=== PATIENT | male | born 1980 | race Caucasian/White ===

== ENCOUNTER → 2022-07-30 11:53 | Outpatient (POV) | payer MEDICAID, SELFPAY ==
--- NOTE | 2022-07-30 12:24 | EXP.PAIN.OV ---
[facility] Data of Consult Patient: new to practice Consult date: 07/30/22 Requesting Physician: Vivien Dobbs APRN Consult Narrative Reason for consult: ,Low back pain, right foot pain History of present illness: Mr. Gilman is a 42 year old male who presents today as a new patient. He is a referral from [facility]. Today he rates his pain a 9 out of 10. Patient states all of his pain is primarily in his low back. He states this is all related to a work injury that occurred 2 years ago. He did have a bulging disc and tried multiple injections for over 1 year. He had anything from epidurals to medial branch blocks however these did not provide significant relief. Patient did end up having a lumbar discectomy in 2021 at [facility]. He states he did initially get some relief however then the pain worsened including right foot and ankle numbness. He did end up having to have emergency surgery at [place] in June due to this. 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 He states he has had some improvement since and now his pain is just back at his lower back. Patient has tried Tylenol and Advil with no additional relief. He is also use lidocaine patches, topicals and ice with no additional relief. Patient does have an at home TENS unit. He has been prescribed [place] 7.5 mg twice a day from an outside provider. Patient denies any side effects from this medication however he states it does nothing for his pain. Patient is interested in any options we may be able to provide to give additional relief. He does state he has had a recent MRI of his lumbar spine and March at [place]. His Benitez is [id number]. Its been reviewed and appropriate. CC: Vivien Dobbs APRN [facility] Disclaimer: The information contained in this section may have been updated after the patient was seen, as this information can be updated by other users. Social History Smoking Status: Smoker, status unknown alcohol intake: former current occupational status: other Travel in the last 8 weeks: None Review of Systems Review of Systems Review of systems:: pertinent systems reviewed and negative unless documented below Review of systems (narrative): Review of Systems: General: No recent weight changes, no fever, no sleep disturbances Respiratory: No cough, no shortness of air, no recurring pulmonary infections Cardiovascular/peripheral vascular: No chest pain, no palpitations, no edema, no shortness of breath Gastrointestinal: No new onset incontinence, normal bowel movements reported Genitourinary: No new onset incontinence Musculoskeletal: Low back pain Psychiatric: [Normal mood/affect] Neurological: [Denies weakness in extremities], [denies balance issues] Meds Home Medications and Allergies New Prescriptions to Start Prescriptions: Objective Narrative: Physical Exam: General: Alert and oriented x3, no acute distress, pleasant and cooperative Lungs: Respirations even and unlabored, symmetrical chest expansion Eyes: PERRL Musculoskeletal: Flexion and extension of lumbar [spine] somewhat guarded secondary to pain, [antalgic gait noted] Neurological: Speech clear, no gross sensory deficit Oswestry index score of 44/88% Opioid Risk Tool Opioid Risk Tool-Male Family hx alcohol abuse: No Family hx illegal drugs: No Family hx rx drug abuse: No Personal hx alcohol abuse: No Personal hx illegal drugs: No Personal hx rx drug abuse: No Age: 16-45 years Hx of sexual abuse: No Mental health issues-ADD,OCD,Bipolar, etc: No Hx of depression: Yes Male Risk Score: 2 Assessment and Plan *Assessment and plan (1) Low back pain: Status: Acute Category: Medical Code(s): M54.50 - Low back pain, unspecified (2) Degenerative disc disease, lumbar: Status: Acute Category: Medical Code(s): M51.36 - Other intervertebral disc degeneration, lumbar regio
[2022-07-30 13:04] VITALS: BP 131/99; PULSE 97; RESP 18; O2SAT 97; BMI 30.7
== END ==
PROVIDERS: Visit Provider Nurse Practitioner Family
DX: M51.16 Intervertebral disc disorders with radiculopathy, lumbar region (principal); M21.379 Foot drop, unspecified foot; Z98.890 Other specified postprocedural states
CPT/HCPCS: 99202; G0463

== ENCOUNTER → 2022-09-24 08:25 | Outpatient (POV) | payer MEDICAID, SELFPAY ==
[2022-09-24 09:55] VITALS: BP 161/106; PULSE 88; RESP 18; O2SAT 96; BMI 33.2
--- NOTE | 2022-09-24 10:17 | A.OFFVIS_ITS ---
[facility] Pain Management SOAP Note Subjective:: This patient is a pleasant 42-year-old male that comes our clinic today requesting narcotics. He presents in a wheelchair today. His history is 2 lumbar disc surgeries. One was 2021 at [facility]. The other was at [place] and no other [place] earlier in 2022. Patient is scheduled with us October 08, 2022 for intrathecal pain pump trial. I discussed in detail with the patient regarding the need to be narcotic free in preparation for the pain pump trial. Patient will continue taking NSAIDs and Tylenol until October 08. Patient's Benitez #[id number] is been reviewed and appropriate. Objective:: Patient is awake alert [place] x3. In no acute distress. Flexion-extension lumbar spine limited due to presenting in a wheelchair today. Patient has significant foot drop on the right. Normal motor and sensory on the left lower extremity. Gait is antalgic. Assessment:: Degenerative disc lumbar spine multilevels. Lumbar radiculopathy. Postlaminectomy syndrome lumbar spine Plan:: Patient will return October 08, 2022 for intrathecal pain pump trial. [facility] Disclaimer: The information contained in this section may have been updated after the patient was seen, as this information can be updated by other users. Medical History (Updated 09/03/22 @ 15:31 by Anisa Barba [facility]) Asthma DDD (degenerative disc disease), lumbar GERD (gastroesophageal reflux disease) HTN (hypertension) Surgical History (Updated 07/30/22 @ 13:08 by Christina Gonzalez RN) H/O knee surgery H/O lumbar discectomy H/O shoulder surgery History of placement of ear tubes Social History (Updated 07/30/22 @ 13:09 by Chrsitina Gonzalez RN) Smoking Status: Smoker, status unknown alcohol intake: former substance use type: denies use current occupational status: other Travel in the last 8 weeks: None
== END ==
PROVIDERS: Visit Provider Nurse Anesthetist, Certified Registered
DX: M51.16 Intervertebral disc disorders with radiculopathy, lumbar region (principal); M96.1 Postlaminectomy syndrome, not elsewhere classified
CPT/HCPCS: 99212; G0463

== ENCOUNTER 2022-10-08 11:57 | Day surgery (SDC) | payer MEDICAID, SELFPAY ==
[2022-10-08] VITALS (8 sets, daily range): BP systolic 143–185; BP diastolic 74–92; PULSE 72–92; RESP 18; TEMP 36.7–37.1; O2SAT 94–98; BMI 30.7
--- NOTE | 2022-10-08 14:23 | PC.NURSE ---
1415- PT AMBULATED FROM WHEELCHAIR TO CHAIR AND STATES PAIN IS IMPROVED. RATES PAIN 3/10
--- NOTE | 2022-10-08 16:30 | EXP.PAIN.PRO ---
Procedure Date: 10/08/22 Time: 16:30 Anesthesiologist:: Baljinder Ceron MD Complications:: None Pre-procedure Diagnosis:: Postlaminectomy syndrome lumbar spine with lumbar radiculopathy symptoms Post-procedure Diagnosis:: Same Indications for Procedure:: This patient is a pleasant 42-year-old white male who we are treating for low back pain with lumbar radiculopathy symptoms. He has had 2 lumbar disc surgeries and according to Ortho since he is probably in need of another surgery. He is then off of oral narcotics as his Ortho physician has stopped prescribing them. He did recommend a intrathecal pain pump. He has failed all previous conservative treatments including injections, oral medications, physical therapy and he is not yet a candidate for surgery. He has had a successful psychological evaluation. He presents for intrathecal pump trial today. Procedure Details:: Pain pump trial Informed consent was obtained and the risk and benefits of the procedure was explained to the patient. The patient was taken to the procedure room and placed prone on the procedure table. Patient was prepped and draped in sterile fashion. C-arm fluoroscopy was used to view the lumbar spine. The skin and subcutaneous tissues were anesthetized using lidocaine. I placed a 18-gauge spinal needle into the L4-5 interspace and advanced until clear CSF was obtained. After this intrathecal catheter was inserted and advanced very easily to the L1 vertebral body. The needle was withdrawn. We were able to freely withdraw clear CSF through the catheter. We then injected intrathecal opioid single shot bolus of 25 mcg followed by saline and followed by the previous CSF that was withdrawn. The needle and catheter were then removed and a Band-Aid was placed. Patient tolerated the procedure well with no complications. We reevaluated the patient after 30 minutes to 1 hour. He was also reassessed by physical therapy. He was 90 to 100% better. He was much more functional. Pain was under control. This was by all means a successful trial. Patient was discharged home neurologic intact with good relief of pain symptoms. We will plan on permanent placement with intrathecal morphine 1 mg per mall to start at 100 mcg/day. Plan and Disposition:: We will follow-up with this patient in 1 week. Will reevaluate symptoms at that time. We will plan on permanent placement if the patient wishes to proceed with permanent placement of intrathecal pain pump. I did tell him that we will not give him any oral narcotics in the interim.
== END 2022-10-08 15:02 | disposition home or self-care (01) ==
LOC: SC.PAINP 11:59
PROVIDERS: Visit Provider Anesthesiology
DX: M96.1 Postlaminectomy syndrome, not elsewhere classified (principal); M54.16 Radiculopathy, lumbar region
CPT/HCPCS: 62323

== ENCOUNTER 2022-11-19 07:09 | Day surgery (SDC) | payer MEDICAID, SELFPAY ==
[2022-11-16 13:00] VITALS: BMI 31.4
[2022-11-19] VITALS (7 sets, daily range): BP systolic 114–141; BP diastolic 73–94; PULSE 75–93; RESP 16–18; TEMP 36.4–36.7; O2SAT 90–98
--- NOTE | 2022-11-19 07:58 | EXP.ANES.CKL ---
[facility] Disclaimer: The information contained in this section may have been updated after the patient was seen, as this information can be updated by other users. Medical History Asthma DDD (degenerative disc disease), lumbar GERD (gastroesophageal reflux disease) HTN (hypertension) Surgical History H/O knee surgery H/O lumbar discectomy H/O shoulder surgery History of appendectomy History of placement of ear tubes Hx of resection of small bowel Family History Other Colon cancer Family history of diabetes mellitus type II Family history of myocardial infarction Family history of stroke Social History Smoking Status: Former smoker alcohol intake: never substance use type: denies use current occupational status: disabled Travel in the last 8 weeks: None household members: significant other housing: house lives independently: Yes marital status: single education level: college service: No caffeine: Yes special vimal needs: No agree to transfusion: No do you feel safe at home: Yes victim of physical abuse: No victim of emotional abuse: No victim of sexual abuse: No would you like helpful sources: No [facility] Anesthesia Checklist Patient Identification Patient Identification: Arm Band and Verbal (Name & ) Structural Data Admitted From: Home Planned Operative Procedure/s: IPPP Consent for Planned Operative Procedure(s) Verified: Yes NPO Status Verified Time NPO: 00:00 Additional verifications Anesthesia Reactions: No Hx Blood Transfusions: No Blood Transfusion Reaction: No Airway Assessment C-Spine Mobility Assessed: Yes TMJ Mobility Assessed: Yes Dentition: Good Dentition Neurological Assessment Level of Consciousness: Awake Hx Seizures: No Numbness or tingling in extremities: No Anesthesia Plan Anesthesia Risk discussed: Yes Anesthesia Plan: Verified ASA Class: II Anesthesia Type: MAC
[2022-11-19 08:07] LABS: Anion Gap 11.3 mEq/L (5-15); Blood Urea Nitrogen 14 mg/dl (9-20); Calcium 8.8 mg/dl (8.4-10.2); Carbon Dioxide 25 mmol/L (22.0-30.0); Chloride 107 mmol/L (98-107); Creatinine Clearance Estimated 175 mL/min (50-200); Estimated Glomerular Filt Rate 107 ml/min (>60); GFR (African American) 129 ML/MIN (>60); Glucose 121 mg/dl (74-100); Potassium 3.3 mmoL/L (3.5-5.1); Sodium 140 mmol/L (136-145)
[2022-11-19 09:17] LABS: Hematocrit 40.9 % (42.0-52.0); Hemoglobin 13.7 g/dL (14.1-18.0); Mean Corpuscular HGB Conc 33.5 g/dL (31.8-35.4); Mean Corpuscular Hemoglobin 29.4 pg (27.0-31.2); Mean Corpuscular Volume 87.8 fl (80-94); Platelet Count 241 K/mm3 (142-424); Red Blood Count 4.66 M/mm3 (4.60-6.20); White Blood Count 10.2 K/mm3 (4.8-10.8)
[2022-11-19 09:18] LABS: Basophils # 0.1 K/mm3 (0-0.2); Basophils % 0.8 % (0.1-2.0); Eosinophils # 0.1 K/mm3 (0.0-0.4); Eosinophils % 0.9 % (0.1-12.0); Lymphocytes # 2.1 K/mm3 (0.7-4.5); Mean Platelet Volume 10.6 fl (7.4-10.4); Monocytes # 0.6 K/mm3 (0.1-1.0); Neutrophils # 7.4 K/mm3 (1.8-7.8); Neutrophils % 71.9 % (37.0-80.0)
--- NOTE | 2022-11-19 12:30 | P.OP_ITS ---
Date of procedure: 11/19/22 Pre-op Diagnosis:: Post laminectomy syndrome lumbar spine with lumbar radiculopathy symptoms Post-op Diagnosis:: Same Procedure performed:: Permanent placement intrathecal pain pump with generator placement and tunneled intrathecal catheter Surgeon:: Baljinder Ceron MD CLINIC CHARGE NURSE:: Other Anesthesia: MAC Estimated blood loss (mL): 5 Clinical Note:: This patient is a pleasant 42-year-old white male who we have been treating for low back pain with lumbar radiculopathy symptoms and postlaminectomy syndrome with CRPS. He has failed all previous conservative therapy. He is off all oral narcotics. He has had a successful psychological evaluation. He has had a successful intrathecal pump trial. He presents for permanent placement of his intrathecal pain pump today. Operative findings:: None Operative note:: Informed consent was obtained the risk and benefits of the procedure were explained to the patient. Patient was taken the operating placed prone on the procedure table. Patient was prepped and draped in sterile fashion. C-arm fluoroscopy was used to view the right flank. [facility] between the 12th rib and iliac crest I made an incision after anesthetizing skin and subcutaneous tissues. I created the pocket for the pump generator. C-arm fluoroscopy was then used to view the lumbar spine. The skin and subcutaneous tissues were an esthetized and lidocaine. I made an incision and dissected down to the lumbar paraspinous fascia. A 17-gauge spinal needle was inserted and advanced into the L5-S1 interspace. After obtaining clear CSF intrathecal catheter was inserted and advanced very easily to the T10 vertebral body. We were unable to advance any further. The stylette of the catheter and the needle withdrawn. Catheter placement was checked in AP and lateral views. The catheter was posterior in the intrathecal space. Catheter was secured to the fascia with anchoring devices and 2-0 Prolene. I filled the pump with 20 mils of intrathecal morphine 1 mg per mill. I tunneled the catheter from the back to the pump pocket and attached catheter to the pump. We were able to freely withdraw clear CSF through the sideport. The pump was placed in the pocket. We did use an antibiotic pouch in the pocket. Again we were able to freely withdraw clear CSF through the catheter access port. Both incisions were irrigated with antibiotic solution. Both incisions were then closed with 2-0 Vicryl followed by 4-0 nylon and saúl. Patient tolerated the procedure well with no complications. Pump was interrogated and started at 100 mcg/day. Patient tolerated the procedure well with no complications. Patient was discharged home neurologic intact with good relief of pain symptoms. Plan and disposition: We will follow-up with this patient in 1 week for wound check and reprogram. We will follow-up in 2 to 3 weeks for suture and staple removal. Condition: stable Disposition: PACU Complications:: None
== END 2022-11-19 12:00 | disposition home or self-care (01) ==
PROVIDERS: Visit Provider Anesthesiology
PROC: (CPT 62350; principal; 2022-11-19 08:30)
DX: M96.1 Postlaminectomy syndrome, not elsewhere classified (principal); M54.16 Radiculopathy, lumbar region
CPT/HCPCS: 62350; 62362; 80048; 85025; 96374; C1772; C1876; J2405

== ENCOUNTER → 2022-11-25 10:18 | Outpatient (POV) | payer MEDICAID, SELFPAY ==
--- NOTE | 2022-11-25 10:24 | A.OFFVIS_ITS ---
[facility] Pain Management SOAP Note Subjective:: Patient is a pleasant 42-year-old male who presents today for postop follow-up of intrathecal pain pump placement on 11/19/2022. We are currently treating the patient for degenerative disc disease of lumbar spine with lumbar radiculopathy symptoms, low back pain, status post lumbar discectomy, CRPS of the lower extremity, history of dropfoot. Today he rates his pain a Patient denies any new trauma or injury. He denies any change location or type of pain he experiences or any problems following his surgical procedure. He states this is all related to a work injury that occurred 2 years ago. He did have a bulging disc and tried multiple injections for over 1 year. He had anything from epidurals to medial branch blocks however these did not provide significant relief. Patient did end up having a lumbar discectomy in 2021 at [facility]. He states he did initially get some relief however then the pain worsened including right foot and ankle numbness. He did end up having to have emergency surgery at [place] in June due to this. 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 He states he has had some improvement since and now his pain is just back at his lower back. Patient has tried Tylenol and Advil with no additional relief. He is also use lidocaine patches, topicals and ice with no additional relief. Patient does have an at home TENS unit. He has been prescribed [place] 7.5 mg twice a day from an outside provider. Patient denies any side effects from this medication however he states it does nothing for his pain. Patient is interested in any options we may be able to provide to give additional relief. He does state he has had a recent MRI of his lumbar spine and March at [place]. His Benitez is [id number]. Its been reviewed and appropriate. [facility] Disclaimer: The information contained in this section may have been updated after the patient was seen, as this information can be updated by other users. Medical History Asthma DDD (degenerative disc disease), lumbar GERD (gastroesophageal reflux disease) HTN (hypertension) Surgical History H/O knee surgery H/O lumbar discectomy H/O shoulder surgery History of appendectomy History of placement of ear tubes Hx of resection of small bowel Family History Other Colon cancer Family history of diabetes mellitus type II Family history of myocardial infarction Family history of stroke Social History Smoking Status: Former smoker alcohol intake: never substance use type: denies use current occupational status: disabled Travel in the last 8 weeks: None household members: significant other housing: house lives independently: Yes marital status: single education level: college service: No caffeine: Yes special vimal needs: No agree to transfusion: No do you feel safe at home: Yes victim of physical abuse: No victim of emotional abuse: No victim of sexual abuse: No would you like helpful sources: No
[2022-11-25 10:34] VITALS: BP 161/93; PULSE 87; RESP 20; O2SAT 95; BMI 31.4
--- NOTE | 2022-11-25 11:21 | EXP.PAIN.PRO ---
Procedure Date: 11/25/22 Time: 10:24 Anesthesiologist:: Vivien Dobbs APRN Complications:: None Pre-procedure Diagnosis:: Degenerative disc disease of lumbar spine with lumbar radiculopathy symptoms, lumbar postlaminectomy syndrome Post-procedure Diagnosis:: Same Indications for Procedure:: Patient is a pleasant 42-year-old male who presents today for postop follow-up of intrathecal pain pump placement on 11/19/2022. We are currently treating the patient for degenerative disc disease of lumbar spine with lumbar radiculopathy symptoms, low back pain, status post lumbar discectomy, CRPS of the lower extremity, history of dropfoot. Today he rates his pain a 8 out of 10. Patient denies any new trauma or injury. He denies any change location or type of pain he experiences or any problems following his surgical procedure. Patient states he continues to have pain in his low back and left knee. He is currently managed with diazepam 5 mg daily from an outside provider. His intrathecal pump medication is morphine 1 mg/mL with a daily dose of 0.1 mg/day. Patient denies any side effects from this medication. Physical Exam: General: Alert and oriented x3, no acute distress, pleasant and cooperative Lungs: Respirations even and unlabored, symmetrical chest expansion Eyes: PERRL Musculoskeletal: Flexion and extension of lumbar [spine] somewhat guarded secondary to pain, [antalgic gait noted] Neurological: Speech clear, no gross sensory deficit Skin: Incision sites clean, dry, well approximated with no erythema noted, saúl and sutures intact Procedure Details:: Informed consent was obtained and the risk and benefits of the procedure were explained to the patient. Patient was taken to the procedure room where noninvasive monitoring was placed including noninvasive blood pressure cuff and pulse oximeter. Patient's pump was interrogated and was reprogrammed to morphine 0.1201 mg/day. The patient tolerated the procedure well with no complications. Plan and Disposition:: Patient's incision sites are clean, dry, well approximated with no erythema noted and sutures and saúl intact. I have discussed with the patient to continue his postop restrictions of minimal bending, lifting or twisting, no submerging in water until his incisions are fully healed and to continue to wear his abdominal binder to prevent seroma formation. I have also discussed with the patient that he may benefit from intra-articular knee injections in the future as well as going over with him regarding seeing his neurosurgeon to discuss again whether or not if surgical intervention is needed in the future. Patient tolerated his intrathecal increase with no complications and was discharged neurologically intact. Patient will return to clinic in 2 weeks for reevaluation of symptoms and possible intrathecal adjustment. I have counseled the patient at this time we will not set up his PTM device. Patient has been instructed to contact the clinic with any concerns before the next appointment. Dr. Ceron has reviewed this note and agrees with this plan of care. This note was dictated using voice recognition software and make contain errors or omissions. -- It Is medically necessary for this patient to continue to have their intrathecal pump refilled at regular intervals. This patient had an intrathecal pain pump implanted after meeting criteria of chronic intractable pain for greater than 3 months and failing conservative treatments. Patient has committed and been compliant to the treatment plan and all planned follow up care. Since implantation of the intrathecal pain pump, the patient has had decreased pain and been more functional. Oral medications have been reduced including intake of oral opioids. Patient continues to do well with intrathecal therapy with decrease in pain symptoms and increase in functional status. Stopping intrathecal medications can lead to life threatening withdrawal, seizur
== END | disposition home or self-care (01) ==
PROVIDERS: Visit Provider Nurse Practitioner Family
DX: M51.16 Intervertebral disc disorders with radiculopathy, lumbar region (principal); M96.1 Postlaminectomy syndrome, not elsewhere classified
CPT/HCPCS: 62368

== ENCOUNTER → 2022-12-01 08:58 | Outpatient (POV) | payer MEDICAID, SELFPAY ==
--- NOTE | 2022-12-01 09:44 | EXP.PAIN.PRO ---
Procedure Date: 12/01/22 Time: 09:44 Anesthesiologist:: Vivien Dobbs APRN Complications:: None Pre-procedure Diagnosis:: Degenerative disc disease of lumbar spine with lumbar radiculopathy symptoms, lumbar postlaminectomy syndrome Post-procedure Diagnosis:: Same Indications for Procedure:: Patient is a pleasant 42-year-old male who presents today for intrathecal pain pump reprogramming adjustment. The patient is being treated for degenerative disc disease of lumbar spine with lumbar radiculopathy symptoms, postlaminectomy syndrome. Patient is currently being managed with morphine 1 mg/mL with a daily dose of 0.1201 mg/day. Patient denies any side effects from this medication. Patient rates pain a 9 out of 10. Drug screen is appropriate. Benitez [id number] has been reviewed and is appropriate. Physical exam General: Alert and oriented x3, no acute distress, pleasant and cooperative Lungs: Respirations even and unlabored, symmetrical chest expansion Eyes: PERRL Musculoskeletal: Flexion and extension of lumbar [spine] somewhat guarded secondary to pain, [antalgic gait noted] Neurological: Speech clear, no gross sensory deficit Skin: Incision sites clean, dry, well approximated mild erythema noted at right lateral incision saúl and sutures intact Procedure Details:: Informed consent was obtained and the risk and benefits of the procedure were explained to the patient. Patient was taken to the procedure room where noninvasive monitoring was placed including noninvasive blood pressure cuff and pulse oximeter. Patient's pump was interrogated and was reprogrammed to morphine 0.1439 mg/day. The patient tolerated the procedure well with no complications. Plan and Disposition:: I have counseled the patient to continue his postop restrictions and that at next week's appointment we will plan on removing sutures and salú if indicated. Patient tolerated his intrathecal adjustment with no complications and was discharged neurologically intact. Patient has been instructed to contact the clinic with any concerns before the next appointment. Dr. Ceron has reviewed this note and agrees with this plan of care. This note was dictated using voice recognition software and make contain errors or omissions. -- It Is medically necessary for this patient to continue to have their intrathecal pump refilled at regular intervals. This patient had an intrathecal pain pump implanted after meeting criteria of chronic intractable pain for greater than 3 months and failing conservative treatments. Patient has committed and been compliant to the treatment plan and all planned follow up care. Since implantation of the intrathecal pain pump, the patient has had decreased pain and been more functional. Oral medications have been reduced including intake of oral opioids. Patient continues to do well with intrathecal therapy with decrease in pain symptoms and increase in functional status. Stopping intrathecal medications can lead to life threatening withdrawal, seizures, cardiac arrest, severe pain, and possible . Pumps that are not refilled at regular intervals can be damages and cause and need for replacement. We continually titrate dose and concentration to optimize pain relief and function. We are limited in concentration for certain drugs to safely deliver medications through the pump and stay within the recommendations from the Polyanalgesic Consensus Committee Guidelines. Depending on dose and concentration these pumps may need to be refilled sooner than 3 months as we titrate.
[2022-12-01 12:04] VITALS: BP 145/102; PULSE 85; RESP 18; O2SAT 96; BMI 14.3
== END | disposition home or self-care (01) ==
PROVIDERS: Visit Provider Nurse Practitioner Family
DX: M51.16 Intervertebral disc disorders with radiculopathy, lumbar region (principal); M96.1 Postlaminectomy syndrome, not elsewhere classified
CPT/HCPCS: 62368; 99213; G0463

== ENCOUNTER → 2022-12-09 09:32 | Outpatient (POV) | payer MEDICAID, SELFPAY ==
--- NOTE | 2022-12-09 09:54 | EXP.PAIN.PRO ---
Procedure Date: 12/09/22 Time: 09:54 Anesthesiologist:: Vivien Dobbs APRN Complications:: None Pre-procedure Diagnosis:: Degenerative disc disease of lumbar spine with lumbar radiculopathy symptoms, lumbar postlaminectomy syndrome Post-procedure Diagnosis:: Same Indications for Procedure:: Patient is a pleasant 42-year-old male who presents today for follow-up and intrathecal pain pump reprogramming adjustment. The patient is being treated for degenerative disc disease of lumbar spine with lumbar radiculopathy symptoms, postlaminectomy syndrome. Today he rates his pain a 9 out of 10. Patient states he continues to have low back and leg pain and feels like he is not at the right dosage on his intrathecal pump. Patient is currently being managed with morphine 1 mg/mL with a daily dose of 0.1439 mg/day. Patient denies any side effects from this medication. Patient rates pain a 9 out of 10. Drug screen is appropriate. Patient is also prescribed diazepam 5 mg daily from an outside provider. [facility] [id number] has been reviewed and is appropriate. Physical exam General: Alert and oriented x3, no acute distress, pleasant and cooperative Lungs: Respirations even and unlabored, symmetrical chest expansion Eyes: PERRL Musculoskeletal: Flexion and extension of lumbar [spine] somewhat guarded secondary to pain, [antalgic gait noted] Neurological: Speech clear, no gross sensory deficit Skin: Incision sites clean, dry, well approximated mild erythema noted at right lateral incision saúl and sutures intact Procedure Details:: Informed consent was obtained and the risk and benefits of the procedure were explained to the patient. Patient was taken to the procedure room where noninvasive monitoring was placed including noninvasive blood pressure cuff and pulse oximeter. Patient's pump was interrogated and was reprogrammed to morphine 0.1726mg/day. The patient tolerated the procedure well with no complications. Plan and Disposition:: Patient's incision sites are clean, dry, well-approximated with mild erythema noted at the right lateral incision. He did have his sutures and saúl all removed during today's visit and Steri-Strips applied. I have counseled the patient to continue his postop restrictions of minimal bending, twisting or lifting, no submerging in water until his incisions are fully healed and to continue to wear his abdominal binder to prevent seroma formation. Patient was set up with his PTM device during today's visit. I have counseled the patient that he will be able to have 4 boluses during a 24-hour period with this device. Teaching was done on the device during today's visit. Patient tolerated his intrathecal increase with no complications and was discharged neurologically intact. Patient will return to clinic in 2 weeks for reevaluation of symptoms and possible readjustment of his intrathecal pump. Patient has been instructed to contact the clinic with any concerns before the next appointment. Dr. Ceron has reviewed this note and agrees with this plan of care. This note was dictated using voice recognition software and make contain errors or omissions. -- It Is medically necessary for this patient to continue to have their intrathecal pump refilled at regular intervals. This patient had an intrathecal pain pump implanted after meeting criteria of chronic intractable pain for greater than 3 months and failing conservative treatments. Patient has committed and been compliant to the treatment plan and all planned follow up care. Since implantation of the intrathecal pain pump, the patient has had decreased pain and been more functional. Oral medications have been reduced including intake of oral opioids. Patient continues to do well with intrathecal therapy with decrease in pain symptoms and increase in functional status. Stopping intrathecal medications can lead to life threatening withdrawal, seizures, cardiac arrest, severe pain, and
[2022-12-09 11:38] VITALS: BP 162/113; PULSE 86; RESP 18; O2SAT 92; BMI 31.4
== END ==
PROVIDERS: Visit Provider Nurse Practitioner Family
DX: M51.16 Intervertebral disc disorders with radiculopathy, lumbar region (principal); M96.1 Postlaminectomy syndrome, not elsewhere classified
CPT/HCPCS: 62368; 99213; G0463

== ENCOUNTER → 2022-12-16 13:41 | Outpatient (POV) | payer MEDICAID, SELFPAY ==
--- NOTE | 2022-12-16 13:58 | EXP.PAIN.PRO ---
Procedure Date: 12/16/22 Time: 13:58 Anesthesiologist:: Vivien Dobbs APRN Complications:: None Pre-procedure Diagnosis:: Degenerative disc disease of lumbar spine with lumbar radiculopathy symptoms, lumbar postlaminectomy syndrome Post-procedure Diagnosis:: Same Indications for Procedure:: Patient is a pleasant 42-year-old male who presents today for intrathecal pain pump reprogramming adjustment. The patient is being treated for degenerative disc disease of lumbar spine with lumbar radiculopathy symptoms, lumbar postlaminectomy syndrome. Patient is currently being managed with morphine 1 mg/mL with a daily dose of 0.1726mg/day. Patient denies any side effects from this medication. Patient rates pain a 10 out of 10. He does state that he just does not feel like he is getting significant relief with this medication. He is requesting to be increased more than 20% at today's visit. He does state that previously his neurosurgeon was wanting to do an additional surgical intervention however he wanted his pain much more controlled. Drug screen is appropriate. [facility] [id number] has been reviewed and is appropriate. Physical exam General: Alert and oriented x3, no acute distress, pleasant and cooperative Lungs: Respirations even and unlabored, symmetrical chest expansion Eyes: PERRL Musculoskeletal: Flexion and extension of lumbar [spine] somewhat guarded secondary to pain, [antalgic gait noted] Neurological: Speech clear, no gross sensory deficit Procedure Details:: Informed consent was obtained and the risk and benefits of the procedure were explained to the patient. Patient was taken to the procedure room where noninvasive monitoring was placed including noninvasive blood pressure cuff and pulse oximeter. Patient's pump was interrogated and was reprogrammed to morphine 0.2073 mg/day. The patient tolerated the procedure well with no complications. Plan and Disposition:: Patient tolerated his intrathecal increase with no complications and was discharged neurologically intact. I have counseled the patient that unfortunately we are not able to go at higher increases due to risk of oversedation or risk of increased side effects. I have explained to the patient that his safety is our highest priority and unfortunately we have increased his pump medication at a slow and gradual rates. Patient acknowledges understanding of this. Patient will return to clinic in 2 weeks for reevaluation of symptoms and plan of care. Patient has been instructed to contact the clinic with any concerns before the next appointment. Dr. Ceron has reviewed this note and agrees with this plan of care. This note was dictated using voice recognition software and make contain errors or omissions. -- It Is medically necessary for this patient to continue to have their intrathecal pump refilled at regular intervals. This patient had an intrathecal pain pump implanted after meeting criteria of chronic intractable pain for greater than 3 months and failing conservative treatments. Patient has committed and been compliant to the treatment plan and all planned follow up care. Since implantation of the intrathecal pain pump, the patient has had decreased pain and been more functional. Oral medications have been reduced including intake of oral opioids. Patient continues to do well with intrathecal therapy with decrease in pain symptoms and increase in functional status. Stopping intrathecal medications can lead to life threatening withdrawal, seizures, cardiac arrest, severe pain, and possible . Pumps that are not refilled at regular intervals can be damages and cause and need for replacement. We continually titrate dose and concentration to optimize pain relief and function. We are limited in concentration for certain drugs to safely deliver medications through the pump and stay within the recommendations from the Polyanalgesic Consensus Committee Guidelines. Depending on dose
[2022-12-16 14:39] VITALS: BP 116/92; PULSE 83; RESP 20; O2SAT 95; BMI 31.4
== END | disposition home or self-care (01) ==
PROVIDERS: Visit Provider Nurse Practitioner Family
DX: M51.16 Intervertebral disc disorders with radiculopathy, lumbar region (principal); M96.1 Postlaminectomy syndrome, not elsewhere classified; Z97.8 Presence of other specified devices
CPT/HCPCS: 62368; 99212; 99213; G0463

== ENCOUNTER → 2022-12-21 13:22 | Outpatient (POV) | payer MEDICAID, SELFPAY ==
[2022-12-21 13:50] VITALS: BP 150/78; PULSE 88; RESP 20; TEMP 37.2; O2SAT 95; BMI 32.1
--- NOTE | 2022-12-21 13:53 | EXP.PAIN.PRO ---
Procedure Date: 12/21/22 Time: 13:50 Anesthesiologist:: Manjinder Leach CRNA Complications:: None Pre-procedure Diagnosis:: Degenerative disc lumbar spine multilevels. Lumbar radiculopathy. Lumbar postlaminectomy syndrome Post-procedure Diagnosis:: Same. Indications for Procedure:: Patient is a very pleasant 42-year-old male that comes our clinic today for follow-up visit regarding his intrathecal pain pump rate. Patient is about 6 weeks into his implant. He is currently being managed with morphine sulfate 1 mg/mL at a rate of 0.2073 mg/day. Patient complained of significant 10/10 pain in the lumbar back area including bilateral hips. He describes pain as constant, dull, aching. Patient presents with a rollator today due to pain in the low back compromising ambulation ability. Patient was in the office on 12/16/2022 for intrathecal pain pump rate increased. He is requesting increase today as well. Procedure Details:: Details of the procedure explained to the patient. The patient taken the procedure room placed in the sitting position. The pump was interrogated. Patient's current rate is 0.2073 mg/day. We will increase him to 0.2283 mg/day. Patient tolerated procedure without difficulty. No complications. Patient will follow-up in 2 weeks for reevaluation. Plan and Disposition:: Patient was discharged without incident.
== END | disposition home or self-care (01) ==
PROVIDERS: Visit Provider Nurse Practitioner Family
DX: M51.16 Intervertebral disc disorders with radiculopathy, lumbar region (principal); M96.1 Postlaminectomy syndrome, not elsewhere classified; Z97.8 Presence of other specified devices
CPT/HCPCS: 62368

== ENCOUNTER → 2023-01-07 10:00 | Outpatient (POV) | payer MEDICAID, SELFPAY ==
[2023-01-07 10:32] VITALS: BP 152/98; PULSE 104; RESP 20; O2SAT 97; BMI 32.1
--- NOTE | 2023-01-07 10:32 | A.OFFVIS_ITS ---
[facility] Pain Management SOAP Note Subjective:: This patient is a very pleasant 42-year-old male that comes our clinic today in a electric scooter. Patient is not ambulatory secondary to lumbar back pain as well as bilateral hip and leg radicular symptoms. Patient had intrathecal pain pump implantation 8 weeks ago. He is currently being managed with morphine sulfate 1 mg/mL at 0.2283 mg/day. Patient was increased 2 weeks ago. Prior to that he had been increased 1 week prior. Patient continued to complain of severe low back pain he describes as constant, dull, sharp, stabbing, debilitating. Patient states the intrathecal pain pump is not working. However, patient had a excellent trial of fentanyl 25 mcg. Patient states since implantation he has essentially had no relief. I discussed in detail with the patient regarding treatment options. I recommend we turn the pump to minimal flow for 7 days. I explained in detail to the patient we would know as to whether the the pump is helping him to some degree based on his response from turning the pump off. Patient does voice some concern regarding turning the pump to minimal flow. However, I informed the patient that we would not continue turning the pump up if in fact is not helping to any degree. Patient states his pain is 10/10 today. Patient's Benitez #[id number] has been reviewed and appropriate. We will see the patient next Tuesday for follow-up visit and decide what we will do regarding the intrathecal pain pump management. Objective:: Patient is awake alert [place] x3. In no acute distress. Flexion-extension lumbar spine guarded secondary to pain. Deep tendon reflexes upper and lower extremities normal. Motor strength upper lower extremities normal however patient in a motorized wheelchair secondary to increased pain. Assessment:: Degenerative disc lumbar spine multilevels. Lumbar radiculopathy. Lumbar postlaminectomy syndrome Plan:: Patient return in 7 days. We will decide at that time regarding intrathecal pain pump rate and future management. [facility] Disclaimer: The information contained in this section may have been updated after the patient was seen, as this information can be updated by other users. Medical History Asthma DDD (degenerative disc disease), lumbar GERD (gastroesophageal reflux disease) HTN (hypertension) Surgical History H/O knee surgery H/O lumbar discectomy H/O shoulder surgery History of appendectomy History of placement of ear tubes Hx of resection of small bowel Family History Other Colon cancer Family history of diabetes mellitus type II Family history of myocardial infarction Family history of stroke Social History Smoking Status: Former smoker alcohol intake: never substance use type: denies use current occupational status: other Travel in the last 8 weeks: None household members: significant other housing: house lives independently: Yes marital status: single education level: college service: No caffeine: Yes special vimal needs: No agree to transfusion: No do you feel safe at home: Yes victim of physical abuse: No victim of emotional abuse: No victim of sexual abuse: No would you like helpful sources: No
== END ==
PROVIDERS: Visit Provider Nurse Anesthetist, Certified Registered
DX: M51.16 Intervertebral disc disorders with radiculopathy, lumbar region (principal); M96.1 Postlaminectomy syndrome, not elsewhere classified; Z97.8 Presence of other specified devices
CPT/HCPCS: 62368; 99212; 99213; G0463

== ENCOUNTER → 2023-01-10 11:25 | Outpatient (POV) | payer MEDICAID, SELFPAY ==
--- NOTE | 2023-01-10 12:11 | EXP.PAIN.PRO ---
Procedure Date: 01/10/23 Time: 12:11 Anesthesiologist:: Vivien Dobbs APRN Complications:: None Pre-procedure Diagnosis:: Degenerative disc disease of lumbar spine with lumbar radiculopathy symptoms, lumbar postlaminectomy syndrome, left knee pain/OA Post-procedure Diagnosis:: Same Indications for Procedure:: Patient is a pleasant 42-year-old male who presents today for intrathecal adjustment and reprogram as well as follow-up. We are currently treating the patient for degenerative disc disease of lumbar spine with lumbar radiculopathy symptoms, lumbar postlaminectomy syndrome, left knee pain. Today he rates his pain a 10 out of 10. Patient denies any new trauma or injury. At his last visit he was adjusted down to minimal flow of his intrathecal pump because he felt like he was not noticing any additional improvement. Patient does state today that he really did get a true picture of how well the pump medication is working. He is currently managed with intrathecal morphine 1 mg/mL with a daily dose of 0.0063 mg/day. Patient denies any side effects from this medication. He was previously at 0.2283 mg/day. Patient does state that it does help with his overall back pain however he continues to have worsening left knee pain. He states the pain is a constant aching, throbbing sensation that is worse with increased activity. He states he has gotten injections in the past in this joint with some improvement. Patient states that his previous orthopedic doctor did state that it was [id number] and that he needed a total knee replacement. Patient does state that the pain interferes with his ability perform activities of daily living such as cooking and cleaning. Patient states he can even walk due to the worsening pain. Patient does present today in a motorized wheelchair. His Benitez is [id number]. Its been reviewed and appropriate. Physical Exam: General: Alert and oriented x3, no acute distress, pleasant and cooperative Lungs: Respirations even and unlabored, symmetrical chest expansion Eyes: PERRL Musculoskeletal: Flexion and extension of left knee, lumbar [spine] somewhat guarded secondary to pain, [antalgic gait noted] Neurological: Speech clear, no gross sensory deficit Procedure Details:: Informed consent was obtained and the risk and benefits of the procedure were explained to the patient. Patient was taken to the procedure room where noninvasive monitoring was placed including noninvasive blood pressure cuff and pulse oximeter. Patient's pump was interrogated and was reprogrammed to morphine 0.2702 mg/day. The patient tolerated the procedure well with no complications. Plan and Disposition:: In order to monitor for worsening side effects and keep him safe we cannot do any more than 20% increases every 2 weeks. I have counseled the patient due to his increasing left knee pain with limited range of motion that he may benefit from a genicular nerve block. Risk and benefits were explained to the patient and he would like to proceed forward with this plan of care. Patient is not on any blood thinners. Patient has tried and failed conservative therapies for his left knee pain such as oral medications, heat and ice, topicals, physical therapy, at home stretching and exercise for longer than 12 weeks. We will submit to insurance for a left genicular nerve block. Patient will return to clinic in 2 weeks for reevaluation of symptoms and intrathecal adjustment and reprogram. Patient tolerated his intrathecal increase with no complications and was discharged neurologically intact. I have counseled the patient that patient has been instructed to contact the clinic with any concerns before the next appointment. Dr. Ceron has reviewed this note and agrees with this plan of care. This note was dictated using voice recognition software and make contain errors or omissions. -- It Is medically necessary for this patient to continue to have their intra
[2023-01-10 12:24] VITALS: BP 136/98; PULSE 96; RESP 21; O2SAT 97; BMI 32.1
== END | disposition home or self-care (01) ==
PROVIDERS: Visit Provider Nurse Practitioner Family
DX: M51.16 Intervertebral disc disorders with radiculopathy, lumbar region (principal); M96.1 Postlaminectomy syndrome, not elsewhere classified; M17.12 Unilateral primary osteoarthritis, left knee; Z97.8 Presence of other specified devices
CPT/HCPCS: 62368; 99213; G0463

== ENCOUNTER 2023-01-25 13:06 | Day surgery (SDC) | payer MEDICAID, SELFPAY ==
[2023-01-25 13:25] VITALS: BP 137/77; PULSE 96; RESP 18; TEMP 37.3; O2SAT 93; BMI 32.1
[2023-01-25 13:37] VITALS: BP 176/111; PULSE 102; RESP 18; O2SAT 95
[2023-01-25 13:39] VITALS: BP 176/100; PULSE 102; RESP 18; O2SAT 95
--- NOTE | 2023-01-25 13:42 | EXP.PAIN.PRO ---
Procedure Date: 01/25/23 Time: 13:45 Anesthesiologist:: Manjinder Leach CRNA Complications:: None Pre-procedure Diagnosis:: Degenerative disc lumbar spine multilevels. Lumbar radiculopathy. Lumbar postlaminectomy syndrome. Post-procedure Diagnosis:: Same. Indications for Procedure:: Patient is a very pleasant 42-year-old male that comes our clinic today for intrathecal pain pump interrogation and refill. Patient currently being managed with morphine sulfate 1 mg/mL at a rate of 0.2702 mg/day. Patient has multiple complaints regarding different anatomical areas of his body that are painful. Patient rates his overall pain 7/10. Patient's intrathecal pain pump was increased by 20% on 01/10/2023. Procedure Details:: Details of the procedure explained to the patient. The patient taken the procedure room placed in the sitting position. The area over the pump was cleaned using chlorhexidine as a cleansing solution. The pump was interrogated. The pump was accessed with ease using a 22-gauge inch and a half needle. 4 mL of solution was withdrawn and discarded appropriately. The pump was then filled with 20 cc of a solution containing morphine sulfate 1 mg/mL. Patient tolerated the procedure without difficulty. There are no complications. Plan and Disposition:: Patient was discharged without incident.
[2023-01-25 13:50] VITALS: BP 152/96; PULSE 100; RESP 18; O2SAT 93
== END 2023-01-25 13:50 | disposition home or self-care (01) ==
PROVIDERS: PCP Internal Medicine; Visit Provider Nurse Anesthetist, Certified Registered
DX: M51.16 Intervertebral disc disorders with radiculopathy, lumbar region (principal); M96.1 Postlaminectomy syndrome, not elsewhere classified; Z97.8 Presence of other specified devices
CPT/HCPCS: 95991

== ENCOUNTER 2023-03-08 13:29 | Day surgery (SDC) | payer MEDICAID, SELFPAY ==
[2023-03-08 13:30] VITALS: BP 150/104; PULSE 104; RESP 16; O2SAT 94; BMI 32.8
[2023-03-08 13:49] VITALS: BP 167/93; PULSE 116; RESP 20; O2SAT 95
[2023-03-08 13:50] VITALS: BP 167/93; PULSE 110; RESP 20; O2SAT 95
--- NOTE | 2023-03-08 14:03 | P.PCN_ITS ---
Procedure Date: 03/08/23 Time: 13:50 Anesthesiologist:: Manjinder Leach CRNA Complications:: None Pre-procedure Diagnosis:: Degenerative disc lumbar spine multiple levels. Lumbar radiculopathy. Lumbar postlaminectomy syndrome. Post-procedure Diagnosis:: Same. Indications for Procedure:: Patient is a 42-year-old male who comes to clinic today for intrathecal pain pump interrogation refill. He is currently being managed with morphine sulfate 1 mg/mL at a rate of 0.2702 mg/day. Patient does not report any side effects or complications. He is not requesting any changes. However, patient is taking oral narcotics following lumbar fusion in [place]. Procedure Details:: Details of the procedure explained the patient. The patient taken procedure room placed in sitting position. The area of the pumps cleansed using chlorhexidine as a cleansing solution. The pump was interrogated. The pump was accessed with ease using a 22-gauge inch and half needle. 6.5 mL of solution was withdrawn discarded appropriately. The pump was then filled with 20 cc of a solution containing morphine sulfate 1 mg/mL. The rate will continue at 0.2702 mg/day. Patient tolerated procedure without difficulty. There are no complications. Plan and Disposition:: Patient was discharged without incident.
[2023-03-08 14:05] VITALS: BP 166/93; PULSE 98; RESP 16; O2SAT 95
== END 2023-03-08 14:05 | disposition home or self-care (01) ==
PROVIDERS: PCP Internal Medicine; Visit Provider Nurse Anesthetist, Certified Registered
DX: M51.16 Intervertebral disc disorders with radiculopathy, lumbar region (principal); M96.1 Postlaminectomy syndrome, not elsewhere classified; Z97.8 Presence of other specified devices
CPT/HCPCS: 95991

== ENCOUNTER 2023-04-19 14:12 | Day surgery (SDC) | payer MEDICAID, SELFPAY ==
[2023-04-19 14:26] VITALS: BP 157/86; PULSE 99; RESP 20; TEMP 36.8; O2SAT 100; BMI 33.0
--- NOTE | 2023-04-19 14:49 | EXP.PAIN.PRO ---
Procedure Date: 04/19/23 Time: 14:45 Anesthesiologist:: Manjinder Leach CRNA Complications:: None Pre-procedure Diagnosis:: Degenerative disc lumbar spine at the levels. Lumbar radiculopathy. Lumbar postlaminectomy syndrome. Post-procedure Diagnosis:: Same. Indications for Procedure:: Patient is a very pleasant 43-year-old male comes our clinic today for intrathecal pain pump interrogation refill. Patient currently being managed with morphine sulfate 1 mg/mL at a rate of 0.2702 mg/day. We will change his concentration of morphine sulfate today to 2 mg/mL. Rate will be increased by 10%. Patient asking for increase in rate due to increased low back pain as well as right knee pain. Procedure Details:: Details of the procedure explained to the patient. The patient taken the procedure room placed in the sitting position. The area over the pumps cleansed using chlorhexidine's cleansing solution. The pump was interrogated. The pump was accessed with ease using a 22-gauge inch and half needle. 5 mL of solution was withdrawn discarded appropriately. The pump was then filled with 20 cc of solution containing morphine sulfate 2 mg/mL. The new pump rate will be 0.2976 mg/day. Patient tolerated the procedure without difficulty. There are no complications. Plan and Disposition:: Patient was discharged without incident.
[2023-04-19 15:00] VITALS: BP 166/97; PULSE 84; O2SAT 99
== END 2023-04-19 15:01 | disposition home or self-care (01) ==
PROVIDERS: PCP Internal Medicine; Visit Provider Nurse Anesthetist, Certified Registered
DX: M51.16 Intervertebral disc disorders with radiculopathy, lumbar region (principal); M96.1 Postlaminectomy syndrome, not elsewhere classified; Z97.8 Presence of other specified devices; Z45.1 Encounter for adjustment and management of infusion pump
CPT/HCPCS: 95991

== ENCOUNTER → 2023-05-18 09:08 | Outpatient (POV) | payer MEDICAID, SELFPAY ==
--- NOTE | 2023-05-18 09:29 | EXP.PAIN.PRO ---
Procedure Date: 05/18/23 Time: 09:29 Anesthesiologist:: Vivien Dobbs APRN Complications:: None Pre-procedure Diagnosis:: degenerative disc disease of lumbar spine with lumbar radiculopathy symptoms, lumbar postlaminectomy syndrome, left knee pain Post-procedure Diagnosis:: Same Indications for Procedure:: Patient is a pleasant 43-year-old male who presents today for intrathecal adjustment and reprogram. We are currently treating the patient for degenerative disc disease of lumbar spine with lumbar radiculopathy symptoms, lumbar postlaminectomy syndrome, left knee pain. Today he rates his pain a out of 10. Patient denies any new trauma or injury. He is currently managed with morphine 2 mg/mL with a daily dose of 0.2976 mg/day. Patient denies any side effects from this medication. He does state that he continues to have worsening pain and would like an increase today. He does state he has been back to see his surgeon who did back surgery in April and due to his worsening pain they are requesting an updated MRI to review the hardware placed or possible changes since surgery. Patient states he did have trouble getting this scheduled due to initially insurance stating that they were out of network. He states he had to go through his family doctor to get it ordered and that they are currently in process to get him scheduled for this procedure. Patient states he did discuss with his surgeon that he felt like the pump was not helping and that the surgeon believes that he needs fentanyl in his intrathecal pump. Patient also states he is experiencing leg swelling and has been going on since November. His Benitez has been reviewed and is appropriate. Physical Exam: General: Alert and oriented x3, no acute distress, pleasant and cooperative Lungs: Respirations even and unlabored, symmetrical chest expansion Eyes: PERRL Musculoskeletal: Flexion and extension of left knee, lumbar [spine] somewhat guarded secondary to pain, [antalgic gait noted] Neurological: Speech clear, no gross sensory deficit Procedure Details:: Informed consent was obtained and the risk and benefits of the procedure were explained to the patient. Patient was taken to the procedure room where noninvasive monitoring was placed including noninvasive blood pressure cuff and pulse oximeter. Patient's pump was interrogated and was reprogrammed to morphine 0.2235 mg/day. The patient tolerated the procedure well with no complications. Plan and Disposition:: Patient tolerated his intrathecal adjustment with 25% decrease with no complications and was discharged neurologically intact. I did review over with the patient due to his continued oxycodone 10 mg prescriptions that have continued from his spine surgeon with approximately 146 tabs given over the last 6 weeks that his pump will be changed to bupivacaine if this continues. I have counseled the patient the risk regarding having a intrathecal opioid as well as taking high-dose oral opioids. Patient acknowledges this. I have also reviewed with the patient that every time we have seen him in clinic or for pain pump refill that we have asked if he has had any side effects including leg swelling and that the patient has previously denied this. I have counseled the patient that if we are not told of any symptoms we cannot make any adjustments accordingly. Patient acknowledges understanding of this and states that he did not think about the leg swelling he was having as a side effect. Patient will return to clinic in 2 weeks for additional reprogramming and adjustment with an additional 25% decrease. We will plan on switching over his intrathecal pump medication from morphine to bupivacaine or fentanyl based off the patient's Benitez history. Patient has been instructed to contact the clinic with any concerns before the next appointment. Dr. Ceron has reviewed this note and agrees with this plan of care. This note was dictated using voice recognition software and make contain errors or omissions. -- It Is medically necessary for this patient to continue to have their intrathecal pump refilled at regular intervals. This patient had an intrathecal pain pump implanted after meeting criteria of chronic intractable pain for greater than 3 months and failing conservative treatments. Patient has committed and been compliant to the treatment plan and all planned follow up care. Since implantation of the intrathecal pain pump, the patient has had decreased pain and been more functional. Oral medications have been reduced including intake of oral opioids. Patient continues to do well with intrathecal therapy with decrease in pain symptoms and increase in functional status. Stopping intrathecal medications can lead to life threatening withdrawal, seizures, cardiac arrest, severe pain, and possible . Pumps that are not refilled at regular intervals can be damages and cause and need for replacement. We continually titrate dose and concentration to optimize pain relief and function. We are limited in concentration for certain drugs to safely deliver medications through the pump and stay within the recommendations from the Polyanalgesic Consensus Committee Guidelines. Depending on dose and concentration these pumps may need to be refilled sooner than 3 months as we titrate.
[2023-05-18 10:25] VITALS: BP 200/98; PULSE 90; RESP 21; O2SAT 95; BMI 32.1
== END ==
LOC: SC.PAIN 09:09
PROVIDERS: Visit Provider Nurse Practitioner Family
DX: M51.16 Intervertebral disc disorders with radiculopathy, lumbar region (principal); M96.1 Postlaminectomy syndrome, not elsewhere classified; M25.562 Pain in left knee; Z97.8 Presence of other specified devices; Z45.1 Encounter for adjustment and management of infusion pump
CPT/HCPCS: 62368; 99213; G0463

== ENCOUNTER 2023-06-22 10:59 | Outpatient (POV) | payer MEDICAID, SELFPAY ==
--- NOTE | 2023-06-22 12:14 | EXP.PAIN.SOA ---
[facility] Pain Management SOAP Note Subjective:: Patient is a pleasant 43-year-old male who presents today for follow-up. We are currently treating the patient for degenerative disc disease of lumbar spine with lumbar radiculopathy symptoms, lumbar postlaminectomy syndrome. Today he rates his pain a 9 out of 10. Patient denies any new trauma or injury. At our last visit we did decrease his pain due to having swelling in his lower extremities. Patient does state that that has improved. He does state he continues to low back and left knee. Patient states that he has been recently to his orthopedic surgeon for his knee and that they did do an intra-articular injection however he felt like it made it worse. Patient states that they have talked about doing a replacement in the upcoming future however this is a workers comp related injury and notes he has not been given a date at this point. Patient does state that he has continued to follow-up with his spine doctor and that they have given him his last pain medication at his visit last week. Patient states that they did wean him down from his prior prescription. At our last visit we did discuss that we would change him to a fentanyl pump as long as he was coming down off his oral medications. Patient states he would like to still proceed forward with this plan of care. Patient is currently managed with morphine 1 mg/mL with a daily dose of 0.2235 mg/day. His Benitez has been reviewed and is appropriate. Review of Systems: General: No recent weight changes, no fever, no sleep disturbances Respiratory: No cough, no shortness of air, no recurring pulmonary infections Cardiovascular/peripheral vascular: No chest pain, no palpitations, no edema, no shortness of breath Gastrointestinal: No new onset incontinence, normal bowel movements reported Genitourinary: No new onset incontinence Musculoskeletal: Low back pain, left knee pain Psychiatric: [Normal mood/affect] Neurological: [Denies weakness in extremities], [denies balance issues] Objective:: Physical Exam: General: Alert and oriented x3, no acute distress, pleasant and cooperative Lungs: Respirations even and unlabored, symmetrical chest expansion Eyes: PERRL Musculoskeletal: Flexion and extension of lumbar [spine] somewhat guarded secondary to pain, [antalgic gait noted] Neurological: Speech clear, no gross sensory deficit Assessment:: Degenerative disc disease of lumbar spine with lumbar radiculopathy symptoms, lumbar postlaminectomy syndrome, left knee pain Plan:: Patient continues to experience significant pain in his low back and left knee. Patient did just recently have imaging done at [facility] and we will reach out to them to get a copy of this. I have counseled the patient although he does have pain in multiple locations if we do change his pump to fentanyl we still not will be able to give opioid medications for his knee pain due to the high risk of overdose and side effects. Patient acknowledges understanding of this. I will order the patient compounded cream as well as send in a prescription of lidocaine patches and naproxen 500 mg twice daily. Patient denies any heart or kidney issues and states in the past he had been on naproxen and it did work well for him. Patient will return to clinic for his next intrathecal refill date where he will be switched to fentanyl 250 mcg/mL with a daily dose of 25 mcg/day. We will see the patient back in the clinic at the next intrathecal refill. Patient has been instructed to contact the clinic with any concerns before the next appointment. Dr. Ceron has reviewed this note and agrees with this plan of care. This note was dictated using voice recognition software and make contain errors or omissions. -- It Is medically necessary for this patient to continue to have their intrathecal pump refilled at regular intervals. This patient had an intrathecal pain pump implanted after meeting criteria of chronic intractable pain for greater than 3 months and failing conservative treatments. Patient has committed and been compliant to the treatment plan and all planned follow up care. Since implantation of the intrathecal pain pump, the patient has had decreased pain and been more functional. Oral medications have been reduced including intake of oral opioids. Patient continues to do well with intrathecal therapy with decrease in pain symptoms and increase in functional status. Stopping intrathecal medications can lead to life threatening withdrawal, seizures, cardiac arrest, severe pain, and possible . Pumps that are not refilled at regular intervals can be damages and cause and need for replacement. We continually titrate dose and concentration to optimize pain relief and function. We are limited in concentration for certain drugs to safely deliver medications through the pump and stay within the recommendations from the Polyanalgesic Consensus Committee Guidelines. Depending on dose and concentration these pumps may need to be refilled sooner than 3 months as we titrate. [facility] Disclaimer: The information contained in this section may have been updated after the patient was seen, as this information can be updated by other users. Medical History Asthma DDD (degenerative disc disease), lumbar GERD (gastroesophageal reflux disease) HTN (hypertension) Surgical History H/O knee surgery H/O lumbar discectomy H/O shoulder surgery History of appendectomy History of placement of ear tubes Hx of resection of small bowel Family History Other Colon cancer Family history of diabetes mellitus type II Family history of myocardial infarction Family history of stroke Social History (Updated 04/19/23 @ 14:27 by Sheila Harrell RN) Smoking Status: Former smoker tobacco type: cigarettes packs per day: 1 alcohol intake: never substance use type: denies use current occupational status: other Travel in the last 8 weeks: None household members: significant other housing: house lives independently: Yes marital status: single education level: college service: No caffeine: Yes special vimal needs: No agree to transfusion: No do you feel safe at home: Yes victim of physical abuse: No victim of emotional abuse: No victim of sexual abuse: No would you like helpful sources: No
[2023-06-22 12:18] VITALS: BP 164/99; PULSE 95; RESP 18; O2SAT 95; BMI 32.1
== END 2023-06-22 23:59 | disposition home or self-care (01) ==
PROVIDERS: Visit Provider Nurse Practitioner Family
DX: M51.16 Intervertebral disc disorders with radiculopathy, lumbar region (principal); M96.1 Postlaminectomy syndrome, not elsewhere classified; M25.562 Pain in left knee; Z97.8 Presence of other specified devices
CPT/HCPCS: 99212; G0463

== ENCOUNTER 2023-07-05 12:28 | Day surgery (SDC) | payer MEDICAID, SELFPAY ==
[2023-07-05 12:57] VITALS: BP 161/88; PULSE 87; RESP 18; TEMP 36.8; O2SAT 98; BMI 32.1
--- NOTE | 2023-07-05 13:07 | EXP.PAIN.PRO ---
Procedure Date: 07/05/23 Time: 12:50 Anesthesiologist:: Manjinder Leach CRNA Complications:: None Pre-procedure Diagnosis:: Degenerative disc lumbar spine multilevels. Lumbar radiculopathy. Lumbar postlaminectomy syndrome. Post-procedure Diagnosis:: Same. Indications for Procedure:: Patient presents today for intrathecal pain pump medication exchange. He is currently being managed with morphine sulfate 1 mg/mL with a daily dose of 0.2235 mg/day. Patient's current medication will be changed out for fentanyl 250 mcg/mL at a daily dose of 25 mcg/day. Procedure Details:: Details of procedure explained to the patient. The patient taken procedure and placed in the prone position. The over the pump was cleansed using chlorhexidine cleansing solution. The pump was interrogated. The pump was accessed with ease using a 22-gauge inch and half needle. 7 mL of solution was withdrawn discarded appropriate. The pump was then filled with 20 cc of solution containing fentanyl 250 mcg/mL. Daily dose will be set at 25 mcg/day. Patient tolerated procedure without difficulty. There are no complications. Plan and Disposition:: Patient will follow-up in clinic in 2 weeks. He was discharged without incident.
[2023-07-05 13:20] VITALS: BP 147/97; PULSE 86; RESP 18; O2SAT 98
[2023-07-05 14:40] VITALS: BP 186/100; PULSE 92; RESP 18; O2SAT 97
[2023-07-05 14:41] VITALS: BP 186/100; PULSE 92; RESP 18; O2SAT 97
== END 2023-07-05 13:20 | disposition home or self-care (01) ==
PROVIDERS: Visit Provider Nurse Anesthetist, Certified Registered
DX: M51.16 Intervertebral disc disorders with radiculopathy, lumbar region (principal); M96.1 Postlaminectomy syndrome, not elsewhere classified; Z97.8 Presence of other specified devices; Z45.1 Encounter for adjustment and management of infusion pump
CPT/HCPCS: 62370

== ENCOUNTER 2023-07-27 10:06 | Outpatient (POV) | payer MEDICAID, SELFPAY ==
--- NOTE | 2023-07-27 10:43 | EXP.PAIN.PRO ---
Procedure Date: 07/27/23 Time: 10:43 Anesthesiologist:: Vivien Dobbs APRN Complications:: None Pre-procedure Diagnosis:: Degenerative disc disease of lumbar spine with lumbar radiculopathy symptoms, lumbar postlaminectomy syndrome Post-procedure Diagnosis:: Same Indications for Procedure:: Patient is a pleasant 43-year-old male who presents today for intrathecal adjustment and reprogram. Today he rates his pain an 8 out of 10. He denies any problems with his intrathecal pump medication. He states that is helping some but he does feel like it still needs additional adjustment. He does state that recently his sister and he did have to drive 7 hours away for this and that the long drive worsened his pain requiring him to go to the ER for evaluation. Patient states that they did reach out to Dr. Ceron and he did end up getting an injection which did help his symptoms. He is currently managed with intrathecal fentanyl 250 mcg/mL with a daily dose of 25 mcg/day. His Benitez has been reviewed and is appropriate. #[id number] Physical Exam: General: Alert and oriented x3, no acute distress, pleasant and cooperative Lungs: Respirations even and unlabored, symmetrical chest expansion Eyes: PERRL Musculoskeletal: Flexion and extension of lumbar [spine] somewhat guarded secondary to pain, [antalgic gait noted] Neurological: Speech clear, no gross sensory deficit Procedure Details:: Informed consent was obtained and the risk and benefits of the procedure were explained to the patient. Patient was taken to the procedure room where noninvasive monitoring was placed including noninvasive blood pressure cuff and pulse oximeter. Patient's pump was interrogated and was reprogrammed to fentanyl 30.02 mcg/day. The patient tolerated the procedure well with no complications. Plan and Disposition:: Patient tolerated his intrathecal increase with no complications and was discharged neurologically intact. Patient does state that the compounded cream did significantly improve his symptoms however he left there is at his future [id number]'s house that is out of state so if he is ordering a new prescription of it. Patient will return to clinic in 2 weeks for reevaluation of symptoms and additional adjustment and reprogram. Patient has been instructed to contact the clinic with any concerns before the next appointment. Dr. Ceron has reviewed this note and agrees with this plan of care. This note was dictated using voice recognition software and make contain errors or omissions. -- It Is medically necessary for this patient to continue to have their intrathecal pump refilled at regular intervals. This patient had an intrathecal pain pump implanted after meeting criteria of chronic intractable pain for greater than 3 months and failing conservative treatments. Patient has committed and been compliant to the treatment plan and all planned follow up care. Since implantation of the intrathecal pain pump, the patient has had decreased pain and been more functional. Oral medications have been reduced including intake of oral opioids. Patient continues to do well with intrathecal therapy with decrease in pain symptoms and increase in functional status. Stopping intrathecal medications can lead to life threatening withdrawal, seizures, cardiac arrest, severe pain, and possible . Pumps that are not refilled at regular intervals can be damages and cause and need for replacement. We continually titrate dose and concentration to optimize pain relief and function. We are limited in concentration for certain drugs to safely deliver medications through the pump and stay within the recommendations from the Polyanalgesic Consensus Committee Guidelines. Depending on dose and concentration these pumps may need to be refilled sooner than 3 months as we titrate.
[2023-07-27 13:05] VITALS: BP 176/96; PULSE 106; RESP 20; O2SAT 98; BMI 32.1
== END 2023-07-27 23:59 | disposition home or self-care (01) ==
PROVIDERS: Visit Provider Nurse Practitioner Family
DX: M51.16 Intervertebral disc disorders with radiculopathy, lumbar region (principal); M96.1 Postlaminectomy syndrome, not elsewhere classified; Z97.8 Presence of other specified devices; Z45.1 Encounter for adjustment and management of infusion pump
CPT/HCPCS: 62368; 99213; G0463

== ENCOUNTER 2023-08-10 15:03 | Outpatient (POV) | payer MEDICAID, SELFPAY ==
--- NOTE | 2023-08-10 15:43 | EXP.PAIN.PRO ---
Procedure Date: 08/10/23 Time: 15:43 Anesthesiologist:: Vivien Dobbs APRN Complications:: None Pre-procedure Diagnosis:: Degenerative disc disease of lumbar spine with lumbar radiculopathy symptoms, lumbar postlaminectomy syndrome Post-procedure Diagnosis:: same Indications for Procedure:: Patient is a 43-year-old male who presents today for intrathecal adjustment and reprogram. Today he rates his pain a 10 out of 10. Patient denies any new trauma or injury. He does state with his last 20% increase he did not get any additional relief. Patient is currently managed with intrathecal fentanyl 250 mcg/mL with a daily dose of 30.02 mcg/day. Patient denies any side effects from this medication. He does state that he has been back to his neurosurgeon who states that he was not recommending any additional surgery at this time. Patient does state that he did quiz him about possible spine doctors that you hear about online that are offering to pay for services including additional surgery. He states today he is asking for our recommendation regarding this as well. He states that the neurosurgeon was not a fan of this option and did not recommend it. Patient does also state that he is still not gotten back in touch with the pharmacy regarding his compounded cream. Patient did leave his original prescription at his home in a different state when he went back for a . He does state that this was helping percent of his additional pains and would like refills. He is requesting the telephone number for today's visit. His Benitez has been reviewed and is appropriate. Physical Exam: General: Alert and oriented x3, no acute distress, pleasant and cooperative Lungs: Respirations even and unlabored, symmetrical chest expansion Eyes: PERRL Musculoskeletal: Flexion and extension of lumbar [spine] somewhat guarded secondary to pain, [antalgic gait noted] Neurological: Speech clear, no gross sensory deficit Procedure Details:: Informed consent was obtained and the risk and benefits of the procedure were explained to the patient. Patient was taken to the procedure room where noninvasive monitoring was placed including noninvasive blood pressure cuff and pulse oximeter. Patient's pump was interrogated and was reprogrammed to fentanyl 35.98 mcg/day. The patient tolerated the procedure well with no complications. Plan and Disposition:: Patient tolerated his intrathecal increase with no complications and was discharged neurologically intact. I have counseled the patient that I do not recommend the patient to contact online services regarding possible spinal surgery. I have counseled the patient that if his neurosurgeon also did not think this was a good idea I would not recommend he proceed forward with that. Patient does state initially his pump had been all covered by his Worker[employer]. claim however that once he had his surgery they dropped him and he had to knot picker [employer] Medicaid services. He does state that he has a follow-up appointment next month with them and is hoping to get back on this insurance. Patient will return to clinic in 2 weeks for additional adjustment and reprogram. Patient has been instructed to contact the clinic with any concerns before the next appointment. Dr. Ceron has reviewed this note and agrees with this plan of care. This note was dictated using voice recognition software and make contain errors or omissions. -- It Is medically necessary for this patient to continue to have their intrathecal pump refilled at regular intervals. This patient had an intrathecal pain pump implanted after meeting criteria of chronic intractable pain for greater than 3 months and failing conservative treatments. Patient has committed and been compliant to the treatment plan and all planned follow up care. Since implantation of the intrathecal pain pump, the patient has had decreased pain and been more functional. Oral medications have been reduced including intake of oral opioids. Patient continues to do well with intrathecal therapy with decrease in pain symptoms and increase in functional status. Stopping intrathecal medications can lead to life threatening withdrawal, seizures, cardiac arrest, severe pain, and possible . Pumps that are not refilled at regular intervals can be damages and cause and need for replacement. We continually titrate dose and concentration to optimize pain relief and function. We are limited in concentration for certain drugs to safely deliver medications through the pump and stay within the recommendations from the Polyanalgesic Consensus Committee Guidelines. Depending on dose and concentration these pumps may need to be refilled sooner than 3 months as we titrate.
[2023-08-10 16:11] VITALS: BP 182/100; PULSE 102; RESP 20; O2SAT 96; BMI 32.1
== END 2023-08-10 23:59 | disposition home or self-care (01) ==
PROVIDERS: Visit Provider Nurse Practitioner Family
DX: M51.16 Intervertebral disc disorders with radiculopathy, lumbar region (principal); M96.1 Postlaminectomy syndrome, not elsewhere classified; Z97.8 Presence of other specified devices; Z45.1 Encounter for adjustment and management of infusion pump
CPT/HCPCS: 62368; 99213; G0463

== ENCOUNTER 2023-08-31 14:16 | Outpatient (POV) | payer MEDICAID, SELFPAY ==
[2023-08-31 14:44] VITALS: BP 132/85; PULSE 80; RESP 18; O2SAT 98; BMI 32.1
--- NOTE | 2023-08-31 14:53 | P.PCN_ITS ---
Procedure Date: 08/31/23 Time: 14:53 Anesthesiologist:: Vivien Dobbs APRN Complications:: None Pre-procedure Diagnosis:: Degenerative disc disease of lumbar spine with lumbar radiculopathy symptoms, lumbar postlaminectomy syndrome Post-procedure Diagnosis:: Same Indications for Procedure:: Patient is a pleasant 43-year-old male who presents today for intrathecal adjustment and reprogram. Patient denies any new trauma or injury. He does state that he continues to have the chronic low back pain and states that the current dosage of fentanyl 250 mcg/mL with a daily dose of 35.98 mcg/day still does not seem to be providing significant relief. He denies any side effects from this medication. He is prescribed compounded cream from our office and diazepam from an outside provider. His Benitez has been reviewed and is appropriate. Physical Exam: General: Alert and oriented x3, no acute distress, pleasant and cooperative Lungs: Respirations even and unlabored, symmetrical chest expansion Eyes: PERRL Musculoskeletal: Flexion and extension of lumbar [spine] somewhat guarded second adrian to pain, [antalgic gait noted] Neurological: Speech clear, no gross sensory deficit Procedure Details:: Informed consent was obtained and the risk and benefits of the procedure were explained to the patient. Patient was taken to the procedure room where noninvasive monitoring was placed including noninvasive blood pressure cuff and pulse oximeter. Patient's pump was interrogated and was reprogrammed to fentanyl 50.42 mcg/day. The patient tolerated the procedure well with no complications. Plan and Disposition:: Patient tolerated his intrathecal increase with no complications and was discharged neurologically intact. Patient was counseled that if he has any increased weakness in his legs or abnormal side effects that he is to come back to our office immediately or call eyes. Patient states he was going to go downstairs and smoke a cigarette or 2 and that if he felt anything change that he would immediately come back at. Patient will return to clinic in 2 weeks for reevaluation of symptoms and plan of care. Patient has been instructed to contact the clinic with any concerns before the next appointment. Dr. Ceron has reviewed this note and agrees with this plan of care. This note was dictated using voice recognition software and make contain errors or omissions. -- It Is medically necessary for this patient to continue to have their intrathecal pump refilled at regular intervals. This patient had an intrathecal pain pump implanted after meeting criteria of chronic intractable pain for greater than 3 months and failing conservative treatments. Patient has committed and been compliant to the treatment plan and all planned follow up care. Since implantation of the intrathecal pain pump, the patient has had decreased pain and been more functional. Oral medications have been reduced including intake of oral opioids. Patient continues to do well with intrathecal therapy with decrease in pain symptoms and increase in functional status. Stopping intrathecal medications can lead to life threatening withdrawal, seizures, cardiac arrest, severe pain, and possible . Pumps that are not refilled at regular intervals can be damages and cause and need for replacement. We continually titrate dose and concentration to optimize pain relief and function. We are limited in concentration for certain drugs to safely deliver medications through the pump and stay within the recommendations from the Polyanalgesic Consensus Committee Guidelines. Depending on dose and concentration these pumps may need to be refilled sooner than 3 months as we titrate.
== END 2023-08-31 23:59 | disposition home or self-care (01) ==
PROVIDERS: Visit Provider Nurse Practitioner Family
DX: M51.16 Intervertebral disc disorders with radiculopathy, lumbar region (principal); M96.1 Postlaminectomy syndrome, not elsewhere classified; Z97.8 Presence of other specified devices; Z45.1 Encounter for adjustment and management of infusion pump
CPT/HCPCS: 62368; 99212; G0463

== ENCOUNTER 2023-11-08 08:42 | Day surgery (SDC) | payer MEDICAID, SELFPAY ==
[2023-11-08 09:10] VITALS: BP 158/99; PULSE 109; RESP 18; TEMP 36.9; O2SAT 98; BMI 33.0
--- NOTE | 2023-11-08 09:20 | EXP.PAIN.PRO ---
Procedure Date: 11/08/23 Time: 09:10 Anesthesiologist:: Manjinder Leach CRNA Complications:: None Pre-procedure Diagnosis:: Degenerative disc lumbar spine multilevels. Lumbar radiculopathy. Lumbar postlaminectomy syndrome. Post-procedure Diagnosis:: Same. Indications for Procedure:: Patient is a very pleasant 43-year-old male comes to clinic today for intrathecal pain pump interrogation refill. Patient's pump was interrogated. Patient reports hearing at low volume signal from the pump. 0.5 mL of solution was withdrawn from the pump and discarded appropriately. Patient has had several family health issues that he has been helping with and has not been able to make his appointments over the last 6 to 8 weeks. Procedure Details:: Details of the procedure explained to the patient. The patient taken procedure room placed in sitting position. They over the pumps cleansed using chlorhexidine's cleansing solution. The pump was interrogated. The pump was accessed with ease using a 22-gauge inch and half needle. 0.5 mL of solution was withdrawn discarded appropriate. The pump was then filled with 20 cc of solution containing fentanyl during 50 mcg/mL at a rate of 50.42 mcg/day. Patient tolerated procedure without difficulty. There are no complications. Plan and Disposition:: Patient was discharged without incident.
--- NOTE | 2023-11-08 09:29 | PC.NURSE ---
PT LEFT WITHOUT BEING SEEN AFTER PROCEDURE
--- NOTE | 2023-11-08 14:06 | PC.NURSE ---
Pt left without doing his urine drug screen. Pt was notified of drug screen order, pt stated was going to given something to his and would be back but did not return. Will notify Dustin Dobbs APRN.
== END 2023-11-08 09:29 | disposition home or self-care (01) ==
PROVIDERS: Visit Provider Nurse Anesthetist, Certified Registered
DX: G89.29 Other chronic pain (principal); M51.36 Other intervertebral disc degeneration, lumbar region
CPT/HCPCS: 95991

== ENCOUNTER 2024-01-31 08:01 | Day surgery (SDC) | payer MEDICAID, SELFPAY ==
[2024-01-31 08:30] VITALS: BP 161/80; PULSE 102; RESP 18; TEMP 36.7; O2SAT 97; BMI 31.5
--- NOTE | 2024-01-31 08:52 | EXP.PAIN.PRO ---
Procedure Date: 01/31/24 Time: 08:35 Anesthesiologist:: Manjinder Leach CRNA Complications:: None Pre-procedure Diagnosis:: Degenerative disc lumbar spine multilevels. Lumbar radiculopathy. Lumbar postlaminectomy syndrome. Chronic pain syndrome. Post-procedure Diagnosis:: Same. Indications for Procedure:: Patient is a pleasant 43-year-old male who comes our clinic today for intrathecal pain pump interrogation and refill. He is currently being managed with fentanyl 250 mcg/mL at a rate of 50.42 mcg/day. He is requesting increase due to low back pain with activity. Patient reports having difficulty walking with his cane that typically is not an issue. I will increase his pump 5%. He rates his pain 7/10. Patient is awake alert [place] x 3. In no acute distress. Flexion-extension cervical lumbar spine guarded secondary to pain. Deep tendon reflexes upper and lower extremities normal. Motor strength upper extremities normal. Lower extremities not evaluated. Patient arrives in a electrical scooter per usual. There is no gross sensory deficit. Procedure Details:: Details of the procedure explained to the patient. The patient taken procedure room placed in sitting position. The area of the pump is cleansed using chlorhexidine as a cleansing solution. The pump was interrogated. The pump was accessed with ease using a 22-gauge inch and half needle. 2 and half cc was removed and discarded appropriately. The pump was then filled with 20 cc of solution containing fentanyl 250 mcg/mL. The rate will increase to 5 2.95 mcg/day. Patient tolerated procedure without difficulty. There are no complications. Plan and Disposition:: Patient was discharged without incident.
[2024-01-31 08:56] VITALS: BP 147/91; PULSE 97; RESP 18; O2SAT 100
== END 2024-01-31 08:56 | disposition home or self-care (01) ==
LOC: SC.PAINP 08:01
PROVIDERS: Visit Provider Nurse Anesthetist, Certified Registered
DX: M51.16 Intervertebral disc disorders with radiculopathy, lumbar region (principal); M96.1 Postlaminectomy syndrome, not elsewhere classified; G89.4 Chronic pain syndrome; Z79.891 Long term (current) use of opiate analgesic
CPT/HCPCS: 95991

== ENCOUNTER 2024-05-01 09:48 | Day surgery (SDC) | payer MEDICAID, SELFPAY ==
[2024-05-01 10:28] VITALS: BP 172/101; PULSE 104; RESP 16; TEMP 36.8; O2SAT 97; BMI 32.3
--- NOTE | 2024-05-01 10:52 | EXP.PAIN.PRO ---
Procedure Date: 05/01/24 Time: 10:30 Anesthesiologist:: Manjinder Leach CRNA Complications:: None Pre-procedure Diagnosis:: Degenerative disc lumbar spine multilevels. Lumbar radiculopathy. Lumbar postlaminectomy syndrome. Post-procedure Diagnosis:: Same Indications for Procedure:: Patient is a 44-year-old male who comes our clinic today for intrathecal pain pump interrogation and refill. Patient currently being managed with fentanyl 2 and 50 mcg/mL at a rate of 52.95 mcg/day. He is requesting increase in the rate due to low back pain. He rates his pain 7/10. Procedure Details:: Details of the procedure explained to the patient. The patient taken procedure room placed in sitting position. The area over the pump was cleansed using chlorhexidine's cleansing solution. The pump was interrogated. The pump was accessed with ease using a 22-gauge inch and half needle. 0.5 mL solution was withdrawn discarded appropriate. The pump was then filled with 20 cc of solution containing fentanyl 250 mcg/mL. The rate will be increased by 5%. The new rate will be 55.63 mcg/day. Patient tolerated procedure without difficulty. No complications. Plan and Disposition:: Patient was discharged without incident.
[2024-05-01 11:00] VITALS: BP 165/120; PULSE 90; RESP 16; TEMP 36.9; O2SAT 98
== END 2024-05-01 11:00 | disposition home or self-care (01) ==
PROVIDERS: Visit Provider Nurse Anesthetist, Certified Registered
DX: M51.16 Intervertebral disc disorders with radiculopathy, lumbar region (principal); M96.1 Postlaminectomy syndrome, not elsewhere classified
CPT/HCPCS: 62370

== ENCOUNTER 2024-05-14 11:07 | Outpatient (POV) | payer MEDICAID, SELFPAY ==
--- NOTE | 2024-05-14 11:41 | P.PCN_ITS ---
Procedure Date: 05/14/24 Time: 11:41 Anesthesiologist:: Vivien Dobbs APRN Complications:: None Pre-procedure Diagnosis:: Degenerative disc disease of lumbar spine with lumbar radiculopathy symptoms, lumbar postlaminectomy syndrome, left knee pain Post-procedure Diagnosis:: Same Indications for Procedure:: Patient is a pleasant 44-year-old male who presents today for intrathecal adjustment and reprogram as well as worsening pain in his left knee. Patient does rate his pain an 8 out of 10. He denies any new falls or injuries. Patient does state from our last appointment he had several things that came up at home including both of his parents . Patient states he has been dealing a lot with the stress of this and settling the states. He does state that he the chronic knee pain which he has talked to our office about just continues to get worse over time. He describes it as a constant aching, throbbing sensation and that this was a work-related injury around the same time of his back. He states that he does know that he is going to have to have a knee replacement however is trying to prevent doing this at this time. He does state the pain interferes with his ability perform activities of daily living such as cooking and cleaning. Patient is currently managed with fentanyl 250 mcg/mL with a daily dose of 55.63 mcg/day. He denies any side effects from this medication. He has prescribed diazepam from an outside provider and compounded cream from our office. His Benitez has been reviewed. Physical Exam: General: Alert and oriented x3, no acute distress, pleasant and cooperative Lungs: Respirations even and unlabored, symmetrical chest expansion Eyes: PERRL Musculoskeletal: Flexion and extension of left knee somewhat guarded secondary to pain, [antalgic gait noted] Neurological: Speech clear, no gross sensory deficit Procedure Details:: Informed consent was obtained and the risk and benefits of the procedure were explained to the patient. Patient did have noninvasive monitoring was placed in cluding noninvasive blood pressure cuff and pulse oximeter. Patient's pump was interrogated and was reprogrammed to fentanyl 58.44 mcg/day. The patient tolerated the procedure well with no complications. Plan and Disposition:: Patient tolerated his intrathecal increase with no complications and was discharged neurologically intact. I did discuss with the patient that I do believe he would be a beneficial candidate of a intra-articular left knee injection due to his limited range of motion of that joint. Risk and benefits were discussed with the patient and he would like to proceed forward with this plan of care. Patient has tried and failed conservative therapy including oral medications, heat and ice, topicals, at home exercising and stretching for longer than 12 weeks. Patient will be scheduled for a left knee intra-articular injection without fluoroscopy or ultrasound. Patient has been instructed to contact the clinic with any concerns before the next appointment. Dr. Ceron has reviewed this note and agrees with this plan of care. This note was dictated using voice recognition software and make contain errors or omissions. All injections are used with Lidocaine, Bupivacaine and Depo Medrol. Occasionally urine drug screen is needed to verify patient's compliance with our office pain contract. This is ordered based off specific treatments related to chronic pain with the potential to abuse certain medications.
[2024-05-14 12:02] VITALS: BP 150/105; PULSE 95; RESP 18; O2SAT 100; BMI 31.5
== END 2024-05-14 23:59 | disposition home or self-care (01) ==
PROVIDERS: Visit Provider Nurse Practitioner Family
DX: M51.16 Intervertebral disc disorders with radiculopathy, lumbar region (principal); M96.1 Postlaminectomy syndrome, not elsewhere classified; M25.562 Pain in left knee; Z73.89 Other problems related to life management difficulty
CPT/HCPCS: 62368; 99212; 99213; G0463

== ENCOUNTER 2024-06-29 09:45 | Day surgery (SDC) | payer MEDICAID, SELFPAY ==
[2024-06-29 10:01] VITALS: BP 147/104; PULSE 98; RESP 16; TEMP 36.9; O2SAT 96; BMI 31.5
--- NOTE | 2024-06-29 10:01 | P.PCN_ITS ---
Procedure Date: 06/29/24 Time: 10:01 Anesthesiologist:: Vivien Dobbs APRN Complications:: None Pre-procedure Diagnosis:: Degenerative disc disease of lumbar spine with lumbar radiculopathy symptoms Post-procedure Diagnosis:: Same Indications for Procedure:: Patient is a pleasant 44-year-old male who presents today for intrathecal refill and reprogram. Today he rates his pain 9 out of 10. He denies any new trauma or injury.Patient is prescribed diazepam from an outside provider, compounded cream from our office and does have intrathecal fentanyl 250 mcg/mL. He is currently on 5 58.44 mg/day. He denies any side effects from this medication. He is asking if we can increase. He states that he has been very busy with his diet as a state still and having increased back pain. He does also request if we can reactivate his PTM device.His Benitez has been reviewed and is appropriat e. Physical Exam: General: Alert and oriented x3, no acute distress, pleasant and cooperative Lungs: Respirations even and unlabored, symmetrical chest expansion Eyes: PERRL Musculoskeletal: Flexion and extension of lumbar [spine] somewhat guarded secondary to pain, [antalgic gait noted] Neurological: Speech clear, no gross sensory deficit Procedure Details:: Informed consent was obtained and the risk and benefits of the procedure were explained to the patient. The patient had noninvasive monitoring placed including noninvasive blood pressure cuff and pulse oximeter. Patient's pump was interrogated. The area over the pump was cleansed with chlorhexidine as a cleansing solution. In sterile fashion the pump was accessed with a 22-gauge n eedle. Approximately 7 mls of the pump solution was removed and discarded appropriately. The pump was then refilled with 20 mL's of fentanyl 250 mcg/mL. The needle was withdrawn and a bandage was placed over the puncture site. The infusion rate was reprogrammed and increased to 64.33 mcg/day. The patient tolerated well with no complication. Plan and Disposition:: Patient tolerated the procedure well with no complications and was discharged neurologically intact. I did reactivate his bolus device with 2 mcg per dose with unavailability of 6/day. Patient will return to clinic on or before their next intrathecal refill date. We will see the patient back in the clinic at the next intrathecal refill. Patient has been instructed to contact the clinic with any concerns before the next appointment. Dr. Ceron has reviewed this note and agrees with this plan of care. This note was dictated using voice recognition software and make contain errors or omissions. -- It Is medically necessary for this patient to continue to have their intrathecal pump refilled at regular intervals. This patient had an intrathecal pain pump implanted after meeting criteria of chronic intractable pain for greater than 3 months and failing conservative treatments. Patient has committed and been compliant to the treatment plan and all planned follow up care. Since implantation of the intrathecal pain pump, the patient has had decreased pain and been more functional. Oral medications have been reduced including intake of oral opioids. Patient continues to do well with intrathecal therapy with decrease in pain symptoms and increase in functional status. Stopping intrathecal medications can lead to life threatening withdrawal, seizures, cardiac arrest, severe pain, and possible . Pumps that are not refilled at regular intervals can be damages and cause and need for replacement. We continually titrate dose and concentration to optimize pain relief and function. We are limited in concentration for certain drugs to safely deliver medications through the pump and stay within the recommendations from the Polyanalgesic Consensus Committee Guidelines. Depending on dose and concentration these pumps may need to be refilled sooner than 3 months as we titrate. A UDS is needed to verify patient's compliance with our office pain contract. This is ordered based off specific treatments related to chronic pain with the potential to abuse certain medications.
[2024-06-29 10:04] VITALS: BP 144/98; PULSE 94; RESP 18; O2SAT 96
[2024-06-29 10:05] VITALS: BP 144/98; PULSE 94; RESP 18; O2SAT 96
[2024-06-29 10:22] VITALS: BP 130/92; PULSE 104; RESP 16; O2SAT 97
== END 2024-06-29 10:22 | disposition home or self-care (01) ==
PROVIDERS: Visit Provider Nurse Practitioner Family
DX: M51.16 Intervertebral disc disorders with radiculopathy, lumbar region (principal)
CPT/HCPCS: 62370

== ENCOUNTER 2024-07-16 09:21 | Outpatient (POV) | payer MEDICAID, SELFPAY ==
[2024-07-16 09:39] VITALS: BP 165/81; BP 166/94; PULSE 98; RESP 16; O2SAT 100; BMI 30.7
--- NOTE | 2024-07-16 10:06 | XR_ITS ---
FINAL REPORT TECHNIQUE: 5 views CLINICAL HISTORY: LBP COMPARISON: None FINDINGS: Postoperative changes from a lumbar fusion at the L4-5 level are noted. Minimal levoscoliosis is present. There is mild diffuse degenerative disc disease noted. No acute bony abnormality is identified. IMPRESSION: Mild degenerative changes present without acute bony abnormality. Reviewed, Interpreted and Dictated by Lars Wilkes MD Transcribed by Yenny Mcghee Authenticated and . [facility]
--- NOTE | 2024-07-16 10:16 | P.PCN_ITS ---
Procedure Date: 07/16/24 Time: 09:53 Anesthesiologist:: Vivien Dobbs APRN Complications:: None Pre-procedure Diagnosis:: Degenerative disc disease of lumbar spine with lumbar radiculopathy symptoms, history of spinal fusion, sacroiliitis Post-procedure Diagnosis:: Same Indications for Procedure:: Patient is a pleasant 44-year-old male who presents today for intrathecal adjustment and reprogram as well as worsening pain. He rates his pain a 9 out of 10. He denies any new trauma or injury. He does state that he is just having a lot more pain in his low back now going across both hips whereas prior was more right-sided. He does have numbness that runs into his upper legs. Patient has had this going on for longer than 3 months but feels like it is definitely progressing. Patient has had prior back surgery and that his prior physician is no longer available for additional evaluation. Patient states he is interested in seeing a new neurosurgeon if we are able to send him. Patient does state that the numbness is really bothering him and last night he felt like he had an episode of bowel incontinence that he had not experienced before. Patient does state the pain is constant and interferes with his ability perform activities of daily living such as cooking and cleaning. Patient does state that he still continues to go to the chiropractor however they limit what all activities they do because of his hardware history. He states they do a lot of radiowave and TENS therapy and he does go 4 times a week. Patient does still continue to be very active and do his much as he can. His Benitez has been reviewed. Physical Exam: General: Alert and oriented x3, no acute distress, pleasant and cooperative Lungs: Respirations even and unlabored, symmetrical chest expansion Eyes: PERRL Musculoskeletal: Flexion and extension of lumbar [spine] somewhat guarded secondary to pain, [antalgic gait noted] point tenderness along bilateral SIs with positive bilateral Debbie's, Alesia's, Gaenslen's, compression and distraction exam Neurological: Speech clear, no gross sensory deficit Procedure Details:: Informed consent was obtained and the risk and benefits of the procedure were explained to the patient. Patient did have noninvasive monitoring was placed including noninvasive blood pressure cuff and pulse oximeter. Patient's pump was interrogated and was reprogrammed to fentanyl 73.94 mcg/day. The patient tolerated the procedure well with no complications. Plan and Disposition:: Patient is experiencing worsening pain along the low back and bilateral hips. They did have limited range of motion of the lumbar spine along with point tenderness along bilateral SI joints and a positive bilateral Debbie's, Alesia's, Gaenslen's, compression and distraction exam. I did discuss with the patient that I do believe they would benefit from bilateral SI injections. Risk and benefits were discussed with the patient and they would like to proceed forward with this option. Patient has tried and failed conservative therapy including continued at home stretching exercise for longer than 12 weeks. Patient does and has been seeing chiropractor therapy on a regular basis and has continued physician guided therapy. This will be a diagnostic injection with less than 1 mL of solution injected. I did also discuss with the patient due to his increasing symptoms I would like to order a new lumbar x-ray with an MRI without contrast to follow. Patient does live around [place] and would like to do it closer to home. We will send him with a written order for this imaging. Patient was counseled that once we have the x-ray findings that we will plan on ordering the advanced imaging and once we have that we will plan on referring him to Dr. Marinelli in [place]. Patient agrees with this plan of care. Patient will be scheduled for bilateral SI injections under fluoroscopy. Patient has been instructed to contact the clinic with any concerns before the next appointment. Dr. Ceron has reviewed this note and agrees with this plan of care. This note was dictated using voice recognition software and make contain errors or omissions. All injections are used with Lidocaine or Bupivacaine and Depo Medrol.
== END 2024-07-16 23:59 | disposition home or self-care (01) ==
PROVIDERS: Visit Provider Nurse Practitioner Family
DX: M51.16 Intervertebral disc disorders with radiculopathy, lumbar region (principal); M46.1 Sacroiliitis, not elsewhere classified; Z98.1 Arthrodesis status; Z73.89 Other problems related to life management difficulty
CPT/HCPCS: 62368; 72110; 99212; 99213; G0463

== ENCOUNTER 2024-08-24 10:05 | Day surgery (SDC) | payer MEDICAID, SELFPAY ==
--- OUTSIDE RECORDS SUMMARY | 2024-08-24 10:08 | XMS_ITS | Continuity of Care Document ---
Author Organization [place] - [facility] & [place] [facility] Address [address] [place] [address] Care Team Providers Care Tap And Die Maker Technician Name Role Phone PRIMARY PLUS (FAMILY) Primary Care Provider [phone] Assessment No assessment recorded. Plan of Treatment Reminders Order Date Submit Date Provider Last Modified By Organization Details Last Modified Time Details Appointments None record ed. Lab None record ed. Referral None record ed. Procedures None record ed. Surgeries None record ed. Imaging None record ed. Medication Orders None record ed. Patient TargetsNo targets recorded. Patient Instructions Encounter Date Encounter Id Patient Instructions Last Modified By Organization Details Last Modified Time 08/22/2024 [id number] I have personall y reviewed the data obtained and entered from the scribe, medical laboratory scientist or nurse for this patient for this patient encounter. Discussed with patient. Patient for audiogram. Patient to consider hearing aid evaluation versus ossicular reconstruction. [email or web address] Not available 08/22/2024 10:53:56 Reason for Referral None Reported. Results Created Date Observation Date Name Description Value Unit Range Abnormal Flag Note LastModifiedBy Organization Detail LastModifiedTime 08/23/1912/22/2021 MRI, brain , w/o contr ast No observ ation record ed. [email or web address] Not Available 08/22 09:23:13 08/23/1912/21/2021 CT, tempo ral bone, w/o contr ast No observ ation record ed. [email or web address] Not Available 08/22 09:24:16 08/23/19 25 12/09/2021 audio gram No observ ation record ed. [email or web address] Not Available 08/22 09:25:04 08/23/1908/22/2024 audio gram No observ ation record ed. [email or web address] Not Available 2024 10:16:51 Result Notes None recorded. Problems Name Problem SNOMED Code Status Onset Date Resolution Date Notes Provider Name and Address Organization Details Recorded Time Sensorineural hearing loss 72610786 Active 2024 LINDA MARTIN, [employer] [address], [place], [address], [place] - [facility] - [place] & [place] 5 10:14:51 Conductive hearing loss, bilateral 381534250 Active 2024 LINDA MARTIN, [facility] [address], [place], [address], [place] - [facility] - [place] & [place] 5 10:16:24 Chronic back pain 178204303 Active 2021 Angela daniel, [place] - [facility] - [place] & [place] 3 14:46:02 Asthma 562869663 Active Angela Florez null, [place] - [facility] - [place] & [place] 3 14:46:02 Gastroesophage al reflux disease 343866872 Active 2021 Angela daniel, [place] - [facility] - [place] & [place] 3 14:46:02 Osteoarthritis of knee 259449715 Active 2021 Angela Florez null, [place] - [facility] [place] & [place] 3 14:46:02 Drug abuse 29119799 Active 2021 Angela Florez null, [place] - [facility] [place] & [place] 3 14:46:02 Chronic low back pain 481570394 Active 2022 Angela Florez null, [place] - [facility] - [place] & [place] 3 14:46:02 Seasonal allergic rhinitis 007896259 Active 2022 Angela Florez null[place] - [facility] [place] & [place] 3 14:46:02 Hypertensive disorder 16147126 Active 2021 Angela Gautam null, [place] - [facility] - [place] & [place] 3 14:46:02 Cough 17957928 Active 2021 Angela daniel, JAREK - [facility] - [place] & [place] 3 14:46:02 Mastoiditis 73908253 Active 2021 Angela daniel, JAREK - [facility] - [place] & [place] 3 14:46:02 Essential hypertension 05922334 Active 2022 JAREK Mann - [facility] - [place] & [place] 3 14:46:02 Arthritis of lumbosacral spine 146279617 Active 2021 Angela daniel, [place] - [facility] - [place] & [place] 3 14:46:03 Gastroesophage al reflux disease without esophagitis 818336766 Active 2022 He Guzman MD [address] [place] [address], [address], [place] JAREK - [facility] - [place] & [place] 3 15:31:45 Problem Notes None recorded. Procedures Surgical History Date Name Laterality Status Provider Name and Address Organization Details Recorded Time 06/03/19 23 Back Surgery completed Angela TILLEY - [facility] - [place] & [place] 10/05/2022 14:54:51 05/02/19 22 Appendectomy completed Fabiola TILLEY - [facility] - [place] & [place] 02/25/2022 13:14:03 05/02/19 21 Joint Replacement completed Fabiolavivek Grimm JAREK - [facility] - [place] & [place] 02/25/2022 13:14:03 Other completed Fabiola Grimm JAREK Rachel PREP MANAGER T - [place] & [place] 02/25/2022 13:14:03 ENT Surgery completed Fabiola Grimm JAREK - L [facility] - [place] & [place] 02/25/2022 13:14:03 Imaging Results None recorded. Procedure Notes None recorded. Medical Equipment None Reported. Allergies No known drug allergies Medications Name Sig Start Date Stop Date Status Note LastModified by Organization Details LastModified Time celecoxib 200 mg capsule TAKE 1 CAPSULE BY MOUTH ONCE DAILY IN THE MORNING 05/26 completed Not Available Not Available Not Available cyclobenzap rine 10 mg tablet Take 1 tablet twice a day by oral route as needed. 05/26 completed Not Available Not Available Not Available methocarbam ol 500 mg tablet 05/26 completed Not Available Not Available Not Available prednisone 10 mg tablet TAKE 6 TABLETS ON DAY 1 THEN TAKE 5 TABLETS ON DAY 2 THEN TAKE 4 TABLETS ON DAY 3 THEN TAKE 3 TABLETS ON DAY 4 THEN TAKE 2 TABLETS ON DAY 5 THEN TAKE 1 TABLET ON DAY 6. TAKE ALL DOSES WITH FOOD. 02/25 completed Not Available Not Available Not Available naproxen 375 mg tablet take 1 tablet by mouth twice a day if needed 08/22 completed Not Available Not Available Not Available albuterol sulfate 2.5 mg/3 mL (0.083 %) solution for nebulizatio n Inhale 3 mL 3 times a day by nebulizat ion route. active Not Available Not Available No t Available trazodone 50 mg tablet Take 1 tablet every day by oral route. active Not Available Not Available No t Available cetirizine 10 mg tablet TAKE 1 TABLET BY MOUTH ONCE DAILY 08/22 completed Not Available Not Available Not Available ibuprofen 800 mg tablet TAKE 1 TABLET BY MOUTH THREE TIMES DAILY NEEDED FOR MILD PAIN 10/05 completed Not Available Not Available Not Available metoprolol succinate ER 50 mg tablet,exte nded release 24 hr Take 1 tablet every day by oral route. 10/05 completed Not Available Not Available Not Available hydrocodone 5 mg-acetamin ophen 325 mg tablet TAKE 1 TABLET BY MOUTH EVERY 12 HOURS NEEDED 10/05 completed Not Available Not Available Not Available meloxicam 15 mg tablet TAKE 1 TABLET BY MOUTH DAILY 10/05 completed Not Available Not Available Not Available prednisone 20 mg tablet TAKE 3 TABLETS BY MOUTH ONCE DAILY FOR 5 DAYS 08/22 completed Not Available Not Available Not Available dexamethaso ne 6 mg tablet Take 1 tablet every day by oral route for 7 days. 10/05 completed Not Available Not Available Not Available amlodipine 2.5 mg tablet TAKE ONE (1) TABLET EVERY DAY BY MOUTH 02/25 completed Not Available Not Available Not Available metronidazo le 500 mg tablet TAKE 1 TABLET BY MOUTH THREE TIMES DAILY FOR 10 DAYS 08/22 completed Not Available Not Available Not Available chlorthalid one 25 mg tablet TAKE 1 TABLET BY MOUTH ONCE DAILY 10/05 completed Not Available Not Available Not Available amlodipine 5 mg tablet TAKE ONE (1) TABLET EVERY DAY BY MOUTH 02/25 completed Not Available Not Available Not Available ciprofloxac in 500 mg tablet TAKE 1 TABLET BY MOUTH EVERY 12 HOURS FOR 14 DAYS 02/25 completed Not Available Not Available Not Available sulfamethox azole 800 mg-trimetho prim 160 mg tablet TAKE 1 TABLET BY MOUTH TWICE DAILY FOR 7 DAYS 05/26 completed Not Available Not Available Not Available omeprazole 40 mg capsule,del ayed release TAKE 1 CAPSULE BY MOUTH ONCE DAILY NEEDED FOR BREAKTHRO UGH REFLUX 08/22 completed Not Available Not Available Not Available tramadol 50 mg tablet Take 2 tablets every 8 hours by oral route as needed. 03/04 completed Not Available Not Available Not Available ketorolac 10 mg tablet 01/28 completed Not Available Not Available Not Available prednisone 10 mg tablets in a dose pack TAKE DIRECTED ON THE PACKAGE 02/25 completed Not Available Not Available Not Available nortriptyli ne 25 mg capsule Take 1 capsule every day by oral route at bedtime. 02/25 completed Not Available Not Available Not Available meloxicam 7.5 mg tablet TAKE 1 TABLET BY MOUTH EVERY DAY 12/03 completed Not Available Not Available Not Available prazosin 5 mg capsule TAKE THREE CAPSULES BY MOUTH DAILY AT bedtime active Not Available Not Available No t Available oxycodone-a cetaminophe n 5 mg-325 mg tablet TAKE 1 TABLET BY MOUTH EVERY 6 HOURS FOR UP TO 3 DAYS NEEDED FOR ACUTE PAIN active Not Available Not Available No t Available terbinafine HCl 250 mg tablet TAKE ONE TABLET BY MOUTH DAILY active Not Available Not Available No t Available ofloxacin 0.3 % ear drops INSTILL FIVE (5) DROPS INTO AFFECTED EAR(S) THREE TIMES A DAY FOR TWO (2) WEEKS 01/28 completed Not Available Not Available Not Available famotidine 20 mg tablet TAKE 1 TABLET BY MOUTH TWICE DAILY 10/05 completed Not Available Not Available Not Available methocarbam ol 750 mg tablet TAKE 1 TABLET BY MOUTH THREE TIMES DAILY 10/05 completed Not Available Not Available Not Available Lidoderm 5 % topical patch Apply 1 patch every day by topical route as directed. 08/22 completed Not Available Not Available Not Available diazepam 2 mg tablet Take ONE tablet by MOUTH AT bedtime NEEDED 10/05 completed Not Available Not Available Not Available baclofen 10 mg tablet TAKE 1 TABLET BY MOUTH THREE TIMES DAILY 12/03 completed Not Available Not Available Not Available amlodipine 10 mg tablet TAKE 1 TABLET BY MOUTH ONCE DAILY 08/22 completed Not Available Not Available Not Available hydrocodone 7.5 mg-acetamin ophen 325 mg tablet TAKE 1 TABLET BY MOUTH EVERY 12 HOURS NEEDED FOR CHRONIC PAIN 08/22 completed Not Available Not Available Not Available cephalexin 500 mg capsule take 1 capsule by mouth four times a day for 10 days 02/25 completed Not Available Not Available Not Available paroxetine 30 mg tablet TAKE ONE TABLET BY MOUTH DAILY active Not Available Not Available No t Available paroxetine 20 mg tablet 10/05 completed Not Available Not Available Not Available buspirone 10 mg tablet Take 1 tablet twice a day by oral route as needed for 30 days. 05/26 completed Not Available Not Available Not Available lisinopril 10 mg tablet TAKE 1 TABLET BY MOUTH ONCE DAILY 10/05 completed Not Available Not Available Not Available gabapentin 300 mg capsule Take 1 capsule 3 times a day by oral route for 30 days. 10/05 completed Not Available Not Available Not Available diclofenac sodium 75 mg tablet,janessa yed release TAKE 1 TABLET BY MOUTH TWICE DAILY 11/16 completed Not Available Not Available Not Available hydroxyzine HCl 25 mg tablet TAKE ONE TABLET BY MOUTH THREE times a DAY NEEDED active Not Available Not Available No t Available levetiracet am 750 mg tablet TAKE ONE TABLET BY MOUTH TWICE DAILY active Not Available Not Available No t Available ibuprofen 600 mg tablet take 1 tablet by mouth every 6 hours 10/05 completed Not Available Not Available Not Available methylpredn isolone 4 mg tablets in a dose pack TAKE BY MOUTH DIRECTED ON INSIDE OF PACKAGE 10/05 completed Not Available Not Available Not Available ondansetron 4 mg disintegrat ing tablet DISSOLVE 1 TABLET IN MOUTH THREE TIMES DAILY NEEDED active Not Available Not Available No t Available fluticasone propionate 50 mcg/actuati on nasal spray,suspe nsion INHALE TWO (2) SPRAYS IN EACH NOSTRIL EVERY DAY active Not Available Not Available No t Available sertraline 50 mg tablet TAKE 1 TABLET BY MOUTH EVERY DAY 01/28 completed Not Available Not Available Not Available naproxen 500 mg tablet TAKE 1 TABLET BY MOUTH TWICE DAILY 08/22 completed Not Available Not Available Not Available nortriptyli ne 50 mg capsule Take 1 capsule every day by oral route in the evening. 05/20 completed Not Available Not Available Not Available diazepam 5 mg tablet TAKE ONE TABLET BY MOUTH TWICE DAILY NEEDED FOR 7 DAYS 08/22 completed Not Available Not Available Not Available amoxicillin 500 mg-adan m clavulanate 125 mg tablet take 1 tablet by mouth every 12 hours 02/25 completed Not Available Not Available Not Available Ventolin HFA 90 mcg/actuati on aerosol inhaler INHALE 2 PUFFS BY MOUTH EVERY 4 HOURS NEEDED FOR WHEEZING 08/22 completed Not Available Not Available Not Available oxycodone 5 mg tablet TAKE 1 TABLET BY MOUTH EVERY 12 HOURS NEEDED FOR MAJOR SURGERY AND TRAUMA 10/05 completed Not Available Not Available Not Available cyclobenzap rine 5 mg tablet TAKE 1 TABLET BY MOUTH THREE TIMES DAILY FOR 14 DAYS 05/26 completed Not Available Not Available Not Available bupropion HCl XL 150 mg 24 hr tablet, extended release Take ONE tablet by MOUTH IN THE MORNING 10/05 completed Not Available Not Available Not Available duloxetine 30 mg capsule,del ayed release TAKE 1 CAPSULE BY MOUTH ONCE DAILY 10/05 completed Not Available Not Available Not Available GaviLyte-G 236 gram-22.74 gram-6.74 gram-5.86 gram oral solution TAKE DIRECTED 08/22 completed Not Available Not Available Not Available Thera M Plus (ferrous fumarate) 9 mg iron-400 mcg tablet 05/26 completed Not Available Not Available Not Available naloxone 4 mg/actuatio n nasal spray INSTILL 1 SPRAY INTO ONE NOSTRIL NEEDED FOR OPIOD REVERSE.M AY REPEAT EVERY 2 TO 3 MINUTES NEEDED ALTERNATI NG NOSTRILS. CALL 911 AFTER USE. 05/26 completed Not Available Not Available Not Available Vitals Date Recorded Body height Body mass index (BMI) Body weight Body temperature Provider Name and Address Organization Details Last Updated DateTime 08/22/2024 180.34 cm 30.7 kg/m2 82340.32 g 97.8 [degF] Kenroy Herminio [facility] & [place] 08/22/2024 09:48:33 Social History Question Answer Notes LastModified by Organizat ion Details LastModified Time Tobacco Smoking Status Current Every Day Smoker Fabiola daniel, JAREK Rachel [facility] & [place] 02/25/2022 13:14:03 Do You Have An Advance Directive? No [email or web address] Information not available 02/25/2022 What Is Your Level Of Alcohol Consumption? None [email or web address] Information not available 02/25/2022 Are You Blind Or Do You Have Difficulty Seeing? No Information not available 02/25/2022 What Is Your Level Of Caffeine Consumption? Heavy Pot Coffee/da y [email or web address] Information not available 10/05/2022 What Type Of Diet Are You Following? REGULAR [email or web address] Information not available 10/05/2022 What Was The Date Of Your Most Recent Tobacco Screening? 02/25/2022 [email or web address] Information not available 02/25/2022 Are You Passively Exposed To Smoke? Yes [email or web address] Information not available 02/25/2022 Do You Or Have You Ever Used Smokeless Tobacco? Currently Chews Tobacco Information not available 02/25/2022 How Much Tobacco Do You Smoke? 1 PPD [email or web address] Information not available 02/25/2022 Do You Feel Stressed (tense, Restless, Nervous, Or Anxious, Or Unable To Sleep At Night)? [id number] [email or web address] Information not available 02/25/2022 Do You Use Any Illicit Or Recreational Drugs? No [email or web address] Information not available 02/25/2022 How Many Years Have You Smoked Tobacco? 20 [email or web address] Information not available 02/25/2022 Sex: Unknown Functional Status Question Answer Note LastModified by Organization D etails LastModified Time What is your exercise level? None [email or web address] Information not available 10/05/2022 Mental Status None recorded. Family History Relationship Description Onset Age of this Age Resolved Age Notes LastModified by Organization Details LastModified Time Mother Acute stroke [email or web address] Not a vailable 10/05/2022 14:51:47 Mother Malignant tumor of colon [email or web address] Not available 09/2022 14:52:55 Father Myocardial infarction [email or web address] Not available 14:52:05 Medical History Condition Response Coronary Artery Disease N None N Gout N Colon Cancer N Kidney Stones N Hyperthyroidism N Hypothyroidism N Depression Y COPD N Osteoporosis/Osteopenia N Diverticulitis/Diverticulosis N Colon Polyps Y Spine Problems Y Diabetes N Anxiety Disorder Y Bleeding Disorder N Seizures/Epilepsy N Arthritis Y Tuberculosis N Hyperlipidemia N Cancer N Back Problems Y Stroke N Asthma Y Sleep Apnea N GERD/Reflux Y Hepatitis N Liver Disease N Cirrhosis N Heart Disease N Hypertension Y Kidney Disease N Past Encounters Encounter ID Performer Location Encounter Start Date Encounter Closed Date Diagnosis/Indication Diagnosis SNOMED-CT Code Diagnosis ICD10 Code Diagnosis Note [id number] RUPERT MACIEL [facility] [place] [address] 08/22/2024 09:20:48 08/22/2024 10:14:16 Conductive hearing loss, bilateral 232001122 H90.0 [id number] fEren Conn MD [facility] [place] [address] 08/22/2024 09:23:01 08/22/2024 10:15:28 Hearing loss 66517016 H91.8X9 Bilateral perforation of tympanic membranes 8386135012 973147 H72.93 Discontinu ity of ear ossicles 43710727 H74.20 Health Concerns Section Related Observation LastModified by Organization Detai ls LastModified Time None Recorded Concern Status LastModified by Organization Details LastModified Time None Recorded Payers Encounter Date Sequence Insurance Name Policy Number Policy Montiel Covered Member ID Montiel Member ID Guarantor Name 08/22/2024 1 [employer] (MEDICAID REPLACEMENT - HMO) Vince Gilman [id number] Vince Gilman Notes Date Note Type Note Provider Name and Address Organization Details Recorded Time 08/22/2024 text/html Patient presents for evaluation and management of hearing loss patient states hearing has progressively declined. Efren Conn MD [address] [place] [address],[address], [place], [address], [facility] 08/22/2024 10:54:20 08/22/2024 text/html Mr. Gilman was seen today for an audiologic evaluation due to long-standing, conductive hearing loss bilaterally. He currently has bilateral TM perforations per Dr. Efren Conn MD. He reports difficulty hearing well in all settings. Audiometric testing revealed a mild, conductive hearing loss bilaterally with good word rec scores. 1-Discussed findings with Ke Kalina and Dr. Conn. 2-F/u with Dr. Conn as planned. 3-Discussed hearing aids; he will consider. LINDA MARTIN, [facility] [address], [place], [address], [facility] - [place] - [place] & [place] 08/22/2024 10:16:55
--- OUTSIDE RECORDS SUMMARY | 2024-08-24 10:08 | XMS_ITS | Continuity of Care Document ---
Author Organization [place] - [facility] NEW Address [address] [place] [address] [address] [place] [address] Care Team Providers Care Broadcast Program Director Name Role Phone PRIMARY PLUS (FAMILY) Primary Care Provider [phone] Assessment No assessment recorded. Plan of Treatment Reminders Order Date Submit Date Provider Last Modified By Organization Details Last Modified Time Details Appointments None record ed. Lab None record ed. Referral None record ed. Procedures None record ed. Surgeries None record ed. Imaging None record ed. Medication Orders None record ed. Patient TargetsNo targets recorded. Patient InstructionsNo instructions recorded. Reason for Referral None Reported. Results Created Date Observation Date Name Description Value Unit Range Abnormal Flag Note LastModifiedBy Organization Detail LastModifiedTime 08/23/19 25 12/22/2021 MRI, brain , w/o contr ast No observ ation record ed. [email or web address] Not Available 08/22 09:23:13 08/23/19 25 12/21/2021 CT, tempo ral bone, w/o contr ast No observ ation record ed. Not Available 08/22 09:24:16 08/23/19 25 12/09/2021 audio gram No observ ation record ed. [email or web address] Not Available 08/22 09:25:04 08/23/19 25 08/22/2024 audio gram No observ ation record ed. Not Available 2024 10:16:51 Result Notes None recorded. Problems Name Problem SNOMED Code Status Onset Date Resolution Date Notes Provider Name and Address Organization Details Recorded Time Sensorineural hearing loss 92712927 Active 2024 LINDA MARTIN, AUD [address], [place], [address], [place] [facility] - [place] 5 10:14:51 Conductive hearing loss, bilateral 039652481 Active 2024 LINDA MARTIN, AUD [address], [place], [address], [place] [facility] [place] 5 10:16:24 Chronic back pain 486399729 Active 2021 Angela Florez null, [place] [facility] [place] 3 14:46:02 Asthma 499993963 Active Angela Florez null, [place] [facility] [place] 3 14:46:02 Gastroesophage al reflux disease 152092359 Active 2021 Angela Florez null, [place] [facility] [place] 3 14:46:02 Osteoarthritis of knee 166645896 Active 2021 Angela Florez null, [place] [facility] [place] 3 14:46:02 Drug abuse 21412756 Active 2021 Angela Florez null, [place] [facility] [place] 3 14:46:02 Chronic low back pain 013680010 Active 2022 Angela Florez null[place] [facility] [place] 3 14:46:02 Seasonal allergic rhinitis 628067555 Active 2022 Angela Florez null[place] [facility] [place] 3 14:46:02 Hypertensive disorder 85196834 Active 2021 Angela Florez null, [place] [facility] [place] 3 14:46:02 Cough 19514425 Active 2021 Angela Florez null, [place] [facility] [place] 3 14:46:02 Mastoiditis 35072729 Active 2021 Angela Florez null[place] [facility] [place] 3 14:46:02 Essential hypertension 52558994 Active 2022 JAREK Mann [facility] & [place] 3 14:46:02 Arthritis of lumbosacral spine 135600216 Active 2021 Angela daniel, JAREK Rachel [facility] - [place] 3 14:46:03 Gastroesophage al reflux disease without esophagitis 913500184 Active 2022 He Guzman MD [address] [place] [address],[address], [address] [facility] JAREK Rachel [facility] - [place] 3 15:31:45 Problem Notes None recorded. Procedures Surgical History Date Name Laterality Status Provider Name and Address Organization Details Recorded Time 06/03/19 23 Back Surgery completed Angela Rachel [facility] & [place] 10/05/2022 14:54:51 05/02/19 22 Appendectomy completed Fabiola Rachel [facility] - [place] 02/25/2022 13:14:03 05/02/19 21 Joint Replacement completed Fabiola Rachel [facility] - [place] 02/25/2022 13:14:03 Other completed Fabiola Rachel [employer] T - [place] 02/25/2022 13:14:03 ENT Surgery completed Fabiola Rachel L [facility]NT [facility] & [place] 02/25/2022 13:14:03 Imaging Results None recorded. Procedure [...] Available Not Available Not Available amoxicillin 500 mg-potassiu m clavulanate 125 mg tablet take 1 [...] Updated DateTime 08/22/2024 180.34 cm 30.7 kg/m2 46234.32 g 97.8 [degF] Kenroy GANDHI [facility] [place] 08/22/2024 09:48:33 Social History Question Answer Notes LastModified by Organizat ion Details LastModified Time Tobacco Smoking Status Current Every Day Smoker JAREK Herrera [facility] & [place] 02/25/2022 13:14:03 Do You Have An Advance Directive? No [email or web address] Information not available 02/25/2022 What Is Your Level Of Alcohol Consumption? None Information not available 02/25/2022 Are You Blind Or Do You Have Difficulty Seeing? No Information not available 02/25/2022 What Is Your Level Of Caffeine Consumption? Heavy Pot Coffee/da y [email or web address] Information not available 10/05/2022 What Type Of Diet Are You Following? REGULAR [email or web address] Information not available 10/05/2022 What Was The Date Of Your Most Recent Tobacco Screening? 02/25/2022 Information not available 02/25/2022 Are You Passively Exposed To Smoke? Yes [email or web address] Information not available 02/25/2022 Do You Or Have You Ever Used Smokeless Tobacco? Currently Chews Tobacco Information not available 02/25/2022 How Much Tobacco Do You Smoke? 1 PPD [email or web address] Information not available 02/25/2022 Do You Feel Stressed (tense, Restless, Nervous, Or Anxious, Or Unable To Sleep At Night)? [id number] [email or web address] Information not available 02/25/2022 Do You Use Any Illicit Or Recreational Drugs? No [email or web address] Information not available 02/25/2022 How Many Years Have You Smoked Tobacco? 20 [email or web address] Information not available 02/25/2022 Sex: Unknown Functional Status Question Answer Note LastModified by Organization D etails LastModified Time What is your exercise level? None [email or web address] Information not available 10/05/2022 Mental Status None recorded. Family History Relationship Description Onset Age of this Age Resolved Age Notes LastModified by Organization Details LastModified Time Mother Acute stroke [email or web address] Not a vailable 10/05/2022 14:51:47 Mother Malignant tumor of colon [email or web address] Not available 09/2022 14:52:55 Father Myocardial infarction [email or web address] Not available 14:52:05 Medical History Condition Response Coronary Artery Disease N None N Gout N Colon Cancer N Kidney Stones N Hyperthyroidism N Hypothyroidism N Depression Y COPD N Osteoporosis/Osteopenia N Diverticulitis/Diverticulosis N Colon Polyps Y Spine Problems Y Anxiety Disorder Y Diabetes N Bleeding Disorder N Arthritis Y Seizures/Epilepsy N Tuberculosis N Hyperlipidemia N Cancer N Back Problems Y Stroke N Asthma Y Sleep Apnea N GERD/Reflux Y Hepatitis N Cirrhosis N Liver Disease N Heart Disease N Hypertension Y Kidney Disease N Past Encounters Encounter ID Performer Location Encounter Start Date Encounter Closed Date Diagnosis/Indication Diagnosis SNOMED-CT Code Diagnosis ICD10 Code Diagnosis Note [id number] RUPERT MACIEL [address] [place] [address] 08/22/2024 09:20:48 08/22/2024 10:14:16 Conductive hearing loss, bilateral 194450053 H90.0 [id number] Efren Conn MD [facility] [place] [address] 08/22/2024 09:23:01 08/22/2024 10:15:28 Hearing loss 98129562 H91.8X9 Bilateral perforation of tympanic membranes 8486802343 442999 H72.93 Discontinu ity of ear ossicles 70488104 H74.20 Health Concerns Section Related Observation LastModified by Organization Detai ls LastModified Time None Recorded Concern Status LastModified by Organization Details LastModified Time None Recorded Payers Encounter Date Sequence Insurance Name Policy Number Policy Montiel Covered Member ID Montiel Member ID Guarantor Name 08/22/2024 1 [employer] (MEDICAID REPLACEMENT - HMO) Vince Gilman [id number] Vince Gilman Notes Date Note Type Note Provider Name and Address Organization Details Recorded Time 08/22/2024 text/html Patient presents for evaluation and management of hearing loss patient states hearing has progressively declined. Efren Conn MD [address] [place] [address],[address], [place], [address], [facility] 08/22/2024 10:54:20 08/22/2024 text/html Mr. Gilman was seen today for an audiologic evaluation due to long-standing, conductive hearing loss bilaterally. He currently has bilateral TM perforations per Dr. Efren Conn MD. He reports difficulty hearing well in all settings. Audiometric testing revealed a mild, conductive hearing loss bilaterally with good word rec scores. 1-Discussed findings with Mr. Gilman and Dr. Conn. 2-F/u with Dr. Conn as planned. 3-Discussed hearing aids; he will consider. RUPERT MACIEL [address] [facility],[address], [place], [address], [facility] - [facility] - [place] 08/22/2024 10:16:55
--- OUTSIDE RECORDS SUMMARY | 2024-08-24 10:08 | XMS_ITS | Continuity of Care Document ---
Author Organization [facility] TIM Phone Care Team Providers Care Public Transit Specialist Name Role Phone TREVA ROSADO Primary Attending TREVA ROSADO Admitting NO, FAMILY P Primary Care Unavailable TREVA ROSADO Unavailable ALLERGIES AND ADVERSE REACTIONS ALLERGIES AND ADVERSE REACTIONS Code System Allergy Substance Adverse Reaction Date Reaction (Severity) Comment Status Reported By Updated By [id number] RXNorm Morphine Adverse reaction to substance Swelling of legs active [id number] on July 04, 2024 3:35:30 AM UT MEDICATIONS HOME MEDICATIONS Status RXNORM NDC Medication Dose Route Frequency Dates Comments Reported By Updated By Active [facility] amlodipine oral 0.0 Last Dose: [id number] on July 04, 2024 3:35:06 AM UT Active [facility] omeprazole oral 0.0 Last Dose: [id number] on July 04, 2024 3:35:06 AM UT Active [facility] Valium oral 0.0 Last Dose: [id number] on July 04, 2024 3:35:06 AM UTC Active [facility] gabapentin oral 0.0 Last Dose: [id number] on July 04, 2024 3:35:06 AM UT DISCHARGE MEDICATIONS Status RXNORM NDC Medication Dose Route Frequency Dates Comments Physician Updated By No Discharge Medication Info rmation Available INPATIENT MEDICATIONS Status RXNORM NDC Medication Dose Route Frequency Rat e Quantity Dates Comments Physician Updated By Jonn [facility] [phone] HYDROmorpho ne (DILAUDID) 1 MG/ML SOLN 1.0 MG INTRAV ENOUS ONE TIME ONLY Start: July 04, 2024 3:39:0 0 AM UTC End: July 04, 2024 3:39:0 0 AM UT ALONZO Mcgill INTERFAC ED on July 04, 2024 3:38:00 AM UT SOCIAL HISTORY SOCIAL HISTORY SNOMED-CT Social History Element Description Effective Dates Offered Cessation Comment UpdatedBy [id number] Current Tobacco smoking status Light Tobacco Smoker [email or web address] on July 04, 2024 3:36:07 AM UT SOCIAL HISTORY - Gender Sex: Male SOCIAL HISTORY - Status : status i nformation is not available Intention in Next Year: intention information is not available SOCIAL HISTORY - Sexual Behavior Sexual Orientation Gender Identity SNOMED-CT Description SNO MED -CT Description Activity Level No of Partners Partner Type UpdatedBy Information is not available VITAL SIGNS PATIENT VITAL SIGNS This section displays the mo st recent value for each vital sign as of July 05, 2024 6:41:57 AM UT Loinc Code Vital Sign Activity Date Result Updated By 8302-2 Body height July 04, 2024 3:31:16 AM UT 180.34 cm (71.0 in) [id number] on July 04, 2024 3:31:16 [place] [address]-0 Body mass index (BMI ) [Ratio] July 04, 2024 3:31:16 AM UTC 31.363 kg/m2 [id number] on July 04, 2024 3:31:16 AM UT 3140-1 Body Surface Area Derived From Formula July 04, 2024 3:31:16 AM UT 2.2166 m2 [id number] on July 04, 2024 3:31:16 [place] [address]-6 Body weight Measured July 04 3:31:16 AM UTC 102.0 kg (225.0 lb) [id number] on July 04, 2024 3:31:16 AM UT 8867-4 Heart rate July 04, 2024 3:16:00 AM UT 103 /min [id number] on July 04, 2024 3:36:22 AM UT 8462-4 Diastolic blood pressure July 04, 2024 3:15:00 AM UTC 96.0 mm[Hg] [id number] on July 04, 2024 3:36:21 [place] [address]-4 Oxygen saturation in Arterial blood by Pulse oximetry July 04, 2024 3:16:00 AM UT 96.0 % [id number] on July 04, 2024 3:36:22 AM UT 9279-1 Respiratory rate July 04, 2024 2:58:00 AM UTC 18 /min [id number] on July 04, 2024 3:31:15 AM UT 8480-6 Systolic blood pressure July 04, 2024 3:15:00 AM UTC 163.0 mm[Hg] [id number] on July 04, 2024 3:36:21 AM UT PEDIATRIC GROWTH CHART - VITAL SIGNS This section displays Head C ircumference Percentile, Weight for Length Percentile and BMI Percentile Loinc Code Pediatric Measure Age (Months) Result Updat ed By No Pediatric Growth Chart Pe rcentile Information Available. HEALTH CONCERNS Problems Concern Status Health Concern problem infor mation not available. Smoking Status Status Years Used Consumed packs p er day Health Concern smoking histo ry information not available. Family History Concern Status Health Concern family histor y information not available. ENCOUNTERS ENCOUNTER INFORMATION Reason for Visit BACK PAIN Admission July 04, 2024 2:41:[place] [id number] Discharge July 04, 2024 3:50:00 AM UT DIS CHARGED TO HOME OR SELF CARE ENCOUNTER DIAGNOSES Notes information is not abdiel ilable. Code System Diagnosis Onset Date Diagnosis information is not available. ABSTRACT DIAGNOSES Code System Diagnosis Updated By M54.50 ICD10 LOW BACK PAIN, UNSPECIFIED D [id number] on July 05, 2024 6:41:08 AM [facility] M79.604 ICD10 PAIN IN RIGHT LEG [id number] on July 05, 2024 6:41:08 AM [facility] M79.605 ICD10 PAIN IN LEFT LEG [id number] on July 05, 2024 6:41:08 AM UT M54.16 ICD10 RADICULOPATHY, LUMBAR REGION [id number] on July 05, 2024 6:41:08 AM UT G89.29 ICD10 OTHER CHRONIC PAIN [id number] o n July 05, 2024 6:41:08 AM UT I10 ICD10 ESSENTIAL (PRIMARY) HYPERTEN MANNY [id number] on July 05, 2024 6:41:08 AM UT Z88.5 ICD10 ALLERGY STATUS TO NARCOTIC A GENT [id number] on July 05, 2024 6:41:08 AM UT F17.210 ICD10 NICOTINE DEPENDE NCE, CIGARETTES, UNCOMPLICATED [id number] on July 05, 2024 6:41:08 AM UT Z79.899 ICD10 OTHER GRAVE CLEANER (CURRENT) DR MONTALVO THERAPY [id number] on July 05, 2024 6:41:08 AM UT CARE TEAM Care Public Transit Specialist Role TREVA ROSADO Primary Attending TREVA ROSADO Admitting FAMILY NO Primary Care TREVA ROSADO Referring CARE TEAM CARE burn out tender lace Role on Team Status Start Date End Date Update d By ALONZO Mcgill APRN Referring normal July 04, 2024 3:39:35 AM UTC July 04, 2024 3:50:00 AM UT [id number] on July 04, 2024 3:39:35 AM UTC ALONZO Mcgill APRN Attending normal July 04, 2024 3:39:35 AM UTC July 04, 2024 3:50:00 AM UT [id number] on July 04, 2024 3:39:35 AM UTC ALONZO Mcgill APRN Admitting normal July 04, 2024 3:39:35 AM UTC July 04, 2024 3:50:00 AM UT [id number] on July 04, 2024 3:39:35 AM [facility] NO FAMILY PHYSICIAN PCP normal July 04, 2024 2:41:57 AM UTC July 04, 2024 3:50:00 AM UTC [id number] on July 04, 2024 3:39:35 AM UT
--- OUTSIDE RECORDS SUMMARY | 2024-08-24 10:08 | XMS_ITS | Data Portability ---
Author Organization [facility] Address [address] [place] [address] Care Team Providers Care Digital Media Associate Name Role Phone PRIMARY PLUS (FAMILY) Primary Care Provider Assessment No assessment recorded. Plan of Treatment Reminders Order Date Submit Date Provider Last Modified By Organization Details Last Modified Time Details Appointments None recorded. Lab None recorded. Referral None recorded. Procedures colonoscopy procedure (PROC) - PHYSICIAN ORDERS1. Ensure patient is NPO and bowel prep complete.0. 9% normal saline @kvo preferably in right arm; IV patent to gravity.3. Verify consent. Colonoscopy with possible biopsy with possible polypectomy .4. On-Call to Endoscopy.5 . If prep not clear, give large volume enema and report results.6. Draw pt/inr if patient on Coumadin Hold 2022 023 [facility] [address] [facility] (Outpatient Surgery), [address] [place] [address] [place], [address], 3 09:28:47 esophagogas troduodenos copy with biopsy (PROC) - PHYSICIAN ORDERS1. Ensure patient is NPO.0.9% normal saline @kvo preferably in right arm; IV patent to gravity.3. verify consent. EGD with possible biopsy with possible dilation.4. On-Call to Endoscopy.5 . Draw pt/inr if patient on Coumadin Hold 2022 023 [email or web address] [address] [place] [address] [place], [address], 3 07:28:33 Surgeries None recorded. Imaging None recorded. Medication Orders Golytely 236 gram-22.74 gram-6.74 gram-5.86 gram oral solution 2022 023 [email or web address] 1 [facility] [place], [address], 5 09:51:11 Bactrim DS 800 mg-160 mg tablet 2021 022 [email or web address] [facility] [address] [place], [address], 15:20:57 ibuprofen 800 mg tablet 2021 022 [email or web address] 451 [facility] [place], [address], 14:49:23 Patient TargetsNo targets recorded. Patient Instructions Encounter Date Encounter Id Patient Instructions Last Modified By Organization Details Last Modified Time 02/25/2022 [id number] Follow-up in 3 weeks Keep the area covered with a light dressing to absorb drainage and change p.r.n. He can shower or do Sitz baths after bowel movements. I applied an Aquacel foam dressing over the area today. corrina Not available 02/25/2022 13:38:36 Patient seen by physician chiropractic assistant. I have reviewed the patient's medical record, the medical decision making and treatment plan. corrina Not available 02/25/2022 13:37:58 03/17/2022 [id number] I applied PolyMe m Silver under tape and they can change this daily Return if the wound has not resolved in 2-3 weeks. corrina Not available 03/17/2022 10:29:45 Patient seen by physician chiropractic assistant. I have reviewed the patient's medical record, the medical decision making and treatment plan. corrina Not available 03/17/2022 10:29:48 10/05/2022 [id number] The indications, technique, alternatives, and potential risks and complications of planned procedure were discussed with the patient including, but not limited to bleeding, perforation, missed lesions, and anesthesia complications. The patient understands and wishes to proceed and has given informed consent. Written information provided to the patient. [email or web address] Not available 10/05/2022 15:36:01 08/22/2024 [id number] I have personall y reviewed the data obtained and entered from the scribe, emergency medical dispatcher or nurse for this patient for this [...] observ ation record ed. Not Available 08/22 09:23:13 08/23/19 25 12/21/2021 CT, tempo ral bone, w/o contr ast No observ ation record ed. [email or web address] Not Available 08/22 09:24:16 08/23/19 25 12/09/2021 audio gram No observ ation record ed. [email or web address] Not Available 08/22 09:25:04 08/23/19 25 08/22/2024 audio gram No observ ation record ed. [email or web address] Not Available 2024 10:16:51 Result Notes None recorded. Problems Name Problem SNOMED Code Status Onset Date Resolution Date Notes Provider Name and Address Organization Details Recorded Time Sensorineural hearing loss 27711900 Active 2024 LINDA MARTIN, [employer] [address], [place], [address], [facility] - [facility] & [place] 5 10:14:51 Conductive hearing loss, bilateral 563773226 Active 2024 LINDA MARTIN, [employer] [address], [place], [address], [facility] - [facility] - [place] & [place] 5 10:16:24 Chronic back pain 828267747 Active 2021 Angela daniel, [place] - [place] - [place] & [place] 3 14:46:02 Asthma 143133065 Active Angela daniel, [place] - [place] - [place] & [place] 3 14:46:02 Gastroesophage al reflux disease 413482897 Active 2021 Angela daniel[place] & [place] 3 14:46:02 Osteoarthritis of knee 499751908 Active 2021 [place] 3 14:46:02 Drug abuse 92099909 Active 2021 [place]iel[place] 3 14:46:02 Chronic low back pain 314505533 Active 2022 Angela daniel[place] 3 14:46:02 Seasonal allergic rhinitis 418998427 Active 2022 [place]iel[place] 3 14:46:02 Hypertensive disorder 70157881 Active 2021 [place]iel[place] 3 14:46:02 Cough 09131911 Active 2021 Angela daniel[place] - [place] & [place] 3 14:46:02 Mastoiditis 50398636 Active 2021 [place] 3 14:46:02 Essential hypertension 67837809 Active 2022 Angela daniel[place] - [place] 3 14:46:02 Arthritis of lumbosacral spine 975368490 Active 2021 Angela daniel[place] 3 14:46:03 Gastroesophage al reflux disease without esophagitis 654386055 Active 2022 He Guzman MD [address] [place] [address],[address], [address] [facility] [place] - [facility] - [place] & [place] 15:31:45 Problem Notes None recorded. Procedures Surgical History Date Name Laterality Status Provider Name and Address Organization Details Recorded Time 06/03/19 23 Back Surgery completed Angela TILLEY - [facility] - [place] & [place] 10/05/2022 14:54:51 05/02/19 22 Appendectomy completed Fabiola TILLEY - [facility] - [place] & [place] 02/25/2022 13:14:03 05/02/19 21 Joint Replacement completed Fabiola TILLEY - LPNT - [place] & [place] 02/25/2022 13:14:03 Other completed Fabiola TILLEY - FAMILY NURSE T - [place] & [place] 02/25/2022 13:14:03 ENT Surgery completed Fabiola TILLEY - L PNT - [place] & [place] 02/25/2022 13:14:03 Imaging Results Imaging Date Name Status LastModified by Organiz ation Details LastModified Time 12/22/2021 MRI, brain, w/o contrast completed [email or web address] Information not available 08/22/2024 09:23:13 12/21/2021 CT, temporal bone, w/o contrast completed [email or web address] Information not available 08/22/2024 09:24:16 12/09/2021 audiogram completed [email or web address] Information no t available 08/22/2024 09:25:04 08/22/2024 audiogram completed [email or web address] Information no t available 08/22/2024 10:16:51 Procedure Notes None recorded. Medical Equipment None [...] mass index (BMI) Body weight Body temperature Respiratory rate Heart rate Systolic blood pressure Diastolic blood pressure Provider Name and Address Organization Details Last Updated DateTime 3 180.34 cm 30.7 kg/m2 05964.6 g 97.6 [degF] 16 /min 92 /min 152 mm[Hg] 100 mm[Hg] Angela Florez [place] - [facility] - [place] & [place] 3 14:46:53 Date Recorded Body height Body mass index (BMI) Body weight Heart rate Oxygen saturation Oxygen saturation in Arterial blood by Pulse oximetry Body temperature Systolic blood pressure Diastolic blood pressure Provider Name and Address Organization Details Last Updated DateTime 180.34 cm 30.8 kg/m2 235805. 2 g 98 /min 95 % 95 % 98.2 [degF] 121 mm[Hg] 86 mm[Hg] Fabiola TILLEY [facility] & [place] 13:23:35 Date Recorded Body height Provider Name an d Address Organization Details Last Updated DateTime 03/17/2022 180.34 cm Tammie Driscoll [facility] & [place] 03/17/2022 10:19:00 Date Recorded Body height Body mass index (BMI) Body weight Body temperature Provider Name and Address Organization Details Last Updated DateTime 08/22/2024 180.34 cm 30.7 kg/m2 64021.32 g 97.8 [degF] Kenroy Herminio [facility] & [place] 08/22/2024 09:48:33 Social History Question Answer Notes LastModified by Organizat ion Details LastModified Time Tobacco Smoking Status Current Every Day Smoker Fabiola Grimm [facility] & [place] 02/25/2022 13:14:03 Do You Have An Advance Directive? No [email or web address] Information not available 02/25/2022 What Is Your Level Of Alcohol Consumption? None [email or web address] Information not available 02/25/2022 Are You Blind Or Do You Have Difficulty Seeing? No [email or web address] Information not available 02/25/2022 What Is Your Level Of Caffeine Consumption? Heavy Pot Coffee/da y [email or web address] Information not available 10/05/2022 What Type Of Diet Are You Following? REGULAR [email or web address] Information not available 10/05/2022 What Was The Date Of Your Most Recent Tobacco Screening? 02/25/2022 Information not available 02/25/2022 Are You Passively Exposed To Smoke? Yes Information not available 02/25/2022 Do You Or Have You Ever Used Smokeless Tobacco? Currently Chews Tobacco [email or web address] Information not available 02/25/2022 How Much Tobacco Do You Smoke? 1 PPD [email or web address] Information not available 02/25/2022 Do You Feel Stressed (tense, Restless, Nervous, Or Anxious, Or Unable To Sleep At Night)? [id number] [email or web address] Information not available 02/25/2022 Do You Use Any Illicit Or Recreational Drugs? No [email or web address] Information not available 02/25/2022 How Many Years Have You Smoked Tobacco? 20 [email or web address] Information not available 02/25/2022 Sex: Unknown Functional Status Question Answer Note LastModified by Organization D etails LastModified Time What is your exercise level? None [email or web address] Information not available 10/05/2022 Mental Status None recorded. Family History Relationship Description Onset Age of this Age Resolved Age Notes LastModified by Organization Details LastModified Time Mother Acute stroke [email or web address] Not a vailable 10/05/2022 14:51:47 Mother Malignant tumor of colon [email or web address] Not available 09/2022 14:52:55 Father Myocardial infarction [email or web address] Not available 14:52:05 Medical History Condition Response Coronary Artery Disease N Gout N None N Colon Cancer N Kidney Stones N Hyperthyroidism N Depression Y COPD N Hypothyroidism N Diverticulitis/Diverticulosis N Spine Problems Y Anxiety Disorder Y Arthritis Y Cancer N Stroke N Liver Disease N Kidney Disease N Osteoporosis/Osteopenia N Colon Polyps Y Diabetes N Bleeding Disorder N Seizures/Epilepsy N Tuberculosis N Hyperlipidemia N Back Problems Y Asthma Y Sleep Apnea N GERD/Reflux Y Hepatitis N Cirrhosis N Heart Disease N Hypertension Y Past Encounters Encounter ID Performer Location Encounter Start Date Encounter Closed Date Diagnosis/Indication Diagnosis SNOMED-CT Code Diagnosis ICD10 Code Diagnosis Note [id number] FEDERICO Hernandez [facility] [address] [place] [address] 02/25/2022 13:01:16 02/25/2022 13:34:18 Perirectal abscess 90022447 K61.1 Postoperative visit 1836 48289 Z09 S/P I and D of perirectal abscess 02/07/2022 . [id number] FEDERICO Hernandez [facility] [address] [place] [address] 03/17/2022 10:13:44 03/17/2022 10:26:43 Postoperative visit 954714812 Z09 S/P I and D of perirectal abscess 02/07/2022 . [id number] MD FRANKLIN Ramires [facility] [address] [place] [address] [address] [place] [address] 10/05/2022 14:13:18 10/05/2022 15:40:39 History of polyp of colon 298169201 Z86.010 History of colonic polyps, per history, records not available. Given family history feel will be best to proceed with colonoscop y without those records. Schedule at this time. Gastroesop hageal reflux disease without esophagitis 280081604 K21.9 Gastroesop hageal reflux disease, refractory to a H2 markel and PPI therapy, schedule EGD for evaluation . [id number] RUPERT MACIEL [address] GONZALEZ [address] [place] [address] 8 08/22/2024 09:20:48 08/22/2024 10:14:16 Conductive hearing loss, bilateral 802660985 H90.0 [id number] Efren Conn MD [address] GONZALEZ [address] [place] [address] 8 08/22/2024 09:23:01 08/22/2024 10:15:28 Hearing loss 12597458 H91.8X9 Bilateral perforation of tympanic membranes 1475297375 974057 H72.93 Discontinu ity of ear ossicles 82966437 H74.20 Health Concerns Section Related Observation LastModified by Organization Detai ls LastModified Time None Recorded Concern Status LastModified by Organization Details LastModified Time None Recorded Advance Directives Directive N: Payers Encounter Date Sequence Insurance Name Policy Number Policy Montiel Covered Member ID Montiel Member ID Guarantor Name 02/25/2022 1 PASSPORT BY [employer] (MEDICAID REPLACEMENT - HMO) Vince Mcgill Schimpf [id number] Vince Schimpf 03/17/2022 1 PASSPORT BY [employer] (MEDICAID REPLACEMENT - HMO) Vince Mcgill Schimpf [id number] Vince Schimpf 10/05/2022 1 PASSPORT BY [facility] (MEDICAID REPLACEMENT - HMO) Vince Mcgill Schimpf [id number] Vince Schimpf 08/22/2024 1 PASSPORT BY [employer] (MEDICAID REPLACEMENT - O) Vince Mcgill Schimpf [id number] Vince [facility] 08/22/2024 1 [facility] ([facility] - [facility]) Vince Mcgill [facility] [id number] Vince [facility] Notes Date Note Type Note Provider Name and Address Organization Details Recorded Time 02/25/2022 text/html Miguel Angel is in the office today for postop check. He had an incision and drainage of a perirectal abscess 02/07/2022. the wound was packed at the time of surgery however when discharge from the hospital he was instructed to leave it open and just apply dressings to catch drainage. He still is having some significant discomfort but denies any fevers or chills. He is awaiting total knee arthroplasty and low back surgery when this area heals. FEDERICO Hernandez [address] [place] [address],[address], [place], [address], [facility] & [place] 02/25/2022 13:39:02 03/17/2022 text/html Miguel Angel is in the office today for postop check. He had an incision and drainage of a perirectal abscess 02/07/2022. His is been applying a dressing on a daily basis. His pain has decreased markedly and he wishes to return to physical therapy For his back pain. FEDERICO Hernandez [address] [place] [address],[address], [place], [address], [facility] & [place] 03/17/2022 10:30:15 10/05/2022 text/html this is a 42-yea r-old male who reports a long history of gastroesophageal reflux disease. Patient in the past notes that it was easier to control but recently been poorly controlled despite omeprazole and augmenting this with an H2 markel. It occurs both Postprandially and when the patient lies down. He denies any dysphagia. the patient also reports that he has a history of colonic polyps, removed 10 years ago thinks he was supposed to come back in a year. Notes he also has a family history of colon cancer. He Guzman MD [address] [place] [address],[address], [place], [address], [facility] & [place] 10/05/2022 15:36:37 08/22/2024 text/html Patient presents for evaluation and management of hearing loss patient states hearing has progressively declined. Efren Conn MD [address] [place] [address],[address], [place], [address], [facility] & [place] 08/22/2024 10:54:20 08/22/2024 text/html Mr. Gilman was [...] hearing aids; he will consider. RUPERT MACIEL [address] [place] [address],[address], [place], [address], [facility] & [place] 08/22/2024 10:16:55
--- NOTE | 2024-08-24 10:11 | P.HP_ITS ---
History of Present Illness *Admission Date: 08/24/24 *Reason for visit:: Intrathecal refill; DDD *History of present illness: Degenerative disc disease [facility] Disclaimer: The information contained in this section may have been updated after the patient was seen, as this information can be updated by other users. Medical History Asthma DDD (degenerative disc disease), lumbar GERD (gastroesophageal reflux disease) HTN (hypertension) Surgical History H/O knee surgery H/O lumbar discectomy H/O shoulder surgery History of appendectomy History of placement of ear tubes Hx of resection of small bowel Family History Other Colon cancer Family history of diabetes mellitus type II Family history of myocardial infarction Family history of stroke Social History Smoking Status: Former smoker tobacco type: cigarettes packs per day: 1 alcohol intake: never substance use type: denies use current occupational status: other Travel in the last 8 weeks: None household members: significant other housing: house lives independently: Yes marital status: single education level: college service: No caffeine: Yes special vimal needs: No agree to transfusion: No do you feel safe at home: Yes victim of physical abuse: No victim of emotional abuse: No victim of sexual abuse: No would you like helpful sources: No Have you lived/traveled outside US in past 30 days?: No Contact w/someone who lives/traveled outside US past 30 days?: No Exposure to someone with infectious disease in past 14 days?: No Do you have a fever (greater than 100.4 F or 38 C)?: No Have you tested positive for COVID-19: No Exposed to someone with COVID-19 in past 14 days?: No Do you have a sore throat?: No Do you have a cough?: No Do you have any weakness?: No Do you have any diarrhea?: No Are you experiencing any unusual bleeding?: No Do you have any muscle aches/pain?: No Do you have any abdominal pain?: No Are you experiencing loss of taste or smell?: No Other Medical History Have you received the Flu Vaccine for this season: No Have you received the Pneumonia Vaccine: No Review of Systems Review of Systems Review of systems:: pertinent systems reviewed and negative unless documented below Review of systems (narrative): Review of Systems: General: No recent weight changes, no fever, no sleep disturbances Respiratory: No cough, no shortness of air, no recurring pulmonary infections Cardiovascular/peripheral vascular: No chest pain, no palpitations, no edema, no shortness of breath Gastrointestinal: No new onset incontinence, normal bowel movements reported Genitourinary: No new onset incontinence Musculoskeletal: Chronic back pain Psychiatric: [Normal mood/affect] Neurological: [Denies weakness in extremities], [denies balance issues] Constitutional Constitutional: Reports system reviewed and no additional complaints, except as documented Meds Home Medications and Allergies Home Medications ?Medication ?Instructions ?Recorded ?Confirmed ?Type amlodipine 10 mg tablet 10 mg PO DAILY BLOOD PRESSURE 07/30/22 07/16/24 History omeprazole 40 mg capsule,delayed 40 mg PO DAILY GERD 07/30/22 07/16/24 History release diazepam 5 mg tablet 5 mg PO BID Anxiety 01/12/23 07/16/24 History paroxetine HCl 30 mg tablet 30 mg PO DAILY mood 01/12/23 07/16/24 History lidocaine 5 % topical patch 1 patch topical DAILY #30 ea 06/22/23 07/16/24 Rx naproxen 500 mg tablet 500 mg PO BID Pain #60 tabs 06/22/23 07/16/24 Rx fentanyl (PF) 5 mcg/mL in 0.9 % 250 mcg epidural CONT Pain 07/27/23 07/16/24 History sodium chloride intravenous New Prescriptions to Start Prescriptions: Allergies Allergy/AdvReac Type Severity Reaction Status Date / Time No Known Allergies Allergy Verified 06/29/24 10:01 Exam Constitutional Constitutional: no acute distress *Routine HEENT Exam Head: Present normocephalic and atraumatic Eye: Present PERRL ENT: Present mucous membranes moist *Routine Neck Exam Neck: Present supple *Routine Respiratory Exam Respiratory: Present CTA bilaterally *Routine Cardiovascular Exam Cardiovascular: Present RRR *Routine Abdominal Exam Abdominal: Present soft *Routine Rectal Exam Rectal:: deferred *Routine Genitalia Exam Genitalia:: normal male *Routine Skin Exam Skin: Present intact *Routine Neurological Exam Neurological: Present alert and oriented X3 Assessment and Plan *Assessment and plan (1) Degenerative disc disease, lumbar: Status: Acute Category: Medical Code(s): M51.369 - Other intervertebral disc degeneration, lumbar region without mention of lumbar back pain or lower extremity pain (2) Low back pain: Status: Acute Category: Medical Code(s): M54.50 - Low back pain, unspecified Plan Patient has been instructed to contact the clinic with any concerns before the next appointment. Dr. Ceron has reviewed this note and agrees with this plan of care. This note was dictated using voice recognition software and make contain errors or omissions. All injections are used with Lidocaine, Bupivacaine and dexamethasone. Occasionally urine drug screen is needed to verify patient's compliance with our office pain contract. This is ordered based off specific treatments related to chronic pain with the potential to abuse certain medications.
[2024-08-24 10:21] VITALS: BP 152/81; PULSE 95; RESP 16; O2SAT 99; BMI 30.7
--- NOTE | 2024-08-24 10:26 | EXP.PAIN.PRO ---
Procedure Date: 08/24/24 Time: 10:49 Anesthesiologist:: Vivien Dobbs APRN Complications:: None Pre-procedure Diagnosis:: Degenerative disc disease of lumbar spine with lumbar radiculopathy symptoms, chronic pain syndrome Post-procedure Diagnosis:: Same Indications for Procedure:: Patient is a pleasant 44-year-old male who presents today for intrathecal refill and reprogram. Today he rates his pain a 9 out of 10. He denies any new trauma or injury. He does state that he is still having severe pain in his low back as what we had discussed at his last visit. He states that he ended up having to cancel his SI injections due to having an issue with probate court. Patient does state that he did end up getting the advanced MRI and does believe he has the disc with him today. He states that he ended up seeing a neurosurgeon that he originally had his first back surgery with and they were stating that he had more severe narrowing of the lower lumbar spine. He does state that that provider did agree that he may benefit from SI injections as well as possible epidurals where there was more severe narrowing. Patient does state that he is still very much interested in additional injection but does want to see how he ends up feeling over the next week or so before deciding whether or not to proceed forward with rescheduling this injections. He does state the pain interferes with his ability to perform activities of daily living such as cooking and cleaning. Patient is currently managed with intrathecal fentanyl 500 mcg/mL with a daily dose of 73.94 mcg/day. He denies any side effects. He is requesting an increase today. Physical Exam: General: Alert and oriented x3, no acute distress, pleasant and cooperative Lungs: Respirations even and unlabored, symmetrical chest expansion Eyes: PERRL Musculoskeletal: Flexion and extension of lumbar [spine] somewhat guarded secondary to pain, [antalgic gait noted] point tenderness along bilateral SIs with positive bilateral Debbie's, Alesia's, Gaenslen's, compression and distraction exam Neurological: Speech clear, no gross sensory deficit Procedure Details:: Informed consent was obtained and the risk and benefits of the procedure were explained to the patient. The patient had noninvasive monitoring placed including noninvasive blood pressure cuff and pulse oximeter. Patient's pump was interrogated. The area over the pump was cleansed with chlorhexidine as a cleansing solution. In sterile fashion the pump was accessed with a 22-gauge needle. Approximately 3.1 mls of the pump solution was removed and discarded appropriately. The pump was then refilled with 20 mL's of fentanyl 500 mcg/mL. The needle was withdrawn and a bandage was placed over the puncture site. The infusion rate was reprogrammed and increased to 88.84 mcg/day. The patient tolerated well with no complication. Plan and Disposition:: Patient tolerated the procedure well with no complications and was discharged neurologically intact. I did review over with the patient that we will review over the disc once radiology gets it uploaded into the computer. I do believe he would still very much benefit from SI injections as well as possible epidural of the lower lumbar spine. We will wait to hear from this patient later going into next week if he would like to proceed forward with additional injection therapy. Patient agrees with this plan of care. Patient will return to clinic on or before their next intrathecal refill date. We will see the patient back in the clinic at the next intrathecal refill. Patient has been instructed to contact the clinic with any concerns before the next appointment. Dr. Ceron has reviewed this note and agrees with this plan of care. This note was dictated using voice recognition software and make contain errors or omissions. -- It Is medically necessary for this patient to continue to have their intrathecal pump refilled at regular intervals. This patient had an intrathecal pain pump implanted after meeting criteria of chronic intractable pain for greater than 3 months and failing conservative treatments. Patient has committed and been compliant to the treatment plan and all planned follow up care. Since implantation of the intrathecal pain pump, the patient has had decreased pain and been more functional. Oral medications have been reduced including intake of oral opioids. Patient continues to do well with intrathecal therapy with decrease in pain symptoms and increase in functional status. Stopping intrathecal medications can lead to life threatening withdrawal, seizures, cardiac arrest, severe pain, and possible . Pumps that are not refilled at regular intervals can be damages and cause and need for replacement. We continually titrate dose and concentration to optimize pain relief and function. We are limited in concentration for certain drugs to safely deliver medications through the pump and stay within the recommendations from the Polyanalgesic Consensus Committee Guidelines. Depending on dose and concentration these pumps may need to be refilled sooner than 3 months as we titrate. A UDS is needed to verify patient's compliance with our office pain contract. This is ordered based off specific treatments related to chronic pain with the potential to abuse certain medications.
[2024-08-24 10:44] VITALS: BP 152/81; PULSE 95; RESP 18; O2SAT 99
[2024-08-24 10:45] VITALS: BP 152/81; PULSE 95; RESP 18; O2SAT 99
[2024-08-24 11:03] VITALS: BP 157/95; PULSE 82; RESP 16; O2SAT 95
== END 2024-08-24 11:09 | disposition home or self-care (01) ==
PROVIDERS: Visit Provider Nurse Practitioner Family
DX: M51.16 Intervertebral disc disorders with radiculopathy, lumbar region (principal); G89.4 Chronic pain syndrome; Z73.89 Other problems related to life management difficulty
CPT/HCPCS: 62370; 99212; 99221; G0463

== ENCOUNTER 2024-09-10 10:27 | Outpatient (POV) | payer MEDICAID, SELFPAY ==
--- OUTSIDE RECORDS SUMMARY | 2024-09-10 10:31 | XMS_ITS | Data Portability ---
Author Organization [facility] Address [address] [place] [address] Care Team Providers Care Turning Machine Set Up Operator Name Role Phone PRIMARY PLUS (FAMILY) Primary Care Provider [phone] Assessment No assessment recorded. Plan of Treatment [...] if patient on Coumadin Hold 2022 023 [facility] [address] [place] (Out[facility]), [address] [place] [address] [place], [address], 3 09:28:47 esophagogas troduodenos copy with biopsy (PROC) - PHYSICIAN ORDERS1. Ensure patient is NPO.0.9% normal saline @kvo preferably in right arm; IV patent to gravity.3. verify consent. EGD with possible biopsy with possible dilation.4. On-Call to Endoscopy.5 . Draw pt/inr if patient on Coumadin Hold 2022 023 [email or web address] [place] (Out[facility]), [address] [place] [address] [place], [address], 3 07:28:33 Surgeries None recorded. Imaging None recorded. Medication Orders Golytely 236 gram-22.74 gram-6.74 gram-5.86 gram oral solution 2022 023 [email or web address] 1 [facility] [place], [address], 5 09:51:11 Bactrim DS 800 mg-160 mg tablet 2021 022 [email or web address] [facility] [address] [place], [address], 15:20:57 ibuprofen 800 mg tablet 2021 022 [email or web address] 451 [facility] [address] [place], [address], 14:49:23 Patient TargetsNo targets recorded. Patient Instructions Encounter Date Encounter Id Patient Instructions Last Modified By Organization Details Last Modified Time 02/25/2022 [id number] Follow-up in 3 weeks Keep the area covered with a light dressing to absorb drainage and change p.r.n. He can shower or do Sitz baths after bowel movements. I applied an Aquacel foam dressing over the area today. [email or web address] Not available 02/25/2022 13:38:36 Patient seen by physician pediatric dental assistant. I have reviewed the patient's medical record, the medical decision making and treatment plan. corrina Not available 02/25/2022 13:37:58 03/17/2022 [id number] I applied PolyMe m Silver under tape and they can change this daily Return if the wound has not resolved in 2-3 weeks. [email or web address] Not available 03/17/2022 10:29:45 Patient seen by physician pediatric dental assistant. I have reviewed the patient's medical record, the medical decision making and treatment plan. corrina Not available 03/17/2022 10:29:48 10/05/2022 [id number] The indications, technique, alternatives, and potential risks and complications of planned procedure were discussed with the patient including, but not limited to bleeding, perforation, missed lesions, and anesthesia complications. The patient understands and wishes to proceed and has given informed consent. Written information provided to the patient. [email or web address] Not available 10/05/2022 15:36:01 08/22/2024 [id number] I have personall y reviewed the data obtained and entered from the scribe, medical affairs manager or nurse for this patient for this [...] contr ast No observ ation record ed. [email or web address] Not Available 08/22 09:23:13 08/23/19 25 12/21/2021 CT, tempo ral bone, w/o contr ast No observ ation record ed. [email or web address] Not Available 08/22 09:24:16 08/23/19 25 12/09/2021 audio gram No observ ation record ed. [email or web address] Not Available 08/22 09:25:04 08/23/19 25 08/22/2024 audio gram No observ ation record ed. Not Available 2024 10:16:51 Result Notes None recorded. Problems Name Problem SNOMED Code Status Onset Date Resolution Date Notes Provider Name and Address Organization Details Recorded Time Sensorineural hearing loss 85161288 Active 2024 LINDA MARTIN, [employer] [address], [place], [address], [facility] - [facility] & [place] 5 10:14:51 Conductive hearing loss, bilateral 977494453 Active 2024 LINDA MARTIN, [employer] [address], [place], [address], [facility] - [facility] - [place] & [place] 5 10:16:24 Chronic back pain 922766167 Active 2021 Angela daniel, [place] 3 14:46:02 Asthma 310952629 Active Angela daniel, [place] - [place] - [place] & [place] 3 14:46:02 Gastroesophage al reflux disease 668023129 Active 2021 Angela daniel, [place] 3 14:46:02 Osteoarthritis of knee 288447710 Active 2021 Angela daniel, [place] - [place] - [place] & [place] 3 14:46:02 Drug abuse 25029456 Active 2021 Angela daniel[place] 3 14:46:02 Chronic low back pain 967460864 Active 2022 Angela daniel[place] 3 14:46:02 Seasonal allergic rhinitis 519509047 Active 2022 Angela daniel[place] 3 14:46:02 Hypertensive disorder 66158093 Active 2021 Angela daniel[place] 3 14:46:02 Cough 77518424 Active 2021 Angela daniel, [place] - [place] - [place] & [place] 3 14:46:02 Mastoiditis 34695707 Active 2021 Angela daniel[place] 3 14:46:02 Essential hypertension 14346082 Active 2022 Angela daniel[place] - [place] - [place] & [place] 3 14:46:02 Arthritis of lumbosacral spine 323024444 Active 2021 Angela daniel[place] - [place] - [place] & [place] 3 14:46:03 Gastroesophage al reflux disease without esophagitis 065363055 Active 2022 He Guzman MD [address] [place] [address],[address], [address] [facility] [place] - [place] - [place] & [place] 15:31:45 Problem Notes None recorded. Procedures Surgical History Date Name Laterality Status Provider Name and Address Organization Details Recorded Time 06/03/19 23 Back Surgery completed Angela TILLEY - [facility] - [place] & [place] 10/05/2022 14:54:51 05/02/19 22 Appendectomy completed Fabiola TILLEY - [facility] - [place] & [place] 02/25/2022 13:14:03 05/02/19 21 Joint Replacement completed Fabiola TILLEY - [facility] - [place] & [place] 02/25/2022 13:14:03 Other completed Fabiola TILLEY - [employer] T - [place] & [place] 02/25/2022 13:14:03 ENT Surgery completed Fabiola TILLEY - L PNT - [place] & [place] 02/25/2022 13:14:03 Imaging Results Imaging Date Name Status LastModified by Organiz ation Details LastModified Time 12/22/2021 MRI, brain, w/o contrast completed [email or web address] Information not available 08/22/2024 09:23:13 12/21/2021 CT, temporal bone, w/o contrast completed [email or web address] Information not available 08/22/2024 09:24:16 12/09/2021 audiogram completed Information no t available 08/22/2024 09:25:04 08/22/2024 audiogram completed [email or web address] Information no t available 08/22/2024 10:16:51 Procedure [...] Updated DateTime 3 180.34 cm 30.7 kg/m2 44222.6 g 97.6 [degF] 16 /min 92 /min 152 mm[Hg] 100 mm[Hg] Angela Florez [place] - [facility] - [place] & [place] 3 14:46:53 Date Recorded Body height Body mass index (BMI) Body weight Heart rate Oxygen saturation Oxygen saturation in Arterial blood by Pulse oximetry Body temperature Systolic blood pressure Diastolic blood pressure Provider Name and Address Organization Details Last Updated DateTime 180.34 cm 30.8 kg/m2 419071. 2 g 98 /min 95 % 95 % 98.2 [degF] 121 mm[Hg] 86 mm[Hg] Fabiola TILLEY [facility] & [place] 13:23:35 Date Recorded Body height Provider Name an d Address Organization Details Last Updated DateTime 03/17/2022 180.34 cm [facility] & [place] 03/17/2022 10:19:00 Date Recorded Body height Body mass index (BMI) Body weight Body temperature Provider Name and Address Organization Details Last Updated DateTime 08/22/2024 180.34 cm 30.7 kg/m2 15579.32 g 97.8 [degF] Kenroy Herminio [facility] & [place] 08/22/2024 09:48:33 Social History Question Answer Notes LastModified by Organizat ion Details LastModified Time Tobacco Smoking Status Current Every Day Smoker Fabiola Grimm [facility], [facility] & [place] 02/25/2022 13:14:03 Do You Have An Advance Directive? No [email or web address] Information not available 02/25/2022 Are You Blind Or Do You Have Difficulty Seeing? No [email or web address] Information not available 02/25/2022 What Is Your Level Of Caffeine Consumption? Heavy Pot Coffee/day [id number] Information not available 10/05/2022 What Type Of Diet Are You Following? REGULAR [email or web address] Information not available 10/05/2022 What Was The Date Of Your Most Recent Tobacco Screening? 02/25/2022 [email or web address] Information not available 02/25/2022 Are You Passively Exposed To Smoke? Yes [email or web address] Information not available 02/25/2022 How Much Tobacco Do You Smoke? 1 PPD [email or web address] Information not available 02/25/2022 How Many Years Have You Smoked Tobacco? 20 Information not available 02/25/2022 Sex: Unknown Functional Status Question Answer Note LastModified by Organizat ion Details LastModified Time Do you use any illicit or recreational drugs? No [email or web address] Information not available 02/25/2022 What is your level of alcohol consumption? None [email or web address] Information not available 02/25/2022 Do you or have you ever used smokeless tobacco? Currently [email or web address] Information not available 02/25/2022 What is your exercise level? None [email or web address] Information not available 10/05/2022 Mental Status Question Answer Note LastModified by Organization D etails LastModified Time Do you feel stressed (tense, restless, nervous, or anxious, or unable to sleep at night)? [id number] [email or web address] Information not available 02/25/2022 Family History Relationship Description Onset Age of this Age Resolved Age Notes LastModified by Organization Details LastModified Time Mother Acute stroke [email or web address] Not a vailable 10/05/2022 14:51:47 Mother Malignant tumor of colon [email or web address] Not available 09/2022 14:52:55 Father Myocardial infarction [email or web address] Not available 14:52:05 Medical History Condition Response Coronary Artery Disease N None N Gout N Colon Cancer N Kidney Stones N Hyperthyroidism N Hypothyroidism N COPD N Depression Y Osteoporosis/Osteopenia N Diverticulitis/Diverticulosis N Colon Polyps Y [...] SNOMED-CT Code Diagnosis ICD10 Code Diagnosis Note [id number] FEDERICO Hernandez [facility] [address] [place] [address] 02/25/2022 13:01:16 02/25/2022 13:34:18 Perirectal abscess 23939313 K61.1 Postoperative visit 1836 76389 Z09 S/P I and D of perirectal abscess 02/07/2022 . [id number] FEDERICO Hernandez [facility] [address] [place] [address] 03/17/2022 10:13:44 03/17/2022 10:26:43 Postoperative visit 958707452 Z09 S/P I and D of perirectal abscess 02/07/2022 . [id number] He Guzman MD [facility] [address] [place] [address] Drive[address] [place] [address] 10/05/2022 14:13:18 10/05/2022 15:40:39 History of polyp of colon 259813331 Z86.010 History of colonic polyps, per history, records not available. Given family history feel will be best to proceed with colonoscop y without those records. Schedule at this time. Gastroesop hageal reflux disease without esophagitis 268154226 K21.9 Gastroesop hageal reflux disease, refractory to a H2 markel and PPI therapy, schedule EGD for evaluation . [id number] RUPERT MACIEL [address] GONZALEZ [address] [place] [address] 8 08/22/2024 09:20:48 08/22/2024 10:14:16 Conductive hearing loss, bilateral 198113429 H90.0 [id number] Efren Conn MD [address] GONZALEZ [address] [place] [address] 8 08/22/2024 09:23:01 08/22/2024 10:15:28 Hearing loss 55029879 H91.8X9 Bilateral perforation of tympanic membranes 1792319263 190031 H72.93 Discontinu ity of ear ossicles 89573313 H74.20 Health Concerns Section Related Observation LastModified by Organization Detai ls LastModified Time None Recorded Concern Status LastModified by Organization Details LastModified Time None Recorded Advance Directives Directive N: Payers Insurance Date Sequence Insurance Name Policy Number Policy Montiel Covered Member ID Montiel Member ID Guarantor Name 08/19/2024 1 [employer] (MEDICAID REPLACEMENT - HMO) Vince Gilman [id number] Vince Gilman Notes Date Note Type Note [...] surgery when this area heals. FEDERICO Hernandez [address] [place] [address],[address], [place], [address], [facility] & [place] 02/25/2022 13:39:02 03/17/2022 text/html Miguel Angel is in the office today for postop check. He had an incision and drainage of a perirectal abscess 02/07/2022. His is been applying a dressing on a daily basis. His pain has decreased markedly and he wishes to return to physical therapy For his back pain. FEDERICO Hernandez [address] [place] [address],[address], [place], [address], [facility] & [place] 03/17/2022 10:30:15 10/05/2022 text/html this is a [...] history of colon cancer. He Guzman MD [address] [place] [address],[address], [place], [address], [facility] & [place] 10/05/2022 15:36:37 08/22/2024 text/html Patient presents for evaluation and management of hearing loss patient states hearing has progressively declined. Efren Conn MD [address] [place] [address],[address], [place], [address], [facility] & [place] 08/22/2024 10:54:20 08/22/2024 text/html Mr. Gilman was [...] hearing aids; he will consider. LINDA MARTIN, [facility] [address] [facility],[address], [place], [address], [facility] - [facility] & [place] 08/22/2024 10:16:55
--- OUTSIDE RECORDS SUMMARY | 2024-09-10 10:32 | XMS_ITS | Continuity of Care Document ---
Author Organization [place] - [facility] Address [address] [place] [address] [address] [place] [address] Care Team Providers Care Rouge Presser Name Role Phone PRIMARY PLUS (FAMILY) Primary [...] contr ast No observ ation record ed. [email or web address] Not Available 08/22 09:23:13 08/23/19 25 12/21/2021 CT, tempo ral bone, w/o contr ast No observ ation record ed. [email or web address] Not Available 08/22 09:24:16 08/23/19 25 12/09/2021 audio gram No observ ation record ed. [email or web address] Not Available 08/22 09:25:04 08/23/19 25 08/22/2024 audio gram No observ ation record ed. [email or web address] Not Available 2024 10:16:51 Result Notes None recorded. Problems Name Problem SNOMED Code Status Onset Date Resolution Date Notes Provider Name and Address Organization Details Recorded Time Sensorineural hearing loss 49635066 Active 2024 LINDA MARTIN, AUD [address], [place], [address], [place] - [facility] - [place] & [place] 5 10:14:51 Conductive hearing loss, bilateral 641242134 Active 2024 LINDA MARTIN, AUD [email or web address], [place], [address], [place] [facility] [place] 5 10:16:24 Chronic back pain 407099271 Active 2021 Angela Florez null, [place] [facility] [place] 3 14:46:02 Asthma 328665423 Active Angela Florez null[place] [facility] [place] 3 14:46:02 Gastroesophage al reflux disease 093081612 Active 2021 Angela Florez null[place] [facility] [place] 3 14:46:02 Osteoarthritis of knee 440849461 Active 2021 Angela Florez null[place] [facility] [place] 3 14:46:02 Drug abuse 93139745 Active 2021 Angela Florez null[place] [facility] [place] 3 14:46:02 Chronic low back pain 772086535 Active 2022 Angela Florez null[place] [facility] [place] 3 14:46:02 Seasonal allergic rhinitis 675071386 Active 2022 Angela Florez null[place] [facility] [place] 3 14:46:02 Hypertensive disorder 12127575 Active 2021 Angela Florez null[place] - [facility] [place] 3 14:46:02 Cough 74940714 Active 2021 Angela Florez null[place] - [facility] [place] 3 14:46:02 Mastoiditis 20144648 Active 2021 Angela Florez null[place] [facility] [place] 3 14:46:02 Essential hypertension 00059126 Active 2022 JAREK Mann LPNT [facility] & [place] 3 14:46:02 Arthritis of lumbosacral spine 957155934 Active 2021 Angela daniel, JAREK Rachel [facility] - [place] & [place] 3 14:46:03 Gastroesophage al reflux disease without esophagitis 123629562 Active 2022 He Guzman MD [address] [place] [address],[address], [address] [facility] JAREK Rachel [facility] - [place] & [place] 3 15:31:45 Problem Notes None recorded. Procedures Surgical History Date Name Laterality Status Provider Name and Address Organization Details Recorded Time 06/03/19 23 Back Surgery completed Angela Rachel [facility]NT 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 & [place] 02/25/2022 13:14:03 Imaging Results None recorded. Procedure [...] Updated DateTime 08/22/2024 180.34 cm 30.7 kg/m2 66512.32 g 97.8 [degF] Kenroy GANDHI [facility] & [place] 08/22/2024 09:48:33 Social History Question Answer Notes LastModified by Organizat ion Details LastModified Time Tobacco Smoking Status Current Every Day Smoker JAREK Herrera [facility] & [place] 02/25/2022 13:14:03 Do You Have An Advance Directive? No Information not available 02/25/2022 Are You Blind Or Do You Have Difficulty Seeing? No Information not available 02/25/2022 What Is Your Level Of Caffeine Consumption? Heavy Pot Coffee/day [email or web address] Information not available 10/05/2022 What Type Of Diet Are You Following? REGULAR [email or web address] Information not available 10/05/2022 What Was The Date Of Your Most Recent Tobacco Screening? 02/25/2022 [email or web address] Information not available 02/25/2022 Are You Passively Exposed To Smoke? Yes Information not available 02/25/2022 How Much Tobacco Do You Smoke? 1 PPD [email or web address] Information not available 02/25/2022 How Many Years Have You Smoked Tobacco? 20 [email or web address] Information not available 02/25/2022 Sex: Unknown Functional Status Question Answer Note LastModified by Organizat ion Details LastModified Time Do you use any illicit or recreational drugs? No Information not available 02/25/2022 What is your level of alcohol consumption? None [email or web address] Information not available 02/25/2022 Do you or have you ever used smokeless tobacco? Currently chews tobacco Information not available 02/25/2022 What is your exercise level? None [email or web address] Information not available 10/05/2022 Mental Status Question Answer Note LastModified by Organization D etails LastModified Time Do you feel stressed (tense, restless, nervous, or anxious, or unable to sleep at night)? [id number] [email or web address] Information not available 02/25/2022 Family History Relationship Description Onset Age of this Age Resolved Age Notes LastModified by Organization Details LastModified Time Mother Acute stroke [email or web address] Not a vailable 10/05/2022 14:51:47 Mother Malignant tumor of colon [email or web address] Not available 09/2022 14:52:55 Father Myocardial infarction [email or web address] Not available 14:52:05 Medical History Condition Response Coronary Artery Disease N None N Gout N Colon Cancer N Kidney Stones N Hyperthyroidism N Depression Y COPD N Hypothyroidism N Osteoporosis/Osteopenia N Diverticulitis/Diverticulosis N Colon Polyps [...] SNOMED-CT Code Diagnosis ICD10 Code Diagnosis Note [id number] RUPERT MACIEL [address]NT[address] [place] [address] 08/22/2024 09:20:48 08/22/2024 10:14:16 Conductive hearing loss, bilateral 226212554 H90.0 [id number] Efren Conn MD ENT[address] [place] [address] 08/22/2024 09:23:01 08/22/2024 10:15:28 Hearing loss 35963347 H91.8X9 Bilateral perforation of tympanic membranes 3891449153 014134 H72.93 Discontinu ity of ear ossicles 10470338 H74.20 Health Concerns Section Related Observation LastModified by Organization Detai ls LastModified Time None Recorded Concern Status LastModified by Organization Details LastModified Time None Recorded Payers Encounter Date Sequence Insurance Name Policy Number Policy Montiel Covered Member ID Montiel Member ID Guarantor Name 08/22/2024 1 PASSPORT BY [employer] (MEDICAID REPLACEMENT - HMO) Vince Gilman [id number] Vince Gilman Notes Date Note Type Note Provider Name and Address Organization Details Recorded Time 08/22/2024 text/html Patient presents for evaluation and management of hearing loss patient states hearing has progressively declined. Efren Conn MD [address] [place] [address],[address], [place], [address], [facility] - NT [facility] 08/22/2024 10:54:20 08/22/2024 text/html Mr. Gilman was [...] hearing aids; he will consider. LINDA MARTIN, AUD [address] [facility],[address], [place], [address], [facility] - [facility] - [place] & [place] 08/22/2024 10:16:55
--- OUTSIDE RECORDS SUMMARY | 2024-09-10 10:32 | XMS_ITS | Continuity of Care Document ---
Author Organization [place] - [facility] & [place] [facility] Address [address] [facility] [address] [place] [address] Care Team Providers Care Community Engagement Representative Name Role Phone PRIMARY PLUS (FAMILY) Primary [...] By Organization Details Last Modified Time 08/22/2024 [id number] I have personall y reviewed the data obtained and entered from the scribe, medical appliance maker or nurse for this patient for this patient encounter. Discussed with patient. Patient for audiogram. Patient to consider hearing aid evaluation versus ossicular reconstruction. [email or web address] Not available 08/22/2024 10:53:56 Reason for Referral None Reported. Results Created Date Observation Date Name Description Value Unit Range Abnormal Flag Note LastModifiedBy Organization Detail LastModifiedTime 08/23/1912/22/2021 MRI, brain , w/o contr ast No observ ation record ed. [email or web address] Not Available 08/22 09:23:13 08/23/1912/21/2021 CT, tempo ral bone, w/o contr ast No observ ation record ed. Not Available 08/22 09:24:16 08/23/19 25 12/09/2021 audio gram No observ ation record ed. [email or web address] Not Available 08/22 09:25:04 08/23/1908/22/2024 audio gram No observ ation record ed. [email or web address] Not Available 2024 10:16:51 Result Notes None recorded. Problems Name Problem SNOMED Code Status Onset Date Resolution Date Notes Provider Name and Address Organization Details Recorded Time Sensorineural hearing loss 76567522 Active 2024 LINDA MARTIN, fypio [address], [place], [address], [place] [facility] [place] & [place] 5 10:14:51 Conductive hearing loss, bilateral 992033020 Active 2024 LINDA MARTIN, AUD [address], [place], [address], [place] [facility] [place] 5 10:16:24 Chronic back pain 921423756 Active 2021 Angela daniel, [place] [facility] [place] 3 14:46:02 Asthma 589219548 Active Angela Florez null, [place] [facility] [place] 3 14:46:02 Gastroesophage al reflux disease 818806488 Active 2021 Angela daniel, [place] - [facility] [place] & [place] 3 14:46:02 Osteoarthritis of knee 246916986 Active 2021 Angela Florez null, [place] [facility] [place] 3 14:46:02 Drug abuse 12940307 Active 2021 Angela Florez null, [place] [facility] [place] 3 14:46:02 Chronic low back pain 914659638 Active 2022 Angela Florez null, [place] [facility] [place] 3 14:46:02 Seasonal allergic rhinitis 288922893 Active 2022 Angela Florez null, [place] [facility] [place] 3 14:46:02 Hypertensive disorder 45367677 Active 2021 Angela Gautam null, [place] - [facility] [place] & [place] 3 14:46:02 Cough 80427766 Active 2021 Angela daniel, JAREK - [facility] - [place] & [place] 3 14:46:02 Mastoiditis 45095799 Active 2021 Angela daniel, JAREK - [facility] - [place] & [place] 3 14:46:02 Essential hypertension 49778780 Active 2022 JAREK Mann - [facility] - [place] & [place] 3 14:46:02 Arthritis of lumbosacral spine 615864740 Active 2021 Angela daniel, [place] - [facility] - [place] & [place] 3 14:46:03 Gastroesophage al reflux disease without esophagitis 480100885 Active 2022 He Guzman MD [address] [place] [address], [address], [place] JAREK - [facility] - [place] & [place] 3 15:31:45 Problem Notes None recorded. 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 Procedure [...] Updated DateTime 08/22/2024 180.34 cm 30.7 kg/m2 65618.32 g 97.8 [degF] Kenroy Herminio [facility] & [place] 08/22/2024 09:48:33 Social History Question Answer Notes LastModified by Organizat ion Details LastModified Time Tobacco Smoking Status Current Every Day Smoker Fabiola daniel, JAREK [facility] & [place] 02/25/2022 13:14:03 Do You Have An Advance Directive? No [email or web address] Information not available 02/25/2022 Are You Blind Or Do You Have Difficulty Seeing? No Information not available 02/25/2022 What Is Your Level Of Caffeine Consumption? Heavy Pot Coffee/day [email or web address] Information not available 10/05/2022 What Type Of Diet Are You Following? REGULAR [email or web address] Information not available 10/05/2022 What Was The Date Of Your Most Recent Tobacco Screening? 02/25/2022 [email or web address] Information not available 02/25/2022 Are You Passively Exposed To Smoke? Yes [email or web address] Information not available 02/25/2022 How Much Tobacco Do You Smoke? 1 PPD [email or web address] Information not available 02/25/2022 How Many Years Have You Smoked Tobacco? 20 [email or web address] Information not available 02/25/2022 Sex: Unknown Functional Status Question Answer Note LastModified by Organizat ion Details LastModified Time Do you use any illicit or recreational drugs? No [email or web address] Information not available 02/25/2022 What is your level of alcohol consumption? None Information not available 02/25/2022 Do you or have you ever used smokeless tobacco? Currently chews tobacco [email or web address] Information not available 02/25/2022 What is your exercise level? None [email or web address] Information not available 10/05/2022 Mental Status Question Answer Note LastModified by Organization D etails LastModified Time Do you feel stressed (tense, restless, nervous, or anxious, or unable to sleep at night)? [id number] [email or web address] Information not available 02/25/2022 Family History Relationship Description Onset Age of this Age Resolved Age Notes LastModified by Organization Details LastModified Time Mother Acute stroke [email or web address] Not a vailable 10/05/2022 14:51:47 Mother Malignant tumor of colon [email or web address] Not available 09/2022 14:52:55 Father Myocardial infarction [email or web address] Not available 14:52:05 Medical History Condition Response [...] SNOMED-CT Code Diagnosis ICD10 Code Diagnosis Note [id number] RUPERT MACIEL [address] [place] [address] 08/22/2024 09:20:48 08/22/2024 10:14:16 Conductive hearing loss, bilateral 122461832 H90.0 [id number] Efren Conn MD [address] [place] [address] 08/22/2024 09:23:01 08/22/2024 10:15:28 Hearing loss 37880058 H91.8X9 Bilateral perforation of tympanic membranes 7689339560 009903 H72.93 Discontinu ity of ear ossicles 53458274 H74.20 Health Concerns Section Related Observation LastModified by Organization Detai ls LastModified Time None Recorded Concern Status LastModified by Organization Details LastModified Time None Recorded Payers Encounter Date Sequence Insurance Name Policy Number Policy Montiel Covered Member ID Montiel Member ID Guarantor Name 08/22/2024 1 [employer]SP[employer] BY [employer] (MEDICAID REPLACEMENT - HMO) Vince Gilman [id number] Vince Gilman Notes Date Note Type Note Provider Name and Address Organization Details Recorded Time 08/22/2024 text/html Patient presents for evaluation and management of hearing loss patient states hearing has progressively declined. Efren Conn MD [address] [place] [address],[address], [place], [address], [facility] 08/22/2024 10:54:20 08/22/2024 text/html Mr. Gilman was [...] hearing aids; he will consider. LINDA MARTIN, [facility] [address] [facility] [facility],[address], [place], [address], [facility] - [facility] - [place] & [place] 08/22/2024 10:16:55
[2024-09-10 10:48] VITALS: BP 164/101; BP 166/90; PULSE 100; RESP 14; O2SAT 97; BMI 30.7
--- NOTE | 2024-09-10 11:20 | EXP.PAIN.PRO ---
Procedure Date: 09/10/24 Time: 11:21 Anesthesiologist:: Vivien Dobbs APRN Complications:: None Pre-procedure Diagnosis:: Degenerative disc disease of lumbar spine with lumbar radiculopathy symptoms Post-procedure Diagnosis:: Same Indications for Procedure:: Patient is a pleasant 44-year-old male who presents today for intrathecal adjustment and reprogram. Today he rates his pain a 9 out of 10. He denies any new falls or injuries. He does state that he is still having the chronic low back pain as well as symptoms going down into his legs. Patient does state that it will vary which leg from day-to-day. He states he does have numbness and tingling. Patient has recently seen neurosurgery and they are at however is being sent to a complex neurosurgeon due to his longstanding history of previous lumbar fusion. Patient does state that that provider was recommending a lumbar epidural at the L5-S1 level. Patient does state today that he is interested in trying this injection as the pain does interfere with his ability perform activities of daily living such as cooking and cleaning. Patient is currently managed with fentanyl 250 mcg/mL with a daily dose of 88.84 mcg/day. He denies any side effects. He is requesting an increase. His Benitez has been reviewed and is appropriate. Physical Exam: General: Alert and oriented x3, no acute distress, pleasant and cooperative Lungs: Respirations even and unlabored, symmetrical chest expansion Eyes: PERRL Musculoskeletal: Flexion and extension of lumbar [spine] somewhat guarded secondary to pain, [antalgic gait noted] positive leg raise Neurological: Speech clear, no gross sensory deficit Procedure Details:: Informed consent was obtained and the risk and benefits of the procedure were explained to the patient. Patient did have noninvasive monitoring was placed including noninvasive blood pressure cuff and pulse oximeter. Patient's pump was interrogated and was reprogrammed to fentanyl 111 mcg/day. The patient tolerated the procedure well with no complications. Plan and Disposition:: Patient tolerated the procedure well with no complications and was discharged neurologically intact. Patient is experiencing worsening pain in his low back with numbness and tingling into his lower extremities. Patient did have limited range of motion of his lumbar spine with a positive leg raise. I did discuss with patient that I do believe they would benefit from a lumbar epidural steroid injection. Risk and benefits were discussed with patient and the patient would like to proceed forward with this plan of care. Patient is not on any blood thinners. Patient has tried and failed conservative therapy including oral medication, heat and ice, topicals, previous physical therapy and continued at home stretching exercise for longer than 12 weeks between injections. Patient has been seen by neurosurgery and is possibly a candidate for additional surgery however they are recommending an epidural at the L5-S1 level. Based off of his results this may show that he would or would not benefit from additional fusion. We will schedule the patient for an LESI L5-S1 under fluoroscopy. Patient has been instructed to contact the clinic with any concerns before the next appointment. Dr. Ceron has reviewed this note and agrees with this plan of care. This note was dictated using voice recognition software and make contain errors or omissions. All injections are used with Lidocaine, Bupivacaine and Depo Medrol. Occasionally urine drug screen is needed to verify patient's compliance with our office pain contract. This is ordered based off specific treatments related to chronic pain with the potential to abuse certain medications. We will see the patient back in the clinic at the next intrathecal refill. Patient has been instructed to contact the clinic with any concerns before the next appointment. Dr. Ceron has reviewed this note and agrees with this plan of care. This note was dictated using voice recognition software and make contain errors or omissions. -- It Is medically necessary for this patient to continue to have their intrathecal pump refilled at regular intervals. This patient had an intrathecal pain pump implanted after meeting criteria of chronic intractable pain for greater than 3 months and failing conservative treatments. Patient has committed and been compliant to the treatment plan and all planned follow up care. Since implantation of the intrathecal pain pump, the patient has had decreased pain and been more functional. Oral medications have been reduced including intake of oral opioids. Patient continues to do well with intrathecal therapy with decrease in pain symptoms and increase in functional status. Stopping intrathecal medications can lead to life threatening withdrawal, seizures, cardiac arrest, severe pain, and possible . Pumps that are not refilled at regular intervals can be damages and cause and need for replacement. We continually titrate dose and concentration to optimize pain relief and function. We are limited in concentration for certain drugs to safely deliver medications through the pump and stay within the recommendations from the Polyanalgesic Consensus Committee Guidelines. Depending on dose and concentration these pumps may need to be refilled sooner than 3 months as we titrate. A UDS is needed to verify patient's compliance with our office pain contract. This is ordered based off specific treatments related to chronic pain with the potential to abuse certain medications.
== END 2024-09-10 23:59 | disposition home or self-care (01) ==
PROVIDERS: Visit Provider Nurse Practitioner Family
DX: M51.16 Intervertebral disc disorders with radiculopathy, lumbar region (principal); Z73.89 Other problems related to life management difficulty
CPT/HCPCS: 62368; 99212; G0463

== ENCOUNTER 2024-09-11 13:29 | Emergency (ER) | payer MEDICAID, SELFPAY ==
[2024-09-11 13:34] VITALS: BP 182/105; PULSE 92; O2SAT 94
--- NOTE | 2024-09-11 13:35 | CT_ITS ---
PROCEDURE INFORMATION: Exam: CT Abdomen And Pelvis With Contrast Exam date and time: 09/11/2024 3:09 PM Age: 44 years old Clinical indication: Abdominal pain; Prior surgery; Surgery date: 6+ months; Surgery type: Appendectomy; Additional info: Rlq abd and testicular pain, previous appendectomy TECHNIQUE: Imaging protocol: Computed tomography of the abdomen and pelvis with contrast. Radiation optimization: All CT scans at this facility use at least one of these dose optimization techniques: automated exposure control; mA and/or kV adjustment per patient size (includes targeted exams where dose is matched to clinical indication); or iterative reconstruction. Contrast material: ISOVUE; Contrast volume: 75 ml; Contrast route: IV; COMPARISON: No relevant prior studies available. FINDINGS: Tubes, catheters and devices: There is a neuro stimulatory device with pattern implanted within the right paraspinal soft tissues electrode terminating within the lower thoracic spinal canal. Lungs: Lung bases are clear. Liver: Mild fatty infiltration throughout the liver. No masses or enlargement detected. Gallbladder and biliary ducts: Normal. No calcified stones. No ductal dilation. Pancreas: Unremarkable. Main pancreatic duct is not significantly dilated. Spleen: Normal. No splenomegaly. Adrenal glands: Normal. No mass. Kidneys and ureters: Small nonobstructing calculi both kidneys. No ureteral stones or hydronephrosis on either side. Stomach and bowel: Right half of the large bowel is somewhat distended with stool. There are scattered diverticuli distal large bowel without evidence acute diverticulitis. Appendix: The appendix has been removed. Intraperitoneal space: Unremarkable. No free air. No significant fluid collection. Vasculature: Unremarkable. No abdominal aortic aneurysm. Lymph nodes: Unremarkable. No enlarged lymph nodes. Urinary bladder: Unremarkable as visualized. Reproductive: Unremarkable as visualized. Bones/joints: Postsurgical changes L4-L5 with arthrodesis and interbody spacer. Hardware is intact. No acute bony abnormalities. Soft tissues: There are some nodular calcifications right buttock likely secondary to calcified injection granulomas. IMPRESSION: 1. No acute findings within the abdomen or pelvis. 2. Small nonobstructing calculi both kidneys.
--- NOTE | 2024-09-11 13:35 | HMH.EDGENADL ---
Discharge Plan Disposition Patient Disposition: Home, Self-Care Condition: Good Prescriptions Prescriptions: No Action paroxetine HCl 30 mg tablet 30 mg PO DAILY Patient Comments: TAKE ONE TABLET BY MOUTH EVERY MORNING diazepam 5 mg tablet 5 mg PO BID Patient Comments: TAKE ONE TABLET BY MOUTH TWICE DAILY NEEDED omeprazole 40 mg capsule,delayed release(DR/EC) 40 mg PO DAILY Patient Comments: TAKE ONE CAPSULE BY MOUTH DAILY NEEDED FOR BREAKTHROUGH REFLUX amlodipine 10 mg tablet 10 mg PO DAILY Patient Comments: TAKE 1 TABLET BY MOUTH ONCE DAILY lidocaine 5 % adhesive patch,medicated 1 patch topical DAILY Qty: 30 2RF Rx Instructions: leave on most painful area for up to 12 hrs naproxen 500 mg Tablet 500 mg PO BID Qty: 60 2RF fentanyl citrate (PF)-0.9%NaCl 5 mcg/mL Solution 250 mcg EPIDURAL CONT Rx Instructions: CORRECTION TO STRENGTH MEDICATION IS FENTANYL 250MCG/ML. REFER TO EMR FOR CURRENT DAILY DOSE. Referrals Follow up/Referrals: Sheila Ovalle DO [Primary Care Provider] - See instructions Activity Restrictions/Add. Instructions Additional Instructions/Restrictions: Recommend following up with your spine surgeon as discussed. Also recommend following up with pain management at earliest available appointment. If you have any worsening signs or symptoms follow-up with your PCP return the ER as needed Clinical Impressions Clinical Impression: Acute exacerbation of chronic low back pain Radiculopathy Qualifiers: Spinal region: lumbosacral Qualified Code(s): M54.17 - Radiculopathy, lumbosacral region Instructions Patient Instructions: DI for Low Back Pain Print Language Print Language: Citizen Of [place] Discharge ED Provider: Khari Bobo General Adult HPI <FEDERICO Baron - Last Filed: 09/11/24 20:59> General Chief complaint: Back Pain/Injury Stated complaint: Testicular pain Time Seen by Provider: 09/11/24 13:35 History of Present Illness HPI narrative: Patient presents for evaluation of right testicular pain. Patient has a longstanding history of degenerative degenerative disc disease of the lumbar spine with neurogenic claudication and multiple back surgeries. Patient has had a referral to the [facility] to the complex spine service. Patient reports over the last 3 days he has had increasing right sided low back pain that radiates to his right testicle. He denies chest pain shortness of breath fever chills hemoptysis hematochezia melena nausea vomiting diarrhea abdominal pain loss of bladder or bowel function no focal neurologic deficits. He contacted the [facility] who told him to go to the closest local emergency department to rule out testicular torsion. On arrival to the emergency department patient stumbled and fell forward in the ER lobby but did not strike his head did not lose consciousness. He does have a seizure disorder but did not have seizure activity. At the time of arrival to the patient in the lobby patient was awake and alert Randy Coma Score 15. Related Data Home Medications ?Medication ?Instructions ?Recorded ?Confirmed amlodipine 10 mg tablet 10 mg PO DAILY BLOOD PRESSURE 07/30/22 09/10/24 omeprazole 40 mg capsule,delayed 40 mg PO DAILY GERD 07/30/22 09/10/24 release diazepam 5 mg tablet 5 mg PO BID Anxiety 01/12/23 09/10/24 paroxetine HCl 30 mg tablet 30 mg PO DAILY mood 01/12/23 09/10/24 fentanyl (PF) 5 mcg/mL in 0.9 % 250 mcg epidural CONT Pain 07/27/23 09/10/24 sodium chloride intravenous Previous Rx's ?Medication ?Instructions ?Recorded lidocaine 5 % topical patch 1 patch topical DAILY #30 ea 06/22/23 naproxen 500 mg tablet 500 mg PO BID Pain #60 tabs 06/22/23 Allergies Allergy/AdvReac Type Severity Reaction Status Date / Time No Known Allergies Allergy Verified 06/29/24 10:01 [facility] <FEDERICO Baron - Last Filed: 09/11/24 20:59> [facility] Disclaimer: The information contained in this section may have been updated after the patient was seen, as this information can be updated by other users. Medical History Asthma DDD (degenerative disc disease), lumbar GERD (gastroesophageal reflux disease) HTN (hypertension) Surgical History H/O knee surgery H/O lumbar discectomy H/O shoulder surgery History of appendectomy History of placement of ear tubes Hx of resection of small bowel Family History Other Colon cancer Family history of diabetes mellitus type II Family history of myocardial infarction Family history of stroke Social History Smoking Status: Current every day smoker tobacco type: cigarettes packs per day: 1 alcohol intake: never substance use type: denies use current occupational status: other Travel in the last 8 weeks?: None household members: significant other housing: house lives independently: Yes marital status: single education level: college service: No caffeine: Yes special vimal needs: No agree to transfusion: No do you feel safe at home: Yes victim of physical abuse: No victim of emotional abuse: No victim of sexual abuse: No would you like helpful sources: No Have you lived/traveled outside [place] in past 30 days?: No Contact w/someone who lives/traveled outside US past 30 days?: No Exposure to someone with infectious disease in past 14 days?: No Do you have a fever (greater than 100.4 F or 38 C)?: No Have you tested positive for COVID-19?: No Exposed to someone with COVID-19 in past 14 days?: No Do you have a sore throat?: No Do you have a cough?: No Do you have any weakness?: No Do you have any diarrhea?: No Are you experiencing any unusual bleeding?: No Do you have any muscle aches/pain?: No Do you have any abdominal pain?: No Are you experiencing loss of taste or smell?: No Other Medical History Have you received the Flu Vaccine for this season: No Have you received the Pneumonia Vaccine: No <FEDERICO Baron - Last Filed: 09/11/24 20:59> ROS Obtained: Yes Systems reviewed as appropriate & no additional complaints except as documented Physical Exam <FEDERICO Baron - Last Filed: 09/11/24 20:59> General General appearance: alert and in no apparent distress Respiratory Respiratory exam: Present normal lung sounds bilaterally Cardiovascular Cardiovascular exam: Present regular rate Neurological Exam Neurological exam: Present alert, oriented X3 and CN II-XII intact; Absent normal gait (Antalgic and walks with a cane) Psychiatric Psychiatric exam: Present agitated and anxious Medical Decision Making <FEDERICO Baron - Last Filed: 09/11/24 20:59> Medical Records Medical records reviewed: Yes I reviewed the patient's medical records. Screening: Per USPSTF and CDC recommendations, given the prevalence of disease in our region, it is our hospital?s policy to screen for HIV and viral Hepatitis for all patients aged 18 and over and those with ongoing risk factors. Benitez Inquiry Pt receiving controlled substance: No Vital Signs: 09/11/24 13:34 09/11/24 13:36 09/11/24 13:54 Temperature 98.1 F Temperature Source Oral Pulse Rate 92 H 98 H Pulse Rate [Left Radial] 95 H Respiratory Rate 17 Blood Pressure 182/105 H 158/104 H Blood Pressure [Right Arm] 118/60 Blood Pressure Mean Blood Pressure Mean [Right Arm] 79 Blood Pressure Source [Right Arm] Automatic Cuff Blood Pressure Position [Right Arm] Sitting 02 Sat by Pulse Oximetry 94 L 98 94 L Oxygen Delivery Method Room Air Room Air 09/11/24 15:01 09/11/24 17:23 Temperature 98.1 F Temperature Source Pulse Rate 73 73 Pulse Rate [Left Radial] Respiratory Rate 17 Blood Pressure 155/123 H 155/123 H Blood Pressure [Right Arm] Blood Pressure Mean 130 Blood Pressure Mean [Right Arm] Blood Pressure Source [Right Arm] Blood Pressure Position [Right Arm] 02 Sat by Pulse Oximetry Oxygen Delivery Method Lab Data Lab results reviewed: Yes I reviewed the patient's lab results. Lab Results 09/11/24 14:22: WBC 11.3 H, RBC 5.57, Hgb 16.6, Hct 47.9, MCV 86.0, MCH 29.8, MCHC 34.7, RDW 13.7, Plt Count 328, MPV 9.4, Neut % (Auto) 69.0, Lymph % (Auto) 20.7, [place] % (Auto) 7.8, Eos % (Auto) 0.6, Baso % (Auto) 1.1, Neut # (Auto) 7.8, Lymph # (Auto) 2.4, [place] # (Auto) 0.9, Eos # (Auto) 0.1, Baso # (Auto) 0.1, PT 10.1, INR 0.89 L, Sodium 136, Potassium 4.1, Chloride 107, Carbon Dioxide 24, Anion Gap 9.1, BUN 16, Creatinine 0.70, Estimated Creat Clear 96, Estimated GFR 123, Est GFR ( Amer) 149, Glucose 89, Calcium 9.6, Total Bilirubin 0.6, AST 33, ALT 26, Alkaline Phosphatase 72, Total Protein 7.9, Albumin 5.2 H, Globulin 2.7, Albumin/Globulin Ratio 1.9 H, Procalcitonin 0.050, HCV Ab AYAD w/Rflx PCR Qn Negative, HIV Ag/Ab Combo Qual Negative 09/11/24 14:45: Lactate 1.0 09/11/24 15:26: Urine Color Yellow, Urine Appearance Clear, Urine pH 6.5, Ur Specific Welcome <= 1.005, Urine Protein Negative, Urine Glucose (UA) Negative, Urine Ketones Negative, Urine Blood Trace-i, Urine Nitrate Negative, Urine Bilirubin Negative, Urine Urobilinogen 0.2, Ur Leukocyte Esterase Negative, Urine RBC None, Urine WBC Occasional, Ur Squamous Epith Cells None, Urine Bacteria Trace 09/11/24 14:22 09/11/24 14:22 Orders (Tests/Meds): ED MEDICATIONS Discontinued Medications Generic Name Dose Route Start Last Admin Trade Name Freq PRN Reason Stop Dose Admin Acetaminophen 1,000 mg 09/11/24 13:35 09/11/24 14:04 Acetaminophen 500mg Tab PO 09/11/24 13:36 1,000 mg ONCE ONE Administration Dexamethasone Sodium Phosphate 10 mg 09/11/24 13:35 09/11/24 14:37 Dexamethasone 4mg/Ml 5ml Mdv IV 09/11/24 13:36 10 mg ONCE ONE Administration Iopamidol 75 ml 09/11/24 15:07 09/11/24 15:08 Iopamidol-370 (76%);100ml Bottle IV 09/11/24 15:08 75 ml ONCE ONE Administration Ketorolac Tromethamine 15 mg 09/11/24 13:35 09/11/24 14:39 Ketorolac 30mg/Ml Vial IV 09/11/24 13:36 15 mg ONCE ONE Administration Lorazepam 0.5 mg 09/11/24 13:35 09/11/24 14:38 Lorazepam 2mg/Ml Vial IV 09/11/24 13:36 0.5 mg ONCE ONE Administration Methocarbamol 500 mg 09/11/24 13:35 09/11/24 14:03 Methocarbamol 500mg Tablet PO 09/11/24 13:36 500 mg ONCE ONE Administration Ondansetron HCl 4 mg 09/11/24 13:35 09/11/24 14:37 Ondansetron 4mg/2ml Vial IV 09/11/24 13:36 4 mg ONCE ONE Administration Sodium Chloride 10 ml 09/11/24 13:35 Sodium Chloride 0.9% 10ml Vial IV 10/11/24 13:34 NEEDED PRN to Dilute Lorazepam inj Sodium Chloride 10 ml 09/11/24 15:07 09/11/24 15:08 Sodium Chloride 0.9% 10ml Syr (Rad Only) IV 09/11/24 15:08 10 ml ONCE ONE Administration ORDERS Category Date Time Status CT abdomen pelvis w con Stat Cat Scan 09/11/24 13:35 Completed CBC w/Auto Diff [Complete Blood Count Auto Diff] Stat Lab 09/11/24 14:22 Completed CMP [Comprehensive Metabolic Panel] Stat Lab 09/11/24 14:22 Completed HIV Combo Stat Lab 09/11/24 14:22 Completed Hepatitis C Ab Qual. W/ RFX Stat Lab 09/11/24 14:22 Completed INR [Prothrombin Time INR] Stat Lab 09/11/24 14:22 Completed Lactic Acid Stat Lab 09/11/24 14:45 Completed Procalcitonin Stat Lab 09/11/24 14:22 Completed UA [Urinalysis and Microscopic] Stat Lab 09/11/24 15:26 Completed Testicular US [US Testicular] Stat Ultrasound 09/11/24 15:57 Completed Medical Decision Narrative: In summary patient is a 44-year-old male who presents to the emergency department for evaluation of right sided lumbar pain that radiates to his right testicle. Patient is initially hypertensive with a blood pressure of 182/105 heart rate 92 with normal sinus rhythm on bedside monitor breathing 17 times minute satting 94% room air upon arrival, afebrile at 90.1. Physical exam reveals tenderness to palpation in the lumbar sacral area to palpation however there is no palpable bony deformity. He moves all 4 extremities spontaneously without any focal neurologic deficits. He has no saddle anesthesia. Examination of the external genitalia reveals him to be normal with no evidence of induration cellulitis or swelling. There is no asymmetry. Examination of the testicle on the right reveals no palpable masses swelling or overt tenderness.. Differential diagnosis includes acute on chronic low back pain with sciatica versus hernia versus gastritis versus kidney stone versus pyelonephritis versus urinary tract infection etc. Initial workup will be conducted with hematologic labs urinalysis CT scan abdomen pelvis testicular ultrasound. Initial interventions include Tylenol Decadron Robaxin Toradol Zofran Ativan. Initial workup reviewed by me shows that his hematologic labs significant for white count of 11.3 normal H&H with no neutrophilic shift, INR 0.89, the remainder of his hematologic labs are nonactionable including normal procalcitonin 0.050 urinalysis is bland and my formal interpretation of his imaging shows no acute intra-abdominal processes and his ultrasound was read by radiology as normal with no evidence of torsion or abnormality. Upon repeat evaluation I discussed with the patient his presentation and findings and patient states that he just had his fentanyl pain pump increased yesterday as well. Patient is amatory in the ER and while there remains diagnostic certainty I feel this most likely represents lumbosacral degenerative disc disease that is acute on chronic with sciatica without focal neurologic deficit. Given this patient is appropriate for discharge with recommendations to follow-up closely with his pain management and spine surgeon and should he have persistent new or worsening signs or symptoms to follow-up sooner or return to the ER as needed. Patient verbalized understanding agreement <Jesus Carrington MD - Last Filed: 09/11/24 21:22> Vital Signs: 09/11/24 13:34 09/11/24 13:36 09/11/24 13:54 Temperature 98.1 F Temperature Source Oral Pulse Rate 92 H 98 H Pulse Rate [Left Radial] 95 H Respiratory Rate 17 Blood Pressure 182/105 H 158/104 H Blood Pressure [Right Arm] 118/60 Blood Pressure Mean Blood Pressure Mean [Right Arm] 79 Blood Pressure Source [Right Arm] Automatic Cuff Blood Pressure Position [Right Arm] Sitting 02 Sat by Pulse Oximetry 94 L 98 94 L Oxygen Delivery Method Room Air Room Air 09/11/24 15:01 09/11/24 17:23 Temperature 98.1 F Temperature Source Pulse Rate 73 73 Pulse Rate [Left Radial] Respiratory Rate 17 Blood Pressure 155/123 H 155/123 H Blood Pressure [Right Arm] Blood Pressure Mean 130 Blood Pressure Mean [Right Arm] Blood Pressure Source [Right Arm] Blood Pressure Position [Right Arm] 02 Sat by Pulse Oximetry Oxygen Delivery Method Lab Data Lab Results 09/11/24 14:22: WBC 11.3 H, RBC 5.57, Hgb 16.6, Hct 47.9, MCV 86.0, MCH 29.8, MCHC 34.7, RDW 13.7, Plt Count 328, MPV 9.4, Neut % (Auto) 69.0, Lymph % (Auto) 20.7, [place] % (Auto) 7.8, Eos % (Auto) 0.6, Baso % (Auto) 1.1, Neut # (Auto) 7.8, Lymph # (Auto) 2.4, [place] # (Auto) 0.9, Eos # (Auto) 0.1, Baso # (Auto) 0.1, PT 10.1, INR 0.89 L, Sodium 136, Potassium 4.1, Chloride 107, Carbon Dioxide 24, Anion Gap 9.1, BUN 16, Creatinine 0.70, Estimated Creat Clear 96, Estimated GFR 123, Est GFR ( Amer) 149, Glucose 89, Calcium 9.6, Total Bilirubin 0.6, AST 33, ALT 26, Alkaline Phosphatase 72, Total Protein 7.9, Albumin 5.2 H, Globulin 2.7, Albumin/Globulin Ratio 1.9 H, Procalcitonin 0.050, HCV Ab AYAD w/Rflx PCR Qn Negative, HIV Ag/Ab Combo Qual Negative 09/11/24 14:45: Lactate 1.0 09/11/24 15:26: Urine Color Yellow, Urine Appearance Clear, Urine pH 6.5, Ur Specific Welcome <= 1.005, Urine Protein Negative, Urine Glucose (UA) Negative, Urine Ketones Negative, Urine Blood Trace-i, Urine Nitrate Negative, Urine Bilirubin Negative, Urine Urobilinogen 0.2, Ur Leukocyte Esterase Negative, Urine RBC None, Urine WBC Occasional, Ur Squamous Epith Cells None, Urine Bacteria Trace Orders (Tests/Meds): ED MEDICATIONS Discontinued Medications Generic Name Dose Route Start Last Admin Trade Name Freq PRN Reason Stop Dose Admin Acetaminophen 1,000 mg 09/11/24 13:35 09/11/24 14:04 Acetaminophen 500mg Tab PO 09/11/24 13:36 1,000 mg ONCE ONE Administration Dexamethasone Sodium Phosphate 10 mg 09/11/24 13:35 09/11/24 14:37 Dexamethasone 4mg/Ml 5ml Mdv IV 09/11/24 13:36 10 mg ONCE ONE Administration Iopamidol 75 ml 09/11/24 15:07 09/11/24 15:08 Iopamidol-370 (76%);100ml Bottle IV 09/11/24 15:08 75 ml ONCE ONE Administration Ketorolac Tromethamine 15 mg 09/11/24 13:35 09/11/24 14:39 Ketorolac 30mg/Ml Vial IV 09/11/24 13:36 15 mg ONCE ONE Administration Lorazepam 0.5 mg 09/11/24 13:35 09/11/24 14:38 Lorazepam 2mg/Ml Vial IV 09/11/24 13:36 0.5 mg ONCE ONE Administration Methocarbamol 500 mg 09/11/24 13:35 09/11/24 14:03 Methocarbamol 500mg Tablet PO 09/11/24 13:36 500 mg ONCE ONE Administration Ondansetron HCl 4 mg 09/11/24 13:35 09/11/24 14:37 Ondansetron 4mg/2ml Vial IV 09/11/24 13:36 4 mg ONCE ONE Administration Sodium Chloride 10 ml 09/11/24 13:35 Sodium Chloride 0.9% 10ml Vial IV 10/11/24 13:34 NEEDED PRN to Dilute Lorazepam inj Sodium Chloride 10 ml 09/11/24 15:07 09/11/24 15:08 Sodium Chloride 0.9% 10ml Syr (Rad Only) IV 09/11/24 15:08 10 ml ONCE ONE Administration ORDERS Category Date Time Status CT abdomen pelvis w con Stat Cat Scan 09/11/24 13:35 Completed CBC w/Auto Diff [Complete Blood Count Auto Diff] Stat Lab 09/11/24 14:22 Completed CMP [Comprehensive Metabolic Panel] Stat Lab 09/11/24 14:22 Completed HIV Combo Stat Lab 09/11/24 14:22 Completed Hepatitis C Ab Qual. W/ RFX Stat Lab 09/11/24 14:22 Completed INR [Prothrombin Time INR] Stat Lab 09/11/24 14:22 Completed Lactic Acid Stat Lab 09/11/24 14:45 Completed Procalcitonin Stat Lab 09/11/24 14:22 Completed UA [Urinalysis and Microscopic] Stat Lab 09/11/24 15:26 Completed Testicular US [US Testicular] Stat Ultrasound 09/11/24 15:57 Completed Medical Decision Narrative: In summary patient is a 44-year-old male who presents to the emergency department for evaluation of right sided lumbar pain that radiates to his right testicle. Patient is initially hypertensive with a blood pressure of 182/105 heart rate 92 with normal sinus rhythm on bedside monitor breathing 17 times minute satting 94% room air upon arrival, afebrile at 90.1. Physical exam reveals tenderness to palpation in the lumbar sacral area to palpation however there is no palpable bony deformity. He moves all 4 extremities spontaneously without any focal neurologic deficits. He has no saddle anesthesia. Examination of the external genitalia reveals him to be normal with no evidence of induration cellulitis or swelling. There is no asymmetry. Examination of the testicle on the right reveals no palpable masses swelling or overt tenderness.. Differential diagnosis includes acute on chronic low back pain with sciatica versus hernia versus gastritis versus kidney stone versus pyelonephritis versus urinary tract infection etc. Initial workup will be conducted with hematologic labs urinalysis CT scan abdomen pelvis testicular ultrasound. Initial interventions include Tylenol Decadron Robaxin Toradol Zofran Ativan. Initial workup reviewed by me shows that his hematologic labs significant for white count of 11.3 normal H&H with no neutrophilic shift, INR 0.89, the remainder of his hematologic labs are nonactionable including normal procalcitonin 0.050 urinalysis is bland and my formal interpretation of his imaging shows no acute intra-abdominal processes and his ultrasound was read by radiology as normal with no evidence of torsion or abnormality. Upon repeat evaluation I discussed with the patient his presentation and findings and patient states that he just had his fentanyl pain pump increased yesterday as well. Patient is amatory in the ER and while there remains diagnostic certainty I feel this most likely represents lumbosacral degenerative disc disease that is acute on chronic with sciatica without focal neurologic deficit. Given this patient is appropriate for discharge with recommendations to follow-up closely with his pain management and spine surgeon and should he have persistent new or worsening signs or symptoms to follow-up sooner or return to the ER as needed. Patient verbalized understanding agreement. Jesus Carrington: Patient's workup from a scrotal standpoint as well as abdomen pelvis and back standpoint is ultimately nonactionable. I suspect the patient has referred radicular pain given his known state of his spine pending spine surgeon evaluation and he already has a pain pump that is indwelling with recent dose changes. Patient was ambulatory with assistance of his cane and is appropriate for outpatient management at this time Critical Care <FEDERICO Baron - Last Filed: 09/11/24 20:59> Critical Care Time Critical Care Time: Yes Attestation: On 09/11/24, the high probability of a clinically significant, sudden or life threatening deterioration of the following system(s) required my full and direct attention, intervention and personal management. The time I documented below is in addition to time spent performing reported procedures but includes the following listed in this critical care notation. Total Time Total Critical Care Time: 30
[2024-09-11 13:36] VITALS: BP 118/60; PULSE 95; RESP 17; TEMP 36.7; O2SAT 98; BMI 43.9
[2024-09-11 13:54] VITALS: BP 158/104; PULSE 98; O2SAT 94
[2024-09-11] MEDS: METHOCARBAMOL 500MG TABLET 500 MG PO (14:03)
[2024-09-11] MEDS: ACETAMINOPHEN 500MG TAB 1000 MG PO (14:04)
--- NOTE | 2024-09-11 14:30 | PC.NURSE ---
Pt is using profanity at staff and asking for pain medication. this nurse attempted to redirect him and assured him we were bringing his medication.
[2024-09-11 14:32] LABS: Basophils # 0.1 K/mm3 (0-0.2); Basophils % 1.1 % (0.1-2.0); Eosinophils # 0.1 Kmm3 (0.0-0.4); Eosinophils % 0.6 % (0.1-12.0); Hematocrit 47.9 % (42.0-52.0); Hemoglobin 16.6 g/dL (14.1-18.0); Immature Granulocytes # 0.09 10^3uL; Immature Granulocytes % 0.8 %; Lymphocytes # 2.4 K/mm3 (0.7-4.5); Lymphocytes % 20.7 % (10-50); Mean Corpuscular HGB Conc 34.7 g/dL (31.8-35.4); Mean Corpuscular Hemoglobin 29.8 pg (27.0-31.2); Mean Platelet Volume 9.4 fl (7.4-10.4); Monocytes # 0.9 K/mm3 (0.1-1.0); Monocytes % 7.8 % (1.7-9.3); Neutrophils # 7.8 K/mm3 (1.8-7.8); Nucleated Red Blood Cells # 0 10^3/uL; Nucleated Red Blood Cells % 0 %; Platelet Count 328 K/mm3 (142-424); Red Blood Count 5.57 M/mm3 (4.60-6.20); Red Cell Distribution Width 13.7 % (11.5-17.5); Red Cell Distribution Width-SD 43.7 fL; White Blood Count 11.3 K/mm3 (4.8-10.8)
[2024-09-11] MEDS: ONDANSETRON 4MG/2ML VIAL 4 MG IV (14:37)
[2024-09-11] MEDS: DEXAMETHASONE 4MG/ML 5ML MDV 10 MG IV (14:37)
[2024-09-11] MEDS: LORazepam 2MG/ML VIAL 0.5 MG IV (14:38)
[2024-09-11] MEDS: KETOROLAC 30MG/ML VIAL 15 MG IV (14:39)
[2024-09-11 14:41] LABS: INR 0.89 (0.9-1.1); Prothrombin Time 10.1 seconds (10.1-12.5)
[2024-09-11 14:43] LABS: Alanine Aminotransferase 26 U/L (12-78); Albumin Level 5.2 g/dl (3.5-5.0); Albumin/Globulin Ratio 1.9 (1.1-1.8); Alkaline Phosphatase 72 U/L (38-126); Anion Gap 9.1 mEq/L (5-15); Aspartate Amino Transferase 33 U/L (17-59); Bilirubin,Total 0.6 mg/dl (0.2-1.3); Blood Urea Nitrogen 16 mg/dl (9-20); Calcium 9.6 mg/dl (8.4-10.2); Carbon Dioxide 24 mmol/L (22.0-30.0); Chloride 107 mmol/L (98-107); Creatinine Clearance Estimated 96 mL/min (50-200); Estimated Glomerular Filt Rate 123 ml/min (>60); GFR (African American) 149 ML/MIN (>60); Globulin 2.7 g/dL (1.3-3.2); Glucose 89 mg/dl (74-100); Potassium 4.1 mmoL/L (3.5-5.1); Sodium 136 mmol/L (136-145); Total Protein,Serum 7.9 g/dl (6.3-8.2)
--- NOTE | 2024-09-11 14:59 | PC.NURSE ---
pt walking in room on the phone swearing and stating that he was unhappy with the medication he got because he wants narcotics for his pain. this nurse and BENY Ochoa informed him of the meds the doctors ordered and that we let the providers know of his complaints b ut that he would have to stop using profanity at staff
[2024-09-11 15:01] VITALS: BP 155/123; PULSE 73
[2024-09-11] MEDS: IOPAMIDOL-370 (76%);100ML BOTTLE 75 ML IV (15:08)
[2024-09-11] MEDS: SODIUM CHLORIDE 0.9% 10ML SYR (RAD ONLY) 10 ML IV (15:08)
--- NOTE | 2024-09-11 15:10 | PC.NURSE ---
Mirella Capone to bedside to redirect patient. House Supp. aware of situation at this time
[2024-09-11 15:32] LABS: Microscopic, Urine URINE MICROSCOPIC (MICROSCOPIC)
[2024-09-11 15:35] LABS: Appearance,Urine CLEAR (Clear); Bilirubin,Urine Negative (Negative); Blood, Urine TRACE-I (Negative); Color,Urine YELLOW (Yellow); Glucose,Urine (UA) Negative (Negative); Ketones,Urine Negative (Negative); Leukocyte Esterase,Urine Negative (Negative); Nitrate,Urine Negative (Negative); PH,Urine 6.5 (5.0-8.5); Protein,Urine Negative (Negative); Specific Gravity, Urine <= 1.005 (1.005-1.030); Urobilinogen,Urine 0.2 EU/dl (0.2)
--- NOTE | 2024-09-11 15:56 | PC.NURSE ---
at bedside with jalil tse
--- NOTE | 2024-09-11 15:57 | US_ITS ---
PROCEDURE INFORMATION: Exam: US Scrotum Exam date and time: 09/11/2024 4:00 PM Age: 44 years old Clinical indication: Scrotum pain; Additional info: Right testicle pain TECHNIQUE: Imaging protocol: Real-time ultrasound of the scrotum and contents with color Doppler and image documentation. COMPARISON: CT ABDOMEN PELVIS W CON 09/11/2024 3:09 PM FINDINGS: Right testicle: Normal. No mass. Normal color Doppler and arterial waveforms. No torsion. Left testicle: Normal. No mass. Normal color Doppler and arterial waveforms. No torsion. Epididymides: Normal. Scrotum/soft tissues: No hydrocele detected. No varicocele. (Technologist questioned bilateral inguinal hernias containing bowel loops but this was not confirmed on same day CT exam.) IMPRESSION: Normal scrotal ultrasound.
[2024-09-11 16:01] LABS: HIV Combo NEGATIVE (Negative)
[2024-09-11 16:09] LABS: Hepatitis C Ab Qual. W/ RFX NEGATIVE (Negative)
[2024-09-11 16:19] LABS: Bacteria,Urine Trace /lpf; WBC,Urine Occasional #/hpf (0-3)
--- NOTE | 2024-09-11 16:39 | PC.NURSE ---
pt returned to room
[2024-09-11 17:23] VITALS: BP 155/123; PULSE 73; RESP 17; TEMP 36.7; O2SAT 98
== END 2024-09-11 17:26 | disposition home or self-care (01) ==
PROVIDERS: Physician Assistant; Emergency Provider Emergency Medicine
DX: M54.17 Radiculopathy, lumbosacral region (principal); M54.50 Low back pain, unspecified; G89.29 Other chronic pain; N50.811 Right testicular pain; F17.210 Nicotine dependence, cigarettes, uncomplicated; I10 Essential (primary) hypertension; Z11.59 Encounter for screening for other viral diseases; Z11.4 Encounter for screening for human immunodeficiency virus [HIV]
CPT/HCPCS: 74177; 76870; 80053; 81001; 83605; 84145; 85025; 85610; 86803; 87389; 96374; 96375; 99285; J1100; J1885; J2060; J2405; Q9967

== ENCOUNTER 2024-09-14 14:34 | Day surgery (SDC) | payer MEDICAID, SELFPAY ==
--- NOTE | 2024-09-14 14:43 | P.HP_ITS ---
History of Present Illness *Admission Date: 09/14/24 *Reason for visit:: Intrathecal refill; DDD *History of present illness: Degenerative disc disease [facility] Disclaimer: The information contained in this section may have been updated after the patient was seen, as this information can be updated by other users. Medical History Asthma DDD (degenerative disc disease), lumbar GERD (gastroesophageal reflux disease) HTN (hypertension) Surgical History H/O knee surgery H/O lumbar discectomy H/O shoulder surgery History of appendectomy History of placement of ear tubes Hx of resection of small bowel Family History Other Colon cancer Family history of diabetes mellitus type II Family history of myocardial infarction Family history of stroke Social History Smoking Status: Current every day smoker tobacco type: cigarettes packs per day: 1 alcohol intake: never substance use type: denies use current occupational status: other Travel in the last 8 weeks?: None household members: significant other housing: house lives independently: Yes marital status: single education level: college service: No caffeine: Yes special vimal needs: No agree to transfusion: No do you feel safe at home: Yes victim of physical abuse: No victim of emotional abuse: No victim of sexual abuse: No would you like helpful sources: No Have you lived/traveled outside [place] in past 30 days?: No Contact w/someone who lives/traveled outside US past 30 days?: No Exposure to someone with infectious disease in past 14 days?: No Do you have a fever (greater than 100.4 F or 38 C)?: No Have you tested positive for COVID-19?: No Exposed to someone with COVID-19 in past 14 days?: No Do you have a sore throat?: No Do you have a cough?: No Do you have any weakness?: No Do you have any diarrhea?: No Are you experiencing any unusual bleeding?: No Do you have any muscle aches/pain?: No Do you have any abdominal pain?: No Are you experiencing loss of taste or smell?: No Other Medical History Have you received the Flu Vaccine for this season: No Have you received the Pneumonia Vaccine: No Review of Systems Review of Systems Review of systems:: pertinent systems reviewed and negative unless documented below Review of systems (narrative): Review of Systems: General: No recent weight changes, no fever, no sleep disturbances Respiratory: No cough, no shortness of air, no recurring pulmonary infections Cardiovascular/peripheral vascular: No chest pain, no palpitations, no edema, no shortness of breath Gastrointestinal: No new onset incontinence, normal bowel movements reported Genitourinary: No new onset incontinence Musculoskeletal: Chronic back pain Psychiatric: [Normal mood/affect] Neurological: [Denies weakness in extremities], [denies balance issues] Meds Home Medications and Allergies Home Medications ?Medication ?Instructions ?Recorded ?Confirmed ?Type amlodipine 10 mg tablet 10 mg PO DAILY BLOOD PRESSURE 07/30/22 09/10/24 History omeprazole 40 mg capsule,delayed 40 mg PO DAILY GERD 07/30/22 09/10/24 History release diazepam 5 mg tablet 5 mg PO BID Anxiety 01/12/23 09/10/24 History paroxetine HCl 30 mg tablet 30 mg PO DAILY mood 01/12/23 09/10/24 History lidocaine 5 % topical patch 1 patch topical DAILY #30 ea 06/22/23 09/10/24 Rx naproxen 500 mg tablet 500 mg PO BID Pain #60 tabs 06/22/23 09/10/24 Rx fentanyl (PF) 5 mcg/mL in 0.9 % 250 mcg epidural CONT Pain 07/27/23 09/10/24 History sodium chloride intravenous New Prescriptions to Start Prescriptions: Allergies Allergy/AdvReac Type Severity Reaction Status Date / Time No Known Allergies Allergy Verified 06/29/24 10:01 Exam Constitutional Constitutional: no acute distress *Routine HEENT Exam Head: Present normocephalic and atraumatic Eye: Present PERRL ENT: Present mucous membranes moist *Routine Neck Exam Neck: Present supple *Routine Respiratory Exam Respiratory: Present CTA bilaterally *Routine Cardiovascular Exam Cardiovascular: Present RRR *Routine Abdominal Exam Abdominal: Present soft *Routine Rectal Exam Rectal:: deferred *Routine Genitalia Exam Genitalia:: normal male Routine Back/Spine/Pelvis Exam Back/Spine: Present pain with flexion *Routine Skin Exam Skin: Present intact, dry and warm *Routine Neurological Exam Neurological: Present alert and oriented X3 Routine Psychiatric Exam Psychiatric: Present normal affect and normal thought process Assessment and Plan *Assessment and plan (1) Degenerative disc disease, lumbar: Status: Acute Category: Medical Code(s): M51.369 - Other intervertebral disc degeneration, lumbar region without mention of lumbar back pain or lower extremity pain (2) Low back pain: Status: Acute Category: Medical Code(s): M54.50 - Low back pain, unspecified Plan Patient has been instructed to contact the clinic with any concerns before the next appointment. Dr. Ceron has reviewed this note and agrees with this plan of care. This note was dictated using voice recognition software and make contain errors or omissions. All injections are used with Lidocaine, Bupivacaine and dexamethasone. Occasionally urine drug screen is needed to verify patient's compliance with our office pain contract. This is ordered based off specific treatments related to chronic pain with the potential to abuse certain medications.
--- NOTE | 2024-09-14 14:45 | P.PCN_ITS ---
Procedure Date: 09/14/24 Time: 15:29 Anesthesiologist:: Vivien Dobbs APRN Complications:: None Pre-procedure Diagnosis:: Degenerative disc disease of lumbar spine with lumbar radiculopathy symptoms, chronic pain syndrome Post-procedure Diagnosis:: Same Indications for Procedure:: Patient is a pleasant 44-year-old male who presents today for intrathecal refill and reprogram. Today he rates his pain a 10 out of 10. Patient states when he left our office the other day he ended up having to run multiple errands and was driving a lot and ended up having significant pain. He states he ended at contacting his neurosurgeon and they recommended him going to the ER. He states he ended up coming up here and that the pain was just unbearable and continues to be unbearable. He does state that he did hear from the scientific specialist and that he is seeing Dr. Thacker on Tuesday at 9 AM. Patient does have questions regarding the possibility of the lumbar decompression procedure. Patient is scheduled for an epidural coming up in September. Patient does state he is still having the chronic pain in his low back and legs that is worse with increased walking or activity. He does state it is interfering with his ability perform activities of daily living such as cooking and cleaning. Patient is currently managed with fentanyl 250 mcg/mL with a daily dose of 111 mcg/day. He is requesting an increase.He is prescribed compounded cream from our office and gabapentin from an outside provider. His Benitez has been reviewed. Physical Exam: General: Alert and oriented x3, no acute distress, pleasant and cooperative Lungs: Respirations even and unlabored, symmetrical chest expansion Eyes: PERRL Musculoskeletal: Flexion and extension of lumbar [spine] somewhat guarded secondary to pain, [antalgic gait noted] Neurological: Speech clear, no gross sensory deficit Procedure Details:: Informed consent was obtained and the risk and benefits of the procedure were explained to the patient. The patient had noninvasive monitoring placed inclu ding noninvasive blood pressure cuff and pulse oximeter. Patient's pump was interrogated. The area over the pump was cleansed with chlorhexidine as a cleansing solution. In sterile fashion the pump was accessed with a 22-gauge needle. Approximately 12 mls of the pump solution was removed and discarded appropriately. The pump was then refilled with 20 mL's of fentanyl 250 mcg/mL. The needle was withdrawn and a bandage was placed over the puncture site. The infusion rate was reprogrammed and increased to fentanyl 122.18 mcg/day. The patient tolerated well with no complication. Plan and Disposition:: Patient tolerated the procedure well with no complications and was discharged neurologically intact. I did discuss with the patient risk and benefits of the minimally invasive lumbar decompression did discuss with the patient that he does have symptoms consistent with spinal stenosis with neurogenic claudication symptoms. I did career guidance counselor him that a lot of it would depend on what the scientific specialist states and whether or not they were recommending surgical intervention. Patient acknowledges understanding. I will change his upcoming epidural to include an epidurogram in order to see whether or not if he is a candidate of the mild procedure. We will plan on still submitting for the LESI L5-S1 under fluoroscopy. We will plan to make sure that this procedure is done with Dr. Ceron on his next stay here at the hospital. Patient will return to clinic on or before their next intrathecal refill date. We will see the patient back in the clinic at the next intrathecal refill. Patient has been instructed to contact the clinic with any concerns before the next appointment. Dr. Ceron has reviewed this note and agrees with this plan of care. This note was dictated using voice recognition software and make contain errors or omissions. -- It Is medically necessary for this patient to continue to have their intrathecal pump refilled at regular intervals. This patient had an intrathecal pain pump implanted after meeting criteria of chronic intractable pain for greater than 3 months and failing conservative treatments. Patient has committed and been compliant to the treatment plan and all planned follow up care. Since implantation of the intrathecal pain pump, the patient has had decreased pain and been more functional. Oral medications have been reduced including intake of oral opioids. Patient continues to do well with intrathecal therapy with decrease in pain symptoms and increase in functional status. Stopping in trathecal medications can lead to life threatening withdrawal, seizures, cardiac arrest, severe pain, and possible . Pumps that are not refilled at regular intervals can be damages and cause and need for replacement. We continually titrate dose and concentration to optimize pain relief and function. We are limited in concentration for certain drugs to safely deliver medications through the pump and stay within the recommendations from the Polyanalgesic Consensus Committee Guidelines. Depending on dose and concentration these pumps may need to be refilled sooner than 3 months as we titrate. A UDS is needed to verify patient's compliance with our office pain contract. This is ordered based off specific treatments related to chronic pain with the potential to abuse certain medications.
[2024-09-14 14:51] VITALS: BP 133/92; PULSE 100; RESP 16; O2SAT 94; BMI 32.3
[2024-09-14 15:26] VITALS: BP 133/92; PULSE 100; RESP 18; O2SAT 95
[2024-09-14 15:41] VITALS: BP 136/91; PULSE 88; RESP 16; O2SAT 95
== END 2024-09-14 15:41 | disposition home or self-care (01) ==
PROVIDERS: Visit Provider Nurse Practitioner Family
DX: M51.16 Intervertebral disc disorders with radiculopathy, lumbar region (principal); G89.4 Chronic pain syndrome; Z73.89 Other problems related to life management difficulty
CPT/HCPCS: 62370; 99212; G0463

== ENCOUNTER 2024-10-05 13:24 | Day surgery (SDC) | payer MEDICAID, SELFPAY ==
[2024-10-05 13:34] VITALS: BP 151/94; PULSE 92; RESP 16; O2SAT 95; BMI 31.5
[2024-10-05] MEDS: DEXAMETHASONE 10MG/ML 1ML VIAL 10 MG (13:52)
[2024-10-05] MEDS: LIDOCAINE 1% 30ML PF VIAL 30 ML (13:52)
[2024-10-05 13:53] VITALS: BP 160/95; PULSE 96; RESP 18; O2SAT 97
[2024-10-05 13:55] VITALS: BP 160/95; RESP 18; O2SAT 97
--- NOTE | 2024-10-05 13:56 | P.PCN_ITS ---
Procedure Date: 10/05/24 Time: 13:56 Anesthesiologist:: Baljinder Ceron MD Complications:: None Pre-procedure Diagnosis:: Postlaminectomy syndrome lumbar spine with lumbar radiculopathy symptoms Post-procedure Diagnosis:: Same Indications for Procedure:: This patient is a pleasant 44-year-old white male who we have been treating for postlaminectomy syndrome lumbar spine with lumbar radiculopathy symptoms. He does have a fusion from L3-L4. He has increasing pain in his back radiating down both legs. He has seen Dr. Spears at . He was told he may need an extension of his fusion. He is scheduled to start physical therapy. We will go ahead and do this lumbar epidural steroid injection with epidurogram at L5-S1 to see if this will help with his pain symptoms. Procedure Details:: Informed consent was obtained and the risk and benefits of the procedure was explained to the patient. The patient was taken to the procedure room. The patient was placed prone on the procedure table. The patient was prepped and draped in sterile fashion. C-arm fluoroscopy was used to view the lumbar spine. Skin and subcutaneous tissues were anesthetized using lidocaine. I placed an 18-gauge epidural needle and advanced into the L5-S1 interspace using fluoroscopic guidance and [id number] to air. After confirmation of needle placement in the epidural space with dye I injected 2 mL of lidocaine 1.5% with dexamethasone 10 mg. Patient tolerated the procedure well with no complications. Plan and Disposition:: Will follow-up with this patient in 2 weeks to evaluate efficacy of this in jection. We only anticipate temporary relief with this injection to allow him to do physical therapy. We will defer to Dr. Spears to evaluate him for surgery and he most likely will need an extension of his fusion. He also does need a total knee replacement.
[2024-10-05] MEDS: IOPAMIDOL-200 (41%);10ML VIAL 3 ML IV (13:58)
[2024-10-05 14:15] VITALS: BP 148/87; PULSE 85; RESP 16; O2SAT 97
== END 2024-10-05 14:15 | disposition home or self-care (01) ==
PROVIDERS: Visit Provider Anesthesiology
DX: M51.16 Intervertebral disc disorders with radiculopathy, lumbar region (principal); M96.1 Postlaminectomy syndrome, not elsewhere classified; K21.9 Gastro-esophageal reflux disease without esophagitis; J45.909 Unspecified asthma, uncomplicated; I10 Essential (primary) hypertension; F17.210 Nicotine dependence, cigarettes, uncomplicated; Z98.1 Arthrodesis status; Z79.899 Other long term (current) drug therapy; Z80.0 Family history of malignant neoplasm of digestive organs; Z90.49 Acquired absence of other specified parts of digestive tract
CPT/HCPCS: 64483; J1100; J2003; Q9966

== ENCOUNTER 2024-10-12 11:41 | Day surgery (SDC) | payer MEDICAID, SELFPAY ==
[2024-10-12 11:55] VITALS: BP 142/98; PULSE 112; RESP 18; O2SAT 98; BMI 30.7
--- NOTE | 2024-10-12 11:57 | EXP.PM.HP ---
History of Present Illness *Admission Date: 10/12/24 *Reason for visit:: Degenerative disc disease, intrathecal refill *History of present illness: Same [facility] Disclaimer: The information contained in this section may have been updated after the patient was seen, as this information can be updated by other users. Medical History Asthma DDD (degenerative disc disease), lumbar GERD (gastroesophageal reflux disease) HTN (hypertension) Surgical History H/O knee surgery H/O lumbar discectomy H/O shoulder surgery History of appendectomy History of placement of ear tubes Hx of resection of small bowel Family History Other Colon cancer Family history of diabetes mellitus type II Family history of myocardial infarction Family history of stroke Social History Smoking Status: Current every day smoker tobacco type: cigarettes packs per day: 1 alcohol intake: never substance use type: denies use current occupational status: other Travel in the last 8 weeks?: None household members: significant other housing: house lives independently: Yes marital status: single education level: college service: No caffeine: Yes special vimal needs: No agree to transfusion: No do you feel safe at home: Yes victim of physical abuse: No victim of emotional abuse: No victim of sexual abuse: No would you like helpful sources: No Have you lived/traveled outside [place] in past 30 days?: No Contact w/someone who lives/traveled outside [place] past 30 days?: No Exposure to someone with infectious disease in past 14 days?: No Do you have a fever (greater than 100.4 F or 38 C)?: No Have you tested positive for COVID-19?: No Exposed to someone with COVID-19 in past 14 days?: No Do you have a sore throat?: No Do you have a cough?: No Do you have any weakness?: No Do you have any diarrhea?: No Are you experiencing any unusual bleeding?: No Do you have any muscle aches/pain?: No Do you have any abdominal pain?: No Are you experiencing loss of taste or smell?: No Other Medical History Have you received the Flu Vaccine for this season: No Have you received the Pneumonia Vaccine: No Review of Systems Review of Systems Review of systems:: pertinent systems reviewed and negative unless documented below Review of systems (narrative): Review of Systems: General: No recent weight changes, no fever, no sleep disturbances Respiratory: No cough, no shortness of air, no recurring pulmonary infections Cardiovascular/peripheral vascular: No chest pain, no palpitations, no edema, no shortness of breath Gastrointestinal: No new onset incontinence, normal bowel movements reported Genitourinary: No new onset incontinence Musculoskeletal: Chronic back pain Psychiatric: [Normal mood/affect] Neurological: [Denies weakness in extremities], [denies balance issues] Meds Home Medications and Allergies Home Medications ?Medication ?Instructions ?Recorded ?Confirmed ?Type amlodipine 10 mg tablet 10 mg PO DAILY BLOOD PRESSURE 07/30/22 10/12/24 History omeprazole 40 mg capsule,delayed 40 mg PO DAILY GERD 07/30/22 10/12/24 History release diazepam 5 mg tablet 5 mg PO BID Anxiety 01/12/23 10/12/24 History paroxetine HCl 30 mg tablet 30 mg PO DAILY mood 01/12/23 10/12/24 History lidocaine 5 % topical patch 1 patch topical DAILY #30 ea 06/22/23 10/12/24 Rx naproxen 500 mg tablet 500 mg PO BID Pain #60 tabs 06/22/23 10/12/24 Rx fentanyl (PF) 5 mcg/mL in 0.9 % 250 mcg epidural CONT Pain 07/27/23 10/12/24 History sodium chloride intravenous New Prescriptions to Start Prescriptions: Allergies Allergy/AdvReac Type Severity Reaction Status Date / Time No Known Allergies Allergy Verified 06/29/24 10:01 Exam Constitutional Constitutional: no acute distress *Routine HEENT Exam Head: Present normocephalic and atraumatic Eye: Present PERRL ENT: Present mucous membranes moist *Routine Neck Exam Neck: Present supple *Routine Respiratory Exam Respiratory: Present CTA bilaterally *Routine Cardiovascular Exam Cardiovascular: Present RRR *Routine Abdominal Exam Abdominal: Present soft *Routine Rectal Exam Rectal:: deferred *Routine Genitalia Exam Genitalia:: deferred Routine Back/Spine/Pelvis Exam Back/Spine: Present pain with flexion *Routine Skin Exam Skin: Present intact and warm *Routine Neurological Exam Neurological: Present alert and oriented X3 Routine Psychiatric Exam Psychiatric: Present normal affect and normal thought process Assessment and Plan *Assessment and plan (1) Lumbar radiculopathy: Status: Acute Category: Medical Code(s): M54.16 - Radiculopathy, lumbar region (2) Degenerative disc disease, lumbar: Status: Acute Category: Medical Code(s): M51.369 - Other intervertebral disc degeneration, lumbar region without mention of lumbar back pain or lower extremity pain Plan Patient has been instructed to contact the clinic with any concerns before the next appointment. Dr. Ceron has reviewed this note and agrees with this plan of care. This note was dictated using voice recognition software and make contain errors or omissions. All injections are used with Lidocaine, Bupivacaine and dexamethasone. Occasionally urine drug screen is needed to verify patient's compliance with our office pain contract. This is ordered based off specific treatments related to chronic pain with the potential to abuse certain medications.
--- NOTE | 2024-10-12 12:10 | EXP.PAIN.PRO ---
Procedure Date: 10/12/24 Time: 12:31 Anesthesiologist:: Vivien Dobbs APRN Complications:: None Pre-procedure Diagnosis:: Degenerative disc disease of lumbar spine with lumbar radiculopathy symptoms, chronic pain syndrome Post-procedure Diagnosis:: Same Indications for Procedure:: Patient is a pleasant 44-year-old male who presents today for intrathecal refill and reprogram. Today he rates his pain a 9 out of 10. Patient denies any recent falls. He states that the epidural he did not notice any additional improvement with. He is still planning on seeing Dr. Smith floor they are at for the possibility of additional surgery. Patient states that he just feels like overall his pain has just continued to worsen to where he is in such severe pain on a regular basis. Patient is currently managed with fentanyl 122.18 mcg/day. He is requesting an increase. His Benitez has been reviewed and is appropriate. Physical Exam: General: Alert and oriented x3, no acute distress, pleasant and cooperative Lungs: Respirations even and unlabored, symmetrical chest expansion Eyes: PERRL Musculoskeletal: Flexion and extension of lumbar [spine] somewhat guarded secondary to pain, [antalgic gait noted] Neurological: Speech clear, no gross sensory deficit Procedure Details:: Informed consent was obtained and the risk and benefits of the procedure were explained to the patient. The patient had noninvasive monitoring placed including noninvasive blood pressure cuff and pulse oximeter. Patient's pump was interrogated. The area over the pump was cleansed with chlorhexidine as a cleansing solution. In sterile fashion the pump was accessed with a 22-gauge needle. Approximately 6 mls of the pump solution was removed and discarded appropriately. The pump was then refilled with 20 mL's of fentanyl 250 mcg/mL. The needle was withdrawn and a bandage was placed over the puncture site. The infusion rate was reprogrammed and increased to 140.59 mcg/day the patient tolerated well with no complication. Plan and Disposition:: Patient tolerated the procedure well with no complications and was discharged neurologically intact. Patient will return to clinic on or before their next intrathecal refill date. We will see the patient back in the clinic at the next intrathecal refill. Patient has been instructed to contact the clinic with any concerns before the next appointment. Dr. Ceron has reviewed this note and agrees with this plan of care. This note was dictated using voice recognition software and make contain errors or omissions. -- It Is medically necessary for this patient to continue to have their intrathecal pump refilled at regular intervals. This patient had an intrathecal pain pump implanted after meeting criteria of chronic intractable pain for greater than 3 months and failing conservative treatments. Patient has committed and been compliant to the treatment plan and all planned follow up care. Since implantation of the intrathecal pain pump, the patient has had decreased pain and been more functional. Oral medications have been reduced including intake of oral opioids. Patient continues to do well with intrathecal therapy with decrease in pain symptoms and increase in functional status. Stopping intrathecal medications can lead to life threatening withdrawal, seizures, cardiac arrest, severe pain, and possible . Pumps that are not refilled at regular intervals can be damages and cause and need for replacement. We continually titrate dose and concentration to optimize pain relief and function. We are limited in concentration for certain drugs to safely deliver medications through the pump and stay within the recommendations from the Polyanalgesic Consensus Committee Guidelines. Depending on dose and concentration these pumps may need to be refilled sooner than 3 months as we titrate. A UDS is needed to verify patient's compliance with our office pain contract. This is ordered based off specific treatments related to chronic pain with the potential to abuse certain medications.
[2024-10-12 12:28] VITALS: BP 164/91; PULSE 91; RESP 18; O2SAT 98
[2024-10-12 12:41] VITALS: BP 153/91; PULSE 78; RESP 16; O2SAT 91
== END 2024-10-12 12:41 | disposition home or self-care (01) ==
PROVIDERS: Visit Provider Nurse Practitioner Family
DX: Z45.1 Encounter for adjustment and management of infusion pump (principal); M51.16 Intervertebral disc disorders with radiculopathy, lumbar region; G89.4 Chronic pain syndrome; K21.9 Gastro-esophageal reflux disease without esophagitis; I10 Essential (primary) hypertension; F17.210 Nicotine dependence, cigarettes, uncomplicated; Z79.1 Long term (current) use of non-steroidal anti-inflammatories (NSAID); Z79.899 Other long term (current) drug therapy
CPT/HCPCS: 62370

== ENCOUNTER 2024-11-09 08:44 | Day surgery (SDC) | payer MEDICARE, MEDICAID, SELFPAY ==
--- NOTE | 2024-11-09 08:47 | EXP.PM.HP ---
History of Present Illness *Admission Date: 11/09/24 *Reason for visit:: Intrathecal refill; DDD *History of present illness: Same [facility] Disclaimer: The information contained in this section may have been updated after the patient was seen, as this information can be updated by other users. Medical History Asthma DDD (degenerative disc disease), lumbar GERD (gastroesophageal reflux disease) HTN (hypertension) Surgical History H/O knee surgery H/O lumbar discectomy H/O shoulder surgery History of appendectomy History of placement of ear tubes Hx of resection of small bowel Family History Other Colon cancer Family history of diabetes mellitus type II Family history of myocardial infarction Family history of stroke Social History Smoking Status: Current every day smoker tobacco type: cigarettes packs per day: 1 alcohol intake: never substance use type: denies use current occupational status: other Travel in the last 8 weeks?: None household members: significant other housing: house lives independently: Yes marital status: single education level: college service: No caffeine: Yes special vimal needs: No agree to transfusion: No do you feel safe at home: Yes victim of physical abuse: No victim of emotional abuse: No victim of sexual abuse: No would you like helpful sources: No Have you lived/traveled outside [place] in past 30 days?: No Contact w/someone who lives/traveled outside US past 30 days?: No Exposure to someone with infectious disease in past 14 days?: No Do you have a fever (greater than 100.4 F or 38 C)?: No Have you tested positive for COVID-19?: No Exposed to someone with COVID-19 in past 14 days?: No Do you have a sore throat?: No Do you have a cough?: No Do you have any weakness?: No Do you have any diarrhea?: No Are you experiencing any unusual bleeding?: No Do you have any muscle aches/pain?: No Do you have any abdominal pain?: No Are you experiencing loss of taste or smell?: No Other Medical History Have you received the Flu Vaccine for this season: No Have you received the Pneumonia Vaccine: No Review of Systems Review of Systems Review of systems:: pertinent systems reviewed and negative unless documented below Review of systems (narrative): Review of Systems: General: No recent weight changes, no fever, no sleep disturbances Respiratory: No cough, no shortness of air, no recurring pulmonary infections Cardiovascular/peripheral vascular: No chest pain, no palpitations, no edema, no shortness of breath Gastrointestinal: No new onset incontinence, normal bowel movements reported Genitourinary: No new onset incontinence Musculoskeletal: Chronic back pain Psychiatric: [Normal mood/affect] Neurological: [Denies weakness in extremities], [denies balance issues] Meds Home Medications and Allergies Home Medications ?Medication ?Instructions ?Recorded ?Confirmed ?Type amlodipine 10 mg tablet 10 mg PO DAILY BLOOD PRESSURE 07/30/22 10/12/24 History omeprazole 40 mg capsule,delayed 40 mg PO DAILY GERD 07/30/22 10/12/24 History release diazepam 5 mg tablet 5 mg PO BID Anxiety 01/12/23 10/12/24 History paroxetine HCl 30 mg tablet 30 mg PO DAILY mood 01/12/23 10/12/24 History lidocaine 5 % topical patch 1 patch topical DAILY #30 ea 06/22/23 10/12/24 Rx fentanyl (PF) 5 mcg/mL in 0.9 % 250 mcg epidural CONT Pain 07/27/23 10/12/24 History sodium chloride intravenous naproxen 500 mg tablet 500 mg PO BID Pain #60 tabs 10/24/24 Rx New Prescriptions to Start Prescriptions: Allergies Allergy/AdvReac Type Severity Reaction Status Date / Time No Known Allergies Allergy Verified 06/29/24 10:01 Exam Constitutional Constitutional: no acute distress *Routine HEENT Exam Head: Present normocephalic and atraumatic Eye: Present PERRL ENT: Present mucous membranes moist *Routine Neck Exam Neck: Present supple *Routine Respiratory Exam Respiratory: Present CTA bilaterally *Routine Cardiovascular Exam Cardiovascular: Present RRR *Routine Abdominal Exam Abdominal: Present soft *Routine Rectal Exam Rectal:: deferred *Routine Genitalia Exam Genitalia:: deferred Routine Back/Spine/Pelvis Exam Back/Spine: Present pain with flexion and pain with rotation *Routine Skin Exam Skin: Present intact, dry and warm *Routine Neurological Exam Neurological: Present alert and oriented X3 Routine Psychiatric Exam Psychiatric: Present normal affect and normal thought process Assessment and Plan *Assessment and plan (1) Lumbar radiculopathy: Status: Acute Category: Medical Code(s): M54.16 - Radiculopathy, lumbar region (2) Degenerative disc disease, lumbar: Status: Acute Category: Medical Code(s): M51.369 - Other intervertebral disc degeneration, lumbar region without mention of lumbar back pain or lower extremity pain Plan Patient has been instructed to contact the clinic with any concerns before the next appointment. Dr. Ceron has reviewed this note and agrees with this plan of care. This note was dictated using voice recognition software and make contain errors or omissions. All injections are used with Lidocaine, Bupivacaine and dexamethasone. Occasionally urine drug screen is needed to verify patient's compliance with our office pain contract. This is ordered based off specific treatments related to chronic pain with the potential to abuse certain medications.
--- NOTE | 2024-11-09 08:49 | P.PCN_ITS ---
Procedure Date: 11/09/24 Time: 08:55 Anesthesiologist:: Vivien Dobbs APRN Complications:: None Pre-procedure Diagnosis:: Degenerative disc disease of the lumbar spine with lumbar radiculopathy symptoms, chronic back pain Post-procedure Diagnosis:: Same Indications for Procedure:: Patient is a pleasant 44-year-old male who presents today for intrathecal refill and reprogram. Today he rates his pain a 5 out of 10. He denies any new falls or injuries. He does state that they are proceeding forward with most likely additional surgery for his back. He states that it will be very extensive due to his previous surgeries and that they are talking about going through the abdomen. He does state that the neurosurgeon did want him to talk to Dr. Herr regarding postop pain management. Patient is currently managed with fentanyl 250 mcg/day with a daily dose of 140.59 mcg/day. He denies any side effects. He is requesting an increase. He states the pain is just continued to get more severe and it is affecting his sleeping.He has also prescribed compounded cream. His Benitez has been reviewed. Physical Exam: General: Alert and oriented x3, no acute distress, pleasant and cooperative Lungs: Respirations even and unlabored, symmetrical chest expansion Eyes: PERRL Musculoskeletal: Flexion and extension of lumbar [spine] somewhat guarded secondary to pain, [antalgic gait noted] Neurological: Speech clear, no gross sensory deficit Procedure Details:: Informed consent was obtained and the risk and benefits of the procedure were explained to the patient. The patient had noninvasive monitoring placed including noninvasive blood pressure cuff and pulse oximeter. Patient's pump was interrogated. The area over the pump was cleansed with chlorhexidine as a cleansing solution. In sterile fashion the pump was accessed with a 22-gauge needle. Approximately 3.7 mls of the pump solution was removed and discarded appropriately. The pump was then refilled with 20 mL's of fentanyl 500 mcg/day. The needle was withdrawn and a bandage was placed over the puncture site. The infusion rate was reprogrammed and increased 10% to fentanyl 154.48 mcg/day. The patient tolerated well with no complication. Plan and Disposition:: Patient tolerated the procedure well with no complications and was discharged neurologically intact. Patient did have a concentration change today and he was counseled that he would not be able to use his bolus device while it is changing over. Patient acknowledges understanding agrees with this plan of care. Dr. Ceron did discuss postop pain management with him. Patient will return to clinic on or before their next intrathecal refill date. We will see the patient back in the clinic at the next intrathecal refill. Patient has been instructed to contact the clinic with any concerns before the next appointment. Dr. Ceron has reviewed this note and agrees with this plan of care. This note was dictated using voice recognition software and make contain errors or omissions. -- It Is medically necessary for this patient to continue to have their intrathecal pump refilled at regular intervals. This patient had an intrathecal pain pump implanted after meeting criteria of chronic intractable pain for greater than 3 months and failing conservative treatments. Patient has committed and been compliant to the treatment plan and all planned follow up care. Since implantation of the intrathecal pain pump, the patient has had decreased pain and been more functional. Oral medications have been reduced including intake of oral opioids. Patient continues to do well with intrathecal therapy with decrease in pain symptoms and increase in functional status. Stopping intrathecal medications can lead to life threatening withdrawal, seizures, cardi ac arrest, severe pain, and possible . Pumps that are not refilled at regular intervals can be damages and cause and need for replacement. We continually titrate dose and concentration to optimize pain relief and function. We are limited in concentration for certain drugs to safely deliver medications through the pump and stay within the recommendations from the Polyanalgesic Consensus Committee Guidelines. Depending on dose and concentration these pumps may need to be refilled sooner than 3 months as we titrate. A UDS is needed to verify patient's compliance with our office pain contract. This is ordered based off specific treatments related to chronic pain with the potential to abuse certain medications.
[2024-11-09 08:50] VITALS: BP 143/95; PULSE 101; RESP 18; O2SAT 96; BMI 31.0
[2024-11-09 08:57] VITALS: BP 143/85; PULSE 103; RESP 18; O2SAT 96
[2024-11-09 09:11] VITALS: BP 147/96; PULSE 88; RESP 18; O2SAT 97
== END 2024-11-09 09:11 | disposition home or self-care (01) ==
PROVIDERS: Visit Provider Nurse Practitioner Family
DX: Z45.1 Encounter for adjustment and management of infusion pump (principal); M51.16 Intervertebral disc disorders with radiculopathy, lumbar region; G89.29 Other chronic pain; K21.9 Gastro-esophageal reflux disease without esophagitis; I10 Essential (primary) hypertension; F17.210 Nicotine dependence, cigarettes, uncomplicated; Z79.899 Other long term (current) drug therapy
CPT/HCPCS: 95991

== ENCOUNTER 2024-12-21 11:45 | Day surgery (SDC) | payer MEDICARE, SELFPAY ==
--- NOTE | 2024-12-21 11:49 | EXP.PM.HP ---
History of Present Illness *Admission Date: 12/21/24 *Reason for visit:: Intrathecal refill; DDD *History of present illness: Same [facility] Disclaimer: The information contained in this section may have been updated after the patient was seen, as this information can be updated by other users. Medical History Asthma DDD (degenerative disc disease), lumbar GERD (gastroesophageal reflux disease) HTN (hypertension) Surgical History H/O knee surgery H/O lumbar discectomy H/O shoulder surgery History of appendectomy History of placement of ear tubes Hx of resection of small bowel Family History Other Colon cancer Family history of diabetes mellitus type II Family history of myocardial infarction Family history of stroke Social History Smoking Status: Current every day smoker tobacco type: cigarettes packs per day: 1 pack-years: 20 alcohol intake: never substance use type: denies use current occupational status: other Travel in the last 8 weeks?: None household members: significant other housing: house lives independently: Yes marital status: single education level: college service: No caffeine: Yes special vimal needs: No agree to transfusion: No do you feel safe at home: Yes victim of physical abuse: No victim of emotional abuse: No victim of sexual abuse: No would you like helpful sources: No Have you lived/traveled outside [place] in past 30 days?: No Contact w/someone who lives/traveled outside [place] past 30 days?: No Exposure to someone with infectious disease in past 14 days?: No Do you have a fever (greater than 100.4 F or 38 C)?: No Have you tested positive for COVID-19?: No Exposed to someone with COVID-19 in past 14 days?: No Do you have a sore throat?: No Do you have a cough?: No Do you have any weakness?: No Do you have any diarrhea?: No Are you experiencing any unusual bleeding?: No Do you have any muscle aches/pain?: No Do you have any abdominal pain?: No Are you experiencing loss of taste or smell?: No Other Medical History Have you received the Flu Vaccine for this season: No Have you received the Pneumonia Vaccine: No Meds Home Medications and Allergies Home Medications ?Medication ?Instructions ?Recorded ?Confirmed ?Type amlodipine 10 mg tablet 10 mg PO DAILY BLOOD PRESSURE 07/30/22 11/09/24 History omeprazole 40 mg capsule,delayed 40 mg PO DAILY GERD 07/30/22 11/09/24 History release diazepam 5 mg tablet 5 mg PO BID Anxiety 01/12/23 11/09/24 History paroxetine HCl 30 mg tablet 30 mg PO DAILY mood 01/12/23 11/09/24 History lidocaine 5 % topical patch 1 patch topical DAILY #30 ea 06/22/23 11/09/24 Rx fentanyl (PF) 5 mcg/mL in 0.9 % 250 mcg epidural CONT Pain 07/27/23 11/09/24 History sodium chloride intravenous naproxen 500 mg tablet 500 mg PO BID Pain #60 tabs 10/24/24 11/09/24 Rx New Prescriptions to Start Prescriptions: Allergies Allergy/AdvReac Type Severity Reaction Status Date / Time No Known Allergies Allergy Verified 06/29/24 10:01 Exam *Routine HEENT Exam Head: Present normocephalic and atraumatic Eye: Present PERRL ENT: Present mucous membranes moist *Routine Neck Exam Neck: Present supple *Routine Respiratory Exam Respiratory: Present CTA bilaterally *Routine Cardiovascular Exam Cardiovascular: Present RRR *Routine Abdominal Exam Abdominal: Present soft *Routine Rectal Exam Rectal:: deferred *Routine Genitalia Exam Genitalia:: deferred Routine Back/Spine/Pelvis Exam Back/Spine: Present pain with flexion *Routine Skin Exam Skin: Present intact and warm *Routine Neurological Exam Neurological: Present alert and oriented X3
--- NOTE | 2024-12-21 11:50 | P.PCN_ITS ---
Procedure Date: 12/21/24 Time: 12:00 Anesthesiologist:: Vivien Dobbs APRN Complications:: None Pre-procedure Diagnosis:: Degenerative disc disease of lumbar spine with lumbar radiculopathy symptoms Post-procedure Diagnosis:: Same Indications for Procedure:: Patient is a pleasant 44-year-old male who presents today for intrathecal refill and reprogram. He does state that he continues to have more severe pain on a daily basis. He states that the pump is still very helpful however still needs adjustment. He also makes mention today that he feels like he has more irritation around the pump itself. Patient is asking if we can prescribe a certain type topical that he has gotten from his other doctor that has a couple different ingredients with lidocaine and capsaicin. Patient does state that he is scheduled for his surgery on January 22.Patient is currently managed with fentanyl 500 mcg/ml with a daily dose of 154.48 mcg/day. He denies any side effects. He has also prescribed compounded cream. His Benitez has been reviewed. Physical Exam: General: Alert and oriented x3, no acute distress, pleasant and cooperative Lungs: Respirations even and unlabored, symmetrical chest expansion Eyes: PERRL Musculoskeletal: Flexion and extension of lumbar [spine] somewhat guarded s econdary to pain, [antalgic gait noted] Neurological: Speech clear, no gross sensory deficit Procedure Details:: Informed consent was obtained and the risk and benefits of the procedure were explained to the patient. The patient had noninvasive monitoring placed including noninvasive blood pressure cuff and pulse oximeter. Patient's pump was interrogated. The area over the pump was cleansed with chlorhexidine as a cleansing solution. In sterile fashion the pump was accessed with a 22-gauge needle. Approximately 6.5 mls of the pump solution was removed and discarded appropriately. The pump was then refilled with 20 mL's of fentanyl 500 mcg/mL. The needle was withdrawn and a bandage was placed over the puncture site. The infusion rate was reprogrammed and increased to fentanyl 170.19 mg/day. The patient tolerated well with no complication. Plan and Disposition:: Patient tolerated the procedure well with no complications and was discharged neurologically intact. We will see if we can order the combination of lidocaine, menthol, menthol salve and capsaicin topical. Patient was counseled to let us know how the procedure goes. Patient will return to clinic on or before their next intrathecal refill date. We will see the patient back in the clinic at the next intrathecal refill. Patient has been instructed to contact the clinic with any concerns before the next appointment. Dr. Ceron has reviewed this note and agrees with this plan of care. This note was dictated using voice recognition software and make contain errors or omissions. -- It Is medically necessary for this patient to continue to have their intrathecal pump refilled at regular intervals. This patient had an intrathecal pain pump implanted after meeting criteria of chronic intractable pain for greater than 3 months and failing conservative treatments. Patient has committed and been compliant to the treatment plan and all planned follow up care. Since implantation of the intrathecal pain pump, the patient has had decreased pain and been more functional. Oral medications have been reduced including intake of oral opioids. Patient continues to do well with intrathecal therapy with decrease in pain symptoms and increase in functional status. Stopping intrathecal medications can lead to life threatening withdrawal, seizures, cardiac arrest, severe pain, and possible . Pumps that are not refilled at regular intervals can be damages and cause and need for replacement. We continually titrate dose and concentration to optimize pain relief and function. We are limited in concentration for certain drugs to safely deliver medications through the pump and stay within the recommendations from the Polyanalgesic Consensus Committee Guidelines. Depending on dose and concentration these pumps may need to be refilled sooner than 3 months as we titrate. A UDS is needed to verify patient's compliance with our office pain contract. This is ordered based off specific treatments related to chronic pain with the potential to abuse certain medications.
[2024-12-21 11:56] VITALS: BP 197/117; PULSE 91; RESP 18; O2SAT 96; BMI 31.1
[2024-12-21 12:03] VITALS: BP 177/101; PULSE 90; RESP 18; O2SAT 96
[2024-12-21 12:46] VITALS: BP 170/100; PULSE 87; RESP 20; O2SAT 95
== END 2024-12-21 12:03 | disposition home or self-care (01) ==
PROVIDERS: Visit Provider Nurse Practitioner Family
DX: M51.16 Intervertebral disc disorders with radiculopathy, lumbar region (principal); F17.210 Nicotine dependence, cigarettes, uncomplicated; K21.9 Gastro-esophageal reflux disease without esophagitis; I10 Essential (primary) hypertension; Z79.899 Other long term (current) drug therapy; Z98.890 Other specified postprocedural states; Z45.1 Encounter for adjustment and management of infusion pump
CPT/HCPCS: 62370